=== PATIENT | male | born 1960 | race Caucasian/White ===

== ENCOUNTER 2022-05-09 18:56 | Emergency (ER) | payer MEDICARE, MEDICAID, SELFPAY ==
[2022-05-09 18:58] VITALS: BP 152/72; PULSE 69; RESP 16; TEMP 36.4; O2SAT 97; BMI 23.7
[2022-05-09 20:00] VITALS: BP 145/70; PULSE 71; RESP 16; TEMP 36.7; O2SAT 97
--- NOTE | 2022-05-09 20:11 | ED_ITS ---
HPI - Extremity Injury (Lower) General Chief Complaint: Extremity Pain/Injury, Lower Stated Complaint: Leg Wound Time Seen by Provider: 05/09/22 18:59 History of Present Illness HPI Narrative: 62-year-old man presenting to the emergency department with concern of wound/abrasions to his legs, feet. He fell on railroad tracks tripping over concrete in some open sandals. Cleaned himself up real good in the shower nearly immediately. Since that time has been applying hydrogen peroxide and covering with Band-Aids. He has also been showering twice daily though it sounds like this is his custom. He has some pain. He notes how the bandages he has been applying stick to the wound healing up tissue. He has an abrasion on the outer left knee/upper leg as well as a couple spots on his toes bilaterally that are apparently less involved and is also incidentally noted now a new bruis e on his left back. He is not having any pleuritic pain. He has not had a fever. No purulent drainage. Called in to triage line and recommended to be seen. He had had an appointment for tomorrow but has to help his daughter unfortunately. Primary concern is delayed healing and potential infection. Related Data Home Medications Medication Instructions Recorded Confirmed alprazolam 0.5 mg tablet mg 05/09/22 aspirin 81 mg chewable tablet 05/09/22 atorvastatin 10 mg tablet mg 05/09/22 eszopiclone 1 mg tablet mg 05/09/22 losartan 50 mg-hydrochlorothiazide tab 05/09/22 12.5 mg tablet olanzapine 2.5 mg tablet mg 05/09/22 suvorexant 5 mg tablet (Belsomra) mg PO 05/09/22 venlafaxine 37.5 mg tablet mg 05/09/22 zolpidem 10 mg tablet mg 05/09/22 Allergies Allergy/AdvReac Type Severity Reaction Status Date / Time fluoxetine [From Prozac] Allergy Severe suicidal Verified 05/09/22 20:15 prednisone Allergy Severe suicidal, Verified 05/09/22 20:15 agitation lisinopril Allergy Intermediate joint Verified 05/09/22 20:16 pain, weakness Sulfa (Sulfonamide Allergy Mild Hives Verified 05/09/22 19:08 Antibiotics) Review of Systems Status of ROS: Reports: 6 or more systems reviewed and unremarkable except as noted in History and below [facility] Medical History (Updated 05/09/22 @ 20:06 by Dario Valdez RN) Alcohol use disorder, moderate, in sustained remission Bicuspid aortic valve Bilateral cataracts Blindness of one eye Essential hypertension History of attention deficit disorder History of personality disorder History of posttraumatic stress disorder (PTSD) History of TIA (transient ischemic attack) Hyperlipidemia Mitral valve disease Murmur Sleep apnea Social anxiety disorder Surgical History (Updated 05/09/22 @ 20:11 by Dario Valdez RN) History of arthroscopy of left shoulder History of cataract removal with insertion of prosthetic lens History of tonsillectomy Social History Smoking Status: Former smoker Do you use any of these nicotine containing products: None Second hand tobacco smoke exposure: No How often do you have a drink containing alcohol: never How often do you have six or more drinks on one occasion: Never AUDIT-C Alcohol total score: 0 Non-prescribed substance use: denies use Exam Narrative: Exam Narrative: Pleasant. NAD. Skin is warm and dry. Breathing easily with out splinting Left mid posterior lateral chest wall with large/half palm sized oval bruise. Not terribly tender. Primary area in question of his skin is a about 3 discrete areas the largest 1 being on the upper outer aspect of the lower leg on the left. These are scrapes with yellowing granulation tissue in some areas and removed of that somewhat in others. There is faint erythema around it. There is no induration or marked tenderness. No purulent drainage. Flexes and extends the knee without apparent difficulty Const: Vital Signs, click to edit/add: Vital Signs - 24 hr 05/09/22 18:58 05/09/22 20:00 Temperature 97.6 F 98.0 F Pulse Rate [Right Pulse Oximeter] 69 71 Respiratory Rate 16 16 Blood Pressure [Ri ght Upper Arm] 152/72 H 145/70 H Pulse Oximetry 97 97 Oxygen Delivery Me thod Room Air Room Air Documenting provider has reviewed patient's vital signs: yes Course Vital Signs Vital signs: Initial Vital Signs Temperature 97.6 F 05/09/22 18:58 Temperature Source Temporal Artery Scan 05/09/22 18:58 Pulse Rate 69 05/09/22 18:58 Pulse Rhythm 05/09/22 18:58 Respiratory Rate 16 05/09/22 18:58 Blood Pressure 152/72 H 05/09/22 18:58 Blood Pressure Mean 98 05/09/22 18:58 Blood Pressure Position Sitting 05/09/22 18:58 Pulse Oximetry 97 05/09/22 18:58 Oxygen Delivery Method 05/09/22 18:58 Vital Signs Temperature 97.6 F 05/09/22 18:58 Pulse Rate 69 05/09/22 18:58 Respiratory Rate 16 05/09/22 18:58 Blood Pressure 152/72 H 05/09/22 18:58 Pulse Oximetry 97 05/09/22 18:58 Oxygen Delivery Method 05/09/22 18:58 Temperature 98.0 F 05/09/22 20:00 Pulse Rate 71 05/09/22 20:00 Respiratory Rate 16 05/09/22 20:00 Blood Pressure 145/70 H 05/09/22 20:00 Pulse Oximetry 97 05/09/22 20:00 Oxygen Delivery Method 05/09/22 20:00 MDM - Extremity Injury (Lower) MDM Narrative Medical decision making narrative: Given bacitracin and dressing supplies no evidence of cellulitis or other deeper injury Discharge Plan Discharge Clinical Impression: Chest wall contusion, Abrasion Patient Disposition: Home, Self-Care Condition: Stable Additional Instructions: Yes, hydrogen peroxide or even rubbing alcohol is good for initial cleaning but then does delay wound healing if continue use. Avoid scraping off that whitish-yellow tissue that is growing over the top; this is attempted new skin growth. Watch for spreading redness, increasing pain, purulent drainage. Consider placing this bacitracin ointment a couple of times daily over the next few days and may be covering lightly with nonstick pad at night to protect from sheets or what not. Okay to get wet, even lightly clean once daily, but try not to soak the wounded areas over the next week. 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 In about 5 days I'd start to dry up generally/dry dressing. Prescriptions: No Action atorvastatin 10 mg tablet olanzapine 2.5 mg tablet alprazolam 0.5 mg tablet venlafaxine 37.5 mg tablet aspirin 81 mg tablet,chewable zolpidem 10 mg tablet losartan-hydrochlorothiazide 50-12.5 mg tablet eszopiclone 1 mg tablet Belsomra 5 mg tablet PO Label Comments: TAKE 1 TABLET BY MOUTH AT BEDTIME Stand Alone [facility]: [facility] Info Instructions
== END 2022-05-09 19:50 | disposition home or self-care (01) ==
PROVIDERS: Emergency Provider Family Medicine
DX: S20.212A Contusion of left front wall of thorax, initial encounter (principal); S80.812A Abrasion, left lower leg, initial encounter; W01.0XXA Fall on same level from slipping, tripping and stumbling without subsequent striking against object, initial encounter; Y93.01 Activity, walking, marching and hiking; Y92.89 Other specified places as the place of occurrence of the external cause; Y99.8 Other external cause status
CPT/HCPCS: 99282; 99283

== ENCOUNTER 2022-06-21 22:44 | Emergency (ER) | payer OTHER, MEDICAID, SELFPAY ==
[2022-06-21 22:50] VITALS: BP 156/77; PULSE 63; RESP 16; TEMP 36.4; O2SAT 97; BMI 24.2
--- NOTE | 2022-06-21 23:08 | ED.NURSE ---
Pt refuses covid/flu test, Dr. Carrington updated.
[2022-06-21 23:17] LABS: Lactate* 0.6 mmol/L (0.5-1.9)
[2022-06-21 23:20] LABS: Basophils Absolute Auto 0.05 K/uL (0.00-0.30); Basophils Percent Auto 0.8 % (0.0-3.0); Eosinophils Absolute Auto 0.15 K/uL (0.00-0.50); Eosinophils Percent Auto 2.4 % (0.0-7.0); Hematocrit 43.1 % (37.0-53.0); Hemoglobin* 14.8 gm/dL (13.5-17.5); Lymphocytes Absolute Auto 2.15 K/uL (0.90-2.90); Lymphocytes Percent Auto 34.9 % (20-44); Mean Corpuscular HGB Conc 34 gm/dL (32-36); Mean Corpuscular Hemoglobin 32 pg (26-34); Mean Corpuscular Volume 94 fL (80-100); Monocytes Percent Auto 12.3 % (0.0-11.0); Neutrophils Absolute Auto 3.05 K/uL (1.7-7.0); Neutrophils Percent Auto 49.6 % (42.0-72.0); Platelet Count* 225 K/uL (140-440); RDW Coefficient of Variation % 12.3 % (11.5-15.5); White Blood Count* 6.16 K/uL (4.50-11.00)
[2022-06-21 23:24] LABS: Slide Review Reflex No
[2022-06-21 23:34] LABS: Albumin* 4.7 g/dL (3.3-5.0); Chloride* 107 mmol/L (96-114); Potassium* 4.6 mmol/L (3.6-5.1); Sodium* 138 mmol/L (135-149)
[2022-06-21 23:36] LABS: Aspartate Amino Transferase* 29 U/L (12-35); Bilirubin Direct* 0.1 mg/dL (0.0-0.5); Bilirubin Total* 0.4 mg/dL (0.1-1.5); Total Protein* 7.4 g/dL (6.0-8.3)
[2022-06-21 23:37] LABS: Alanine Aminotransferase* 27 U/L (4-50); Alkaline Phosphatase* 68 U/L (40-150); Creatinine* 0.8 mg/dL (0.5-1.5); Est. Creatinine Clearance* 73.15; Estimated Glomerular Filt Rate 99 ml/min
[2022-06-21 23:38] LABS: Appearance Urine Clear (Clear); Bilirubin Urine Negative (Negative); Blood Urine Negative (Negative); Color Urine Yellow (Yellow); Glucose Urine Negative (Negative); Ketones Urine Negative (Negative); Leukocyte Esterase Urine Negative (Negative); Nitrite Urine Negative (Negative); Protein Urine Negative (Negative); Specific Gravity Urine >= 1.030 (1.000-1.030); Urobilinogen Urine 0.2 (0.2-1.0); pH Urine 5.5 (5.0-8.5)
[2022-06-21 23:38] LABS: Blood Urea Nitrogen* 23 mg/dL (7-30); Calcium* 9.8 mg/dL (8.4-10.6); Carbon Dioxide* 24 mmol/L (20-32); Glucose* 104 mg/dL (60-115)
--- OUTSIDE RECORDS SUMMARY | 2022-06-21 23:40 | XMS_ITS | Encounter Summary ---
:1960 Author Organization [facility] Address [address] [place] [id number] Care Team Providers Name Role Phone [facility] Primary Care Provider [phone] Reason for Referral Consultation (Routine: Next available opening) - Pending Review Specialty Diagnoses / Procedures Referred By Contact Refer red To Contact Genetics, Clinical Diagnoses Vision loss TIA (transient ischemic attack) Breezy Glynn MD [facility] [address] [place] [address] Referral ID Status Reason Start Date Expiration Date Visits V isits Requested Authorized [id number] Pending 03/27/2022 03/27/2023 1 1 Review Encounter Details Date Type Department Care Team Description 03/27/2022 Transcribe Orders GENERIC EXTERNAL Provider, Generic T IA (transient ischemic attack) (Primary Dx); DATA DEPARTMENT External Data Vision loss Social History Tobacco Use Types Packs/Day Years Used Date Smoking Tobacco: Never Assessed Sex Assigned at Date Recorded Not on file documented as of this encounter Plan of Treatment Scheduled Referrals Name Type Priority Associated Diagnoses Order S chedu Adult Genetics & Referral Routine: Next Vision loss Expected: Metabolism Referral available opening TIA (transient 0 03/27/2022, ischemic attack) Expires: 03/27/2023 documented as of this encounter Visit Diagnoses Diagnosis TIA (transient ischemic attack) - Primar y Unspecified transient cerebral ischemia Vision loss Unspecified visual loss documented in this encounter Care Teams Film And Video Editor Relationship Specialty Start Date End Date [facility] PCP - General 09/27/[address] [place] [id number] documented as of this encounter
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
--- OUTSIDE RECORDS SUMMARY | 2022-06-21 23:40 | XMS_ITS | Clinical Summary ---
:1960 Author Organization [place] Address [address] [place] [address] Care Team Providers Name Role Phone Clinic, [facility] Primary Care Provider Allergies Active Allergy Reactions Severity Noted Date Comments Aripiprazole Other (See Comments) 05/07/2013 Had a s ore throat and felt like he was goi ng to pass out Azelastine Other (See Comments) 06/22/2019 Fluoxetine Other (See Comments) 12/23/2013 Peconic villagomez icidal/agitated with one dose Lisinopril Other (See Comments) 01/06/2018 Joint p ain fatigue weakness - even a light la dder Morphine Nausea 03/23/2020 Prednisone Other (See Comments) 10/20/2014 Suicida l; too agitated Sulfa Drugs 09/27/2019 Tizanidine Other (See Comments) 12/28/2019 Legs ga ve out from underneath him. Won't take again. Encounters Date Type Specialty Care Team Description 03/27/2022 Transcribe Orders Provider, Generic TIA ( transient ischemic attack) (Primary Dx); External Data Vision loss from Last 3 Months Social History Tobacco Use Types Packs/Day Years Used Date Smoking Tobacco: Never Assessed Sex Assigned at Date Recorded Not on file Last Filed Vital Signs Vital Sign Reading Time Taken Comments Blood Pressure 179/105 05/05/2020 9:28 PM CDT Pulse 72 05/05/2020 9:28 PM CDT Temperature 36.7 ??C (98.1 ??F) 05/05/2020 9:28 PM CDT Respiratory Rate 20 05/05/2020 9:28 PM CDT Oxygen Saturation 98% 05/05/2020 9:28 PM CDT Inhaled Oxygen Concentration - - Weight - - Height - - Body Mass Index - - Plan of Treatment Health Maintenance Due Date Last Done Comments ADVANCE CARE PLANNING 1960 ANNUAL REVIEW OF HM ORDERS 1960 CT COLONOGRAPHY 1960 FIT-DNA (Cologuard) 1960 FIT 1960 FLEX SIG 1960 HEPATITIS B IMMUNIZATION (1 1960 of 3 - 3-dose series) COVID-19 Vaccine (#1) 1960 COLONOSCOPY 1969 COLORECTAL CANCER SCREENING 1969 HIV SCREENING 1974 HEPATITIS C SCREENING 1977 LIPID 1994 ZOSTER IMMUNIZATION (1 of 2009 2) DTAP/TDAP/TD IMMUNIZATION 09/02/2016 09/02/2006, 03/27/2006 , (3 - Td or Tdap) 03/27/2006, Additional history exists PHQ-2 (once per calendar 09/02/2021 year) INFLUENZA VACCINE (#1) 2022 06/30/2008, 06/30/2008, 09/27/2006 MEDICARE ANNUAL WELLNESS 03/12/2023 03/12/2022 VISIT IPV IMMUNIZATION Aged Out No longer eligi ble based on patient 's age to complete this topic MENINGITIS IMMUNIZATION Aged Out No longe r eligible based on patient 's age to complete this topic Pneumococcal Vaccine: Aged Out No longer eligible Pediatrics (0 to 5 Years) based on patient's age and At-Risk Patients (6 to to co mplete this topic 64 Years) Insurance Payer Benefit Plan / Subscriber ID Effective Phone Address T ype Group Dates MEDICARE MEDICARE [id number] 2019-Prese [phone] ATTN NATALIO OR Medicare nt [address] [place] [address] [place] [id number] 2019-Prese [phone] [address] Medicaid [address] [place] [address] Care Teams Legal Project Manager Relationship Specialty Start Date End Date Papo Parekh PCP - General 09/27/[address] [place] [id number]
--- OUTSIDE RECORDS SUMMARY | 2022-06-21 23:40 | XMS_ITS | Clinical Summary ---
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
--- OUTSIDE RECORDS SUMMARY | 2022-06-21 23:40 | XMS_ITS ---
:1960 Author Organization Cathy Ibarra MD Address [address] [place] [id number] Care Team Providers Name Role Phone CATHY IBARRA Unavailable Unavailable PROBLEMS Type Condition ICD9-CM Code [id number] Code Onset Condition SNO MED Code Dates Status Problem Intraspinal 324.1 Active 9081229 abscess Problem Pain in thoracic 724.1 Active 267 666143 spine ALLERGIES No Information ENCOUNTERS Encounter Location Date Diagnosis [facility] [address] [facility] 17 Sep, 2014 Pain in t horacic spine [facility] [place] [place] [address] and [place] [id number] abscess 324.1 IMMUNIZATIONS No Known Immunizations SOCIAL HISTORY Never Assessed REASON FOR REFERRAL FUNCTIONAL STATUS PLAN OF CARE VITAL SIGNS MEDICATIONS Unknown Medications PROCEDURES No Known procedures RESULTS No Results REASON FOR VISIT Please see [facility] consult report Insurance Providers [facility] Health Member Patient Patient Patient Patient Patient Subscriber Subscriber Subscriber Group Insurance Plan Plan Plan Plan ID Relationship Address Phone Name Date of ID Name Date of No Type Insurance Insurance Insurance Coverage to Subscriber Address Phone Name Dates MEDICARE [phone] MEDICARE self Marco [id number] PART B [id number] [place] [id number]
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
--- OUTSIDE RECORDS SUMMARY | 2022-06-21 23:40 | XMS_ITS ---
:1960 Author Organization Cathy Ibarra MD Address [address] [place] [phone] Care Team Providers Name Role Phone CATHY IBARRA Unavailable Unavailable PROBLEMS Type Condition ICD9-CM Code [id number] Code Onset Condition SNO MED Code Dates Status Problem Intraspinal 324.1 Active 6765436 abscess Problem Pain in thoracic 724.1 Active 267 174637 spine ALLERGIES No Information ENCOUNTERS Encounter Location Date Diagnosis [place] [address] [facility] 17 Sep, 2014 Pain in t horacic [facility] [place] [place] [address] and [place] [id number] abscess 324.1 IMMUNIZATIONS No Known Immunizations SOCIAL HISTORY Never Assessed REASON FOR REFERRAL FUNCTIONAL STATUS PLAN OF CARE VITAL SIGNS MEDICATIONS Unknown Medications PROCEDURES No Known procedures RESULTS No Results REASON FOR VISIT Please see [facility] consult report Insurance Providers [facility] Health Health Member Patient Patient Patient Patient Patient Subscriber Subscriber Subscriber Group Insurance Plan Plan Plan Plan ID Relationship Address Phone Name Date of ID Name Date of No Type Insurance Insurance Insurance Coverage to Subscriber Address Phone Name Dates MEDICARE [phone] MEDICARE self Marco [id number] PART B [id number] [place] [address]
--- OUTSIDE RECORDS SUMMARY | 2022-06-21 23:40 | XMS_ITS | Encounter Summary ---
:1960 Author Organization [place] Address [facility] [place] [address] Care Team Providers Name Role Phone Unavailable Primary Care Provider Unavailable Encounter Details Date Type Department Care Team Description 10/18/2014 Telephone [facility] Nurse Aline Pardo, RN [employer] [address] [place] [address] Social History Tobacco Use Types Packs/Day Years Used Date Smoking Tobacco: Never Assessed Sex Assigned at Date Recorded Not on file documented as of this encounter Miscellaneous Notes Telephone Encounter - Constance Pardo, RN - 10/18/2014 11:56 PM CST Call Type: Triage Call Presenting Problem: I have had so much more anxiety . I am very dizzy. It does not go away. I was at ER today, then I saw a counselor. I just cannot get ahead of this. Tonight my head is just spinning. I can't take it. Caller denies any suicidal ideation. Triaged to ER. He will not drive and will go to [facility]. Triage Note: Guideline Title: Anxiety: Panic ; Anxiety Recommended Disposition: See ED Immediately Original Inclination: Did not know what to do Override Disposition: Intended Action: Follow advice given Physician Contacted: No Dizziness, faintness, or lightheadedness lasting more than 15 minutes ? YES Unable to stand due to faintness, dizziness, or lightheadedness ? NO Not oriented to person, time, and place ? NO Describing symptoms of depression ? NO Severe breathing problems ? NO Hearing voices that no one else hears or seeing things that no one else sees ? NO Any suicidal or homicidal attempt(s) or gesture(s) in progress ? NO Any other cardiac signs/symptoms for more than 5 minutes, now or within last hour. Pain is NOT associated with taking a deep breath or a productive cough, movement, or touch to a localized area on the chest or upper body. ? NO Any homicidal/destructive ideation, any suicidal ideation, any history of suicide attempts, and/or any history of self destructive behavior ? NO Any homicidal/destructive ideation, any suicidal ideation, any history of suicide attempts, and/or any history of self destructive behavior ? NO Physician Instructions: Care Advice: Protect the patient from falling or other harm. Another adult should drive. Should not be alone, arrange for support (family member, friend, etc.). IMMEDIATE ACTION Avoid the use of stimulants including caffeine (coffee, some soft drinks, some energy drinks, tea and chocolate), cocaine, and amphetamines. Also avoid drinking alcohol. 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
--- OUTSIDE RECORDS SUMMARY | 2022-06-21 23:40 | XMS_ITS | Encounter Summary ---
:1960 Author Organization [place] Address [address] [place] [address] Care Team Providers Name Role Phone [facility] Primary Care Provider [phone] Encounter Details Date Type Department Care Team Description 09/27/2019 Travel Social History Tobacco Use Types Packs/Day Years Used Date Smoking Tobacco: Never Assessed Sex Assigned at Date Recorded Not on file documented as of this encounter Plan of Treatment Not on filedocumented as of this encounter Visit Diagnoses Not on filedocumented in this encounter Care Teams Gym Supervisor Relationship Specialty Start Date End Date [facility] PCP - General 09/27/[address] [place] [address] documented as of this encounter
[2022-06-21 23:41] LABS: C Reactive Protein* < 0.5 mg/dL (0.5-1.0)
[2022-06-21 23:44] LABS: RBC Urine 0-2 (0-2); Squamous Epithelial Cell Urine Few (None-Few); WBC Urine 0-2 (0-5)
[2022-06-21 23:54] LABS: Troponin I* < 0.01 ng/mL (0.01-0.04)
--- NOTE | 2022-06-22 00:53 | ED.GENADULT ---
HPI - General Adult General Chief complaint: Weakness Stated complaint: weakness Time Seen by Provider: 06/21/22 22:46 Source: patient Mode of arrival: ambulatory Limitations: no limitations History of Present Illness HPI narrative: 62-year-old male coming in today complaining of feeling weak. He states he was walking up the steps at a game arena, and he felt like his legs were very heavy when he got towards the top of the bleachers. He denied feeling any chest pain. He thought perhaps he felt a little short of breath. He states that it is he was able to finish getting to where he was going but he feels more tired than normal. He denies any recent illness, fevers or chills. No nausea or vomiting. Normal appetite today although he has eaten very little because he has been busy. He states that he has barely had 1 glass of water if that today as well. Feels like he slept fine last night. Denies any tobacco or alcohol use today. States that he has not worked out in about a month. He denies any skin rashes. He denies any focal neurologic deficits. He states that the weakness and having he felt was bilateral of both legs. He does not really feel that weak right now. Related Data Home Medications Medication Instructions Recorded Confirmed alprazolam 0.5 mg tablet mg 05/09/22 aspirin 81 mg chewable tablet 05/09/22 atorvastatin 10 mg tablet mg 05/09/22 eszopiclone 1 mg tablet mg 05/09/22 losartan 50 mg-hydrochlorothiazide tab 05/09/22 12.5 mg tablet olanzapine 2.5 mg tablet mg 05/09/22 suvorexant 5 mg tablet (Belsomra) mg PO 05/09/22 venlafaxine 37.5 mg tablet mg 05/09/22 zolpidem 10 mg tablet mg 05/09/22 Allergies Allergy/AdvReac Type Severity Reaction Status Date / Time fluoxetine [From Prozac] Allergy Severe suicidal Verified 06/21/22 22:58 prednisone Allergy Severe suicidal, Verified 06/21/22 22:58 agitation lisinopril Allergy Intermediate joint Verified 06/21/22 22:58 pain, weakness Sulfa (Sulfonamide Allergy Mild Hives Verified 06/21/22 22:58 Antibiotics) Review of Systems Status of ROS: Reports: 10 or more systems reviewed and unremarkable except as noted in History and below PFSH PFSH Medical History Alcohol use disorder, moderate, in sustained remission Bicuspid aortic valve Bilateral cataracts Blindness of one eye Essential hypertension History of attention deficit disorder History of personality disorder History of posttraumatic stress disorder (PTSD) History of TIA (transient ischemic attack) Hyperlipidemia Mitral valve disease Murmur Sleep apnea Social anxiety disorder Surgical History History of arthroscopy of left shoulder History of cataract removal with insertion of prosthetic lens History of tonsillectomy Social History Smoking Status: Former smoker Do you use any of these nicotine containing products: None Second hand tobacco smoke exposure: No How often do you have a drink containing alcohol: monthly or less AUDIT-C Alcohol total score: 1 Non-prescribed substance use: denies use Exam Narrative: Exam Narrative: Well-nourished well-developed patient in no acute distress. Alert and oriented. Answers questions appropriately. Mood and affect are appropriate. Thoughts are goal oriented and rational. No tangential or magical thinking noted. Patient speaks in full sentences without needing to catch their breath. Speech is not slurred or pressured. There is no facial asymmetry. HEENT: Normocephalic atraumatic. Pupils are equally round reactive to light. Extraocular muscles are intact. Conjunctivae are moist without any icterus noted. Moist mucous membranes. Posterior pharynx is normal. Neck is soft without any lymphadenopathy or thyromegaly. No masses are appreciated. Cardiovascular: Heart is regular rate and rhythm S1 and S2 are present without any murmurs. Lungs: Clear to auscultation bilaterally no wheezes rhonchi or rales are appreciated. Patient takes deep breaths without any discomfort. Abdomen: Soft and nontender nondistended with normal bowel sounds. Extremities: Bilateral lower extremities are without edema. Normal DP and PT pulses. Skin: Well perfused without any obvious rashes. Strength is 5/5 of the upper and lower extremities. Reflexes are 2+ and symmetric at the knees. Romberg sign is negative. Cranial nerves 3-12 are normal. There is no nystagmus either horizontally or vertically. Gait is normal. Const: Vital Signs, click to edit/add: Vital Signs - 24 hr 06/21/22 22:50 Temperature 97.6 F Pulse Rate [Right Pulse Oximeter] 63 Respiratory Rate 16 Blood Pressure [Le ft Upper Arm] 156/77 H Pulse Oximetry 97 Oxygen Delivery Me thod Room Air Course Course Hospital Course: Proceeded with blood work which was unremarkable. EKG showed normal sinus rhythm. Vital Signs Vital signs: Initial Vital Signs Temperature 97.6 F 06/21/22 22:50 Temperature Source Temporal Artery Scan 06/21/22 22:50 Pulse Rate 63 06/21/22 22:50 Respiratory Rate 16 06/21/22 22:50 Blood Pressure 156/77 H 06/21/22 22:50 Blood Pressure Mean 103 06/21/22 22:50 Blood Pressure Position Semi-Fowlers 06/21/22 22:50 Pulse Oximetry 97 06/21/22 22:50 Oxygen Delivery Method 06/21/22 22:50 Vital Signs Temperature 97.6 F 06/21/22 22:50 Pulse Rate 63 06/21/22 22:50 Respiratory Rate 16 06/21/22 22:50 Blood Pressure 156/77 H 06/21/22 22:50 Pulse Oximetry 97 06/21/22 22:50 Oxygen Delivery Method 06/21/22 22:50 Temperature 97.6 F 06/21/22 22:50 Pulse Rate 63 06/21/22 22:50 Respiratory Rate 16 06/21/22 22:50 Blood Pressure 156/77 H 06/21/22 22:50 Pulse Oximetry 97 06/21/22 22:50 Oxygen Delivery Method 06/21/22 22:50 Medical Decision Making MDM Narrative Medical decision making narrative: 62-year-old male with episode of feeling weak, heavy legs, fatigue. We discussed the multiple etiologies for these symptoms and we discussed that he should follow up with his primary care provider at this time for further testing if he does not improve after a good night's sleep, full day of nutritious meals and increasing his water intake. Certainly return to the ED if he develops increasing shortness of breath or chest pain. Patient was agreeable with everything we discussed. Had no other questions. Medical Records Medical records reviewed: Yes I reviewed the patient's medical records Lab Data Lab results reviewed: Yes I reviewed the patient's lab results Labs: Lab Results 06/21/22 06/21/22 06/21/22 Range/Units 23:10 23:10 23:10 WBC 6.16 (4.50-11.00) K/uL RBC 4.60 (4.30-5.90) m/uL Hgb 14.8 (13.5-17.5) gm/dL Hct 43.1 (37.0-53.0) % MCV 94 (80-100) fL MCH 32 (26-34) pg MCHC 34 (32-36) gm/dL RDW Coeff of Remi 12.3 (11.5-15.5) % Plt Count 225 (140-440) K/uL Neut % (Auto) 49.6 (42.0-72.0) % Lymph % (Auto) 34.9 (20-44) % [place] % (Auto) 12.3 H (0.0-11.0) % Eos % (Auto) 2.4 (0.0-7.0) % Baso % (Auto) 0.8 (0.0-3.0) % Neut # (Auto) 3.05 (1.7-7.0) K/uL Lymph # (Auto) 2.15 (0.90-2.90) K/uL [place] # (Auto) 0.80 (0.00-0.90) K/UL Eos # (Auto) 0.15 (0.00-0.50) K/uL Baso # (Auto) 0.05 (0.00-0.30) K/uL Abs Immat Gran (auto) 0.00 (0.00-0.30) K/uL Sodium 138 (135-149) mmol/L Potassium 4.6 (3.6-5.1) mmol/L Chloride 107 (96-114) mmol/L Carbon Dioxide 24 (20-32) mmol/L BUN 23 (7-30) mg/dL Creatinine 0.8 (0.5-1.5) mg/dL Estimated Creat Clear 73.15 Estimated GFR 99 ml/min Glucose 104 (60-115) mg/dL Lactate (0.5-1.9) mmol/L Calcium 9.8 (8.4-10.6) mg/dL Total Bilirubin 0.4 (0.1-1.5) mg/dL Direct Bilirubin 0.1 (0.0-0.5) mg/dL AST 29 (12-35) U/L ALT 27 (4-50) U/L Alkaline Phosphatase 68 (40-150) U/L Troponin I < 0.01 L (0.01-0.04) ng/mL C-Reactive Protein < 0.5 L (0.5-1.0) mg/dL Total Protein 7.4 (6.0-8.3) g/dL Albumin 4.7 (3.3-5.0) g/dL TSH (0.270-4.20) uIU/mL Urine Color (Yellow) Urine Appearance (Clear) Urine pH (5.0-8.5) Ur Specific [place] (1.000-1.030) Urine Protein (Negative) Urine Glucose (UA) (Negative) Urine Ketones (Negative) Urine Blood (Negative) Urine Nitrite (Negative) Urine Bilirubin (Negative) Urine Urobilinogen (0.2-1.0) Ur Leukocyte Esterase (Negative) Urine RBC (0-2) Urine WBC (0-5) Ur Squamous Epith Cells (None-Few) Urine Bacteria (None) 06/21/22 06/21/22 06/21/22 Range/Units 23:10 23:10 23:30 WBC (4.50-11.00) K/uL RBC (4.30-5.90) m/uL Hgb (13.5-17.5) gm/dL Hct (37.0-53.0) % MCV (80-100) fL MCH (26-34) pg MCHC (32-36) gm/dL RDW Coeff of Remi (11.5-15.5) % Plt Count (140-440) K/uL Neut % (Auto) (42.0-72.0) % Lymph % (Auto) (20-44) % [place] % (Auto) (0.0-11.0) % Eos % (Auto) (0.0-7.0) % Baso % (Auto) (0.0-3.0) % Neut # (Auto) (1.7-7.0) K/uL Lymph # (Auto) (0.90-2.90) K/uL [place] # (Auto) (0.00-0.90) K/UL Eos # (Auto) (0.00-0.50) K/uL Baso # (Auto) (0.00-0.30) K/uL Abs Immat Gran (auto) (0.00-0.30) K/uL Sodium (135-149) mmol/L Potassium (3.6-5.1) mmol/L Chloride (96-114) mmol/L Carbon Dioxide (20-32) mmol/L BUN (7-30) mg/dL Creatinine (0.5-1.5) mg/dL Estimated Creat Clear Estimated GFR ml/min Glucose (60-115) mg/dL Lactate 0.6 (0.5-1.9) mmol/L Calcium (8.4-10.6) mg/dL Total Bilirubin (0.1-1.5) mg/dL Direct Bilirubin (0.0-0.5) mg/dL AST (12-35) U/L ALT (4-50) U/L Alkaline Phosphatase (40-150) U/L Troponin I (0.01-0.04) ng/mL C-Reactive Protein (0.5-1.0) mg/dL Total Protein (6.0-8.3) g/dL Albumin (3.3-5.0) g/dL TSH 2.750 (0.270-4.20) uIU/mL Urine Color Yellow (Yellow) Urine Appearance Clear (Clear) Urine pH 5.5 (5.0-8.5) Ur Specific [place] >= 1.030 (1.000-1.030) Urine Protein Negative (Negative) Urine Glucose (UA) Negative (Negative) Urine Ketones Negative (Negative) Urine Blood Negative (Negative) Urine Nitrite Negative (Negative) Urine Bilirubin Negative (Negative) Urine Urobilinogen 0.2 (0.2-1.0) Ur Leukocyte Esterase Negative (Negative) Urine RBC 0-2 (0-2) Urine WBC 0-2 (0-5) Ur Squamous Epith Cells Few (None-Few) Urine Bacteria None (None) ECG Data Attestation: I personally reviewed and interpreted this ECG as follows: (Normal sinus rhythm, pulse 62, no acute ST changes) Discharge Plan Discharge Clinical Impression: Weakness Patient Disposition: Home, Self-Care Condition: Stable Additional Instructions: Recommend you start your exercise program again. Make sure you are eating healthy, nutritious foods and increase your water intake on a daily basis. If you do not notice a difference in the next couple of days, follow-up with your primary care provider for further testing. Prescriptions: No Action atorvastatin 10 mg tablet olanzapine 2.5 mg tablet alprazolam 0.5 mg tablet venlafaxine 37.5 mg tablet aspirin 81 mg tablet,chewable zolpidem 10 mg tablet losartan-hydrochlorothiazide 50-12.5 mg tablet eszopiclone 1 mg tablet Belsomra 5 mg tablet PO Label Comments: TAKE 1 TABLET BY MOUTH AT BEDTIME Follow Up/Referrals: Breezy Gylnn MD [Primary Care Provider] - Stand Alone Forms: [employer] Info Instructions
== END 2022-06-22 00:15 | disposition home or self-care (01) ==
PROVIDERS: Emergency Provider Family Medicine; PCP Family Medicine
DX: R53.1 Weakness (principal); R53.83 Other fatigue
CPT/HCPCS: 36415; 80048; 80076; 81001; 83605; 84443; 84484; 85025; 86140; 87086; 87631; 93005; 99284

== ENCOUNTER 2022-08-31 14:52 | Emergency (ER) | payer OTHER, MEDICAID, SELFPAY ==
[2022-08-31 14:55] VITALS: BP 186/83; PULSE 62; TEMP 35.9; O2SAT 99; BMI 25.8
[2022-08-31 15:09] VITALS: BP 176/89; PULSE 63; O2SAT 99
[2022-08-31 15:10] VITALS: PULSE 64; O2SAT 99
[2022-08-31 15:30] VITALS: PULSE 71; O2SAT 98
[2022-08-31 15:32] VITALS: BP 171/87; PULSE 61; O2SAT 98
[2022-08-31 15:33] VITALS: PULSE 58; O2SAT 98
--- OUTSIDE RECORDS SUMMARY | 2022-08-31 15:39 | XMS_ITS ---
:1960 Author Organization Cathy Ibarra MD Address [address] [place] [id number] Care Team Providers Name Role Phone CATHY IBARRA Unavailable Unavailable PROBLEMS Type Condition ICD9-CM Code [id number] Code Onset Condition SNO MED Code Dates Status Problem Intraspinal 324.1 Active 0991526 abscess Problem Pain in thoracic 724.1 Active 267 352385 spine ALLERGIES No Information ENCOUNTERS Encounter Location Date Diagnosis [place] [address] 17 Sep, 2014 Pain in t horacic [facility] [place] [place] [address] and [place] [id number] abscess 324.1 IMMUNIZATIONS No Known Immunizations SOCIAL HISTORY Never Assessed REASON FOR REFERRAL FUNCTIONAL STATUS PLAN OF CARE VITAL SIGNS MEDICATIONS Unknown Medications PROCEDURES No Known procedures RESULTS No Results REASON FOR VISIT Please see [facility] consult report Insurance Providers [facility] Member Patient Patient Patient Patient Patient Subscriber Subscriber Subscriber Group Insurance Plan Plan Plan Plan ID Relationship Address Phone Name Date of ID Name Date of No Type Insurance Insurance Insurance Coverage to Subscriber Address Phone Name Dates MEDICARE [phone] MEDICARE self Marco [id number] PART B [id number] [place] [address]
--- OUTSIDE RECORDS SUMMARY | 2022-08-31 15:40 | XMS_ITS ---
:1960 Author Organization Cathy Ibarra MD Address [address] [place] [id number] Care Team Providers Name Role Phone CATHY IBARRA Unavailable Unavailable PROBLEMS Type Condition ICD9-CM Code [id number] Code Onset Condition SNO MED Code Dates Status Problem Intraspinal 324.1 Active 0369866 abscess Problem Pain in thoracic 724.1 Active 267 723493 spine ALLERGIES No Information ENCOUNTERS Encounter Location Date Diagnosis [place] [address] [facility] 17 Sep, 2014 Pain in t horacic spine [facility] [place], [place] [address] and [place] [id number] abscess 324.1 IMMUNIZATIONS No Known Immunizations SOCIAL HISTORY Never Assessed REASON FOR REFERRAL FUNCTIONAL STATUS PLAN OF CARE VITAL SIGNS MEDICATIONS Unknown Medications PROCEDURES No Known procedures RESULTS No Results REASON FOR VISIT Please see [facility] consult report Insurance Providers [facility] Health Member Patient Patient Patient Patient Patient Subscriber Subscriber Subscriber Group Insurance Plan Plan Plan Plan ID Relationship Address Phone Name Date of ID Name Date of No Type Insurance Insurance Insurance Coverage to Subscriber Address Phone Name Dates MEDICARE [phone] MEDICARE self Marco [id number] PART B [id number] [place] [address]
--- OUTSIDE RECORDS SUMMARY | 2022-08-31 15:40 | XMS_ITS | Continuity of Care Document ---
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 Patient ed on findings. P rescribed Combigan BID OS. Patient instructed to contact E&V immediately if condition or vision worsens. Voiced understanding. RTC in 7-10 days for IOP check. ?? Ordered: Combigan ophthalmic solution, 1 drops, E ye-Left, BID, # 15 mL, 1 Refill(s), Start Date: 08/09/22 16:15:00 SOFTWARE ENGINEERING MANAGER, Pharmacy: [facility] #[id number] ?? 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 ?H33.22 [address] OS. H/o ocular trauma in childhoo d OS. Patient ed on exam findings and on signs/symptoms of retinal detachment. Patient instructed to contact E&V immediately if experiences an increase in hammad aters/flashes/curtaining or veiling of v ision. Voiced understanding. Patient instructed to follow-up with his retina specialist as directed (located in [place]/pt reports having appt scheduled at end of August). Voiced understanding. Monitor. ? 3.??History of eye trauma??Z87.828 see H40.052 ? 4.??Pseudophakia of both eyes??Z96.1 PCIOL centered OU. Patient ed on finding s. Monitor. ? Return to Clinic: ?Return for IOP check in 7-10 d ays ? I, Angela Murillo, Optometry High School [employer] Teacher, ??a m scribing for, ??and in the presence of, Dr. Wyman.?? I, Dr. Shabbir Wyamn, personally perfor med the service documented, as scribed by Angela Murillo, Optometry [employer] Teacher, in my presence, and authenticate that the documentation accurately represents these services and the decision I made. Future Appointments Functional Status 08/09/22 Recent Travel History No recent travel Family Member Travel History No recent travel Other exposure to Infectious Disease None Medications Combigan ophthalmic solution 1 drops, Eye-Left, BID, # 15 mL, 1 Refill(s), Start Date: 08/09/22 16:15:00 SOFTWARE ENGINEERING MANAGER, Pharmacy: [facility] #[id number] Start Date: 08/09/22 Stop Date: 10/08/22 Status: Orderedzolpidem 0 Refill(s), Start Date: 08/09/22 15:09:00 SOFTWARE ENGINEERING MANAGER Start Date: 08/09/22 Status: Ordered Problem List Condition Confirmation Course Effective Dates Status Health Stat us Informant Pseudophakia of Confirmed Active both eyes History of eye Confirmed Active trauma Ocular hypertension Confirmed Active of left eye Old retinal Confirmed Active detachment of left eye Social History Social History Type Response Tobacco Tobacco Use: Never tobacco u ser. Sex Male Optometry Outpatient Note Rachel AbrahamA: PERFORM Event Display: Optometry Office Clinic Note Authored Date: [id number] Electronically Signed on 08/09/22 04:18 PM Rachel Abraham MANAGER SEARCH Electronically Signed on 08/09/22 04:25 PM Garo Shabbir OD Ophthalmology Outpatient Note Shabbir Wyman OD: MODIFY Shabbir Wyman OD: MODIFY Nadia Holland STORE STOCK HELP: PERFORM, MODIFY Nadia Holland STORE STOCK HELP: MODIFY, MODIFY, MODIFY Angela Murillo STORE STOCK HELP: MODIFY AbrahamRachel chavez Mark MANAGER SEARCH: MODIFY Event Display: Ophthalmology Office Clinic Note Authored Date: [id number] LYLY ARANDA JR :1960 Age:62 years Sex:Male Visit Date:08/09/2022 Chief Complaint New patient complains of pressure sensation OS. History of Present Illness New patient is here today for a check eye OS. Patient states that, about 2 weeks ago, he began to get a pressure sensation in the left eye. Patient states this that this left eye has also had some blurry vision in the left eye since this began as well, which has also been on and off. Patient states that he has had a vitrectomy of the left eye at least three time, as well as a partial retinal detachment that has been previously lasered. Patient feels like his current symptoms may be related to his current glasses, as he feels they are not working well. PT states he did have an episode 5 days ago??where??he noticed floaters, small black dots, OU??and some flashes??in his vision, followed by a migraine, PT thinks it may have been related to elevated blood pressure. PT states there is a history of trauma to the OS in his childhood. Pt states he sees two different providers for his eye care. PT sees Dr. Emmanuel Gusman with [facility] in [place], [place]; and Dr. Jorge A Enriquez with [facility] [place]. No other vision complaints at this time. ? Mental Status:??alert & oriented x3, appropriate mood & affect Review of Systems Constitutional ROS: Within normal limits HEENT ROS: Other: Hx of vitretocmy OS, Hx of retinal detachment OS, pseudophakia OU, irregular iris OS Respiratory ROS: Within normal limits Cardiovascular ROS: Other: high BP, high cholesterol GI ROS: Within normal limits ROS: Within normal limits Dion/Lymph ROS: Within normal limits Endocrine ROS: Within normal limits Immunologic ROS: Within normal limits Musculoskeletal ROS: Within normal limits Integumentary ROS: Within normal limits Neuro ROS: Within normal limits Psychiatric ROS: Within normal limits Problem List/Past Medical History Ongoing No qualifying data Historical No qualifying data Medications Inpatient No active inpatient medications Home zolpidem Allergies No Known Allergies Social History Electronic Cigarette/Vaping Electronic Cigarette Use: Never. Tobacco Tobacco Use: Never tobacco user. Physical Exam Ophthalmology Measurements Visual Acuity 08/09/2022 14:59 SOFTWARE ENGINEERING MANAGER sc cc cCL ph Low Vision TestOD 20/30-2 20/15-1 OS 20/40-1 20/25-1 sc near cc near cCL near Testing AtOD OS Distance Correction Without Correction Near Correction Comments: Pupil Measurements 08/09/2022 14:59 SOFTWARE ENGINEERING MANAGER Are Pupils Equal? Yes In Dark In Light Diameter RAPD Shape Diameter RAPD ShapeOD 3.5 mm Not present Round OS 3.5 mm Not present Surgical Comments: Motility 08/09/2022 14:59 SOFTWARE ENGINEERING MANAGER Ocular Motility: OD OS SR IO IO SR LR MR MR LR IR SO SO IR Comments: FROM OU, patient denies diplopia, but report sharp pressrue-type pain sup OU with gaze inall directions. Visual Lazaro 08/09/2022 14:59 SOFTWARE ENGINEERING MANAGER Normal by confrontation testing OU OD OS Comments: Full to finger count OU Tonometry 08/09/2022 Time of Test 15:26:00 15:42:00 OD 14 12 OS 29 24 IOP Method Tonopen Tonopen Comments 95% ED, first attempt OS 31 95% TAJ Second IOP check performed post dilation Dilation 08/09/2022 14:59 SOFTWARE ENGINEERING MANAGER Dilation Time Dilated 15:26:00 Medication for Dilation tropicamide 1%, phenylephrine 2.5% Patient Education Dilation Response Comments: Color Vision Test 08/09/2022 14:59 SOFTWARE ENGINEERING MANAGER Test Type: Ishihara Correct Total Plates CommentsOD 9 9 OS 9 9 ?? I, Nadia Holland CPO, am scribing for, and in the presence of, Dr. Wyman.?? I, Dr. Shabbir Wyman, personally performed the service documented, as scribed by Nadia Holland in my presence, and authenticate that the documentation accurately represents these services and the decision I made. ? External Examination: ?? Slit Lamp Exam?Anterior Segment ?Right Eye ??Left Eye ??Periorbital: ?wnl ??wnl ??Lids/Lashes: ??MGD, TEL ??MGD, TEL ??Lacrimal System/Tears: ??wnl ??wnl ??Conjunctiva: ??wnl ??wnl ??Sclera: ??wnl ??wnl ??Cornea: ??clear ??clear ??Anterior Chamber: ??4+ D&Q ??4+ D&Q ??Iris: ??wnl ??fibrosis, atrophy temp ??Lens: ??centered PCIOL ??centered PCIOL ? Posterior Segment ?View:?90D lens / 20D lens / dilated views OU?Right Eye ??Left Eye ??Vitreous: ??syneresis, no Downs's signs ??syneresis, no Mere's signs ??Optic Nerve: ??Matthews, distinct ??Matthews, distinct ??Cup/Disc Ratio: ??0.15/0.15 ??0.3/0.3 ??Vessels: ??wnl ??wnl ??Macula: ??ERM ??ERM ??Periphery: ??No BHTs 360 ??old RD with barricade laser scars, no new BHTs 360 ?Macular OCT Testing ?Indication for OCT:??Monitor for progression of condition?OCT Results:?OD Macular OCT Interpretation: ?Image Quality:??Good:?56 ?Central Macular Thickness:??184 ?Comments:??normal foveal contour,??mild disorganization of retinal layers, mild ERM, no edema, no CNVM, no comparison available ?OS Macular OCT Interpretation: ?Image Quality:??Good:43?Central Macular Thickness:??202 ?Comments:??normal foveal contour,??mild disorganization of retinal layers, mild ERM, no edema, no CNVM, no comparison available ? Assessment/Plan 1.??Ocular hypertension of left eye??H40.052 Ocular HTN OS. Patient ed on findings. Prescribed Combigan BID OS. Patient instructed to contact E&V immediately if condition or vision worsens. Voiced understanding. RTC in 7-10 days for IOP check. ?? Ordered: Combigan ophthalmic solution, 1 drops, Eye-Left, BID, # 15 mL, 1 Refill(s), Start Date: 08/09/22 16:15:00 SOFTWARE ENGINEERING MANAGER, Pharmacy: [facility] #[id number] ?? 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 H/o ocular trauma in childhood OS. Patient ed on exam findings and on signs/symptoms of retinal detachment. Patient instructed to contact E&V immediately if experiences an increase in floaters/flashes/curtaining or veiling of vision. Voiced understanding. Patient instructed to follow-upwith his retina specialist as directed (located in [place]/pt reports having appt scheduled at [facility] August). Voiced understanding. Monitor. ? 3.??History of eye trauma??Z87.828 see H40.052 ? 4.??Pseudophakia of both eyes??Z96.1 PCIOL centered OU. Patient ed on findings. Monitor. ? Return to Clinic: ?Return for IOP check in 7-10 days ? I, Angela Murillo, Optometry [employer], ??am scribing for, ??and in the presence of, Dr. Wyman.?? I, Dr. Shabbir Wyman, personally performed the service documented, as scribed by Angela Murillo, Optometry [employer] Teacher, in my presence, and authenticate that the documentation accurately represents these services and the decision I made. Nadia Holland CPO Electronically Signed on 08/09/22 07:05 PM Shabbir Wyman OD
--- OUTSIDE RECORDS SUMMARY | 2022-08-31 15:40 | XMS_ITS | Continuity of Care Document ---
:1960 Author Organization [facility] Address [address] [place] [address]- Encounter [facility] [id number] Date(s): 08/16/22 - 08/16/22 [facility] [place] [address] [place] [address]- Encounter Diagnosis Ocular hypertension of left eye (Discharge Diagnosis) - 08/16/22 History of eye trauma (Discharge Diagnosis) - 08/16/22 Pseudophakia of both eyes (Discharge Diagnosis) - 08/16/22 Discharge Disposition: Home or Self Care Attending Physician: Shabbir Wyman OD Allergies, Adverse Reactions, Alerts No Known Allergies Assessment and Plan Extracted from: Title: E&V Office Visit Author: Kathie Mauricio Date: 2 1.??Ocular hypertension of left eye??H40 .052 H/o ocular HTN OS. IOP improved with use of Combigan BID OS. Patient ed on findings. CPM. Patient instructed to follow-up with his managing eyecare providers in [place]. Voiced understanding. RTC PRN. ?? 2.??History of eye trauma??Z87.828 see H40.052 ?? 3.??Pseudophakia of both eyes??Z96.1 PCIOL OU. Condition stable. Patient ed o n findings. Monitor. ? Return to Clinic: RTC PRN. ? I, Angela Murillo, Optometry Director Of Neurology, ??a m scribing for, ??and in the presence of, Dr. Wyman.?? I, Dr. Shabbir Wyman, personally perfor med the service documented, as scribed by Angela Murillo, Optometry Director Of Neurology, in my presence, and authenticate that the documentation accurately represents these services and the decision I made. Functional Status 08/16/22 Recent Travel History No recent travel Family Member Travel History No recent travel Other exposure to Infectious Disease None Medications Combigan ophthalmic solution 1 drops, Eye-Left, BID, # 15 mL, 1 Refill(s), Start Date: 08/09/22 16:15:00 NEWS PRODUCTION ASSISTANT, Pharmacy: [id number] Start Date: 08/09/22 Stop Date: 10/08/22 Status: Orderedzolpidem 0 Refill(s), Start Date: 08/09/22 15:09:00 NEWS PRODUCTION ASSISTANT Start Date: 08/09/22 Status: Ordered Problem List Condition Confirmation Course Effective Dates Status Health Stat us Informant Pseudophakia of Confirmed Active both eyes History of eye Confirmed Active trauma Ocular hypertension Confirmed Active of left eye Old retinal Confirmed Active detachment of left eye Social History Social History Type Response Tobacco Tobacco Use: Never tobacco u ser. Sex Male Ophthalmology Outpatient Note Shabbir Wyman OD: MODIFY Shabbir Wyman OD: MODIFY Angela Murillo [employer] L[employer]CH MONITOR: MODIFY, MODIFY Kathie Mauricio: MODIFY Event Display: Ophthalmology Office Clinic Note Authored Date: LYLY ARANDA JR :1960 Age:62 years Sex:Male Visit Date:08/16/2022 Chief Complaint Est. pt here for 7-10 day ocular HTN f/u OS. History of Present Illness Est. pt here for 7-10 day IOP & check eye follow up. Pt. states that OS has been okay for him. Pt. states that he feels like he OU is getting better now that is he taking Combigan BID OS. Pt. states that his OD has not been bothering him. Pt. denies having any pain, itchiness or dryness. Pt. states that his OU has been watery for him. No other vision complaints at this time. ?? Denies new floaters, flashes of light ?? Mental Status:??alert & oriented x3, appropriate mood & affect Review of Systems Constitutional ROS: Within normal limits HEENT ROS: Other: Ocular HTN OS, old retinal detachment OS, h/o eye trauma, pseudophakia OU Respiratory ROS: Within normal limits Cardiovascular ROS: Within normal limits GI ROS: Within normal limits ROS: Within normal limits Dion/Lymph ROS: Within normal limits Endocrine ROS: Within normal limits Immunologic ROS: Within normal limits Musculoskeletal ROS: Within normal limits Integumentary ROS: Within normal limits Neuro ROS: Within normal limits Psychiatric ROS: Within normal limits Problem List/Past Medical History Ongoing History of eye trauma 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 Tobacco Tobacco Use: Never tobacco user. Physical Exam Ophthalmology Measurements Visual Acuity 08/16/2022 15:38 NEWS PRODUCTION ASSISTANT sc cc cCL ph Low Vision TestOD 20/25 OS 20/25-2 sc near cc near cCL near Testing AtOD OS Distance Correction Without Correction Near Correction Comments: Pupil Measurements 08/16/2022 15:38 NEWS PRODUCTION ASSISTANT Are Pupils Equal? Yes In Dark In Light Diameter RAPD Shape Diameter RAPD ShapeOD 3.0 mm Not present Round OS 3.0 mm Not present Round Comments: Motility 08/16/2022 15:38 NEWS PRODUCTION ASSISTANT Ocular Motility: OD OS SR IO IO SR LR MR MR LR IR SO SO IR Comments: FROM OU no pain or diplopia with eye movement Tonometry 08/16/2022 Time of Test 15:38:00 OD 15 OS 21 IOP Method Tonopen Comments 95% ANW ?? I,??Kathie Mauricio,??Optometry Techncian, am scribing for, and in the presence of, Dr. Wyman.?? I, Dr. Shabbir Wyman, personally performed the service documented, as scribed by Kathie Mauricio??in my presence, and authenticate that the documentation [...] PCIOL ? Posterior Segment ?View:?90D lens / undilated views OU?Right Eye ??Left Eye ??Vitreous: ??syneresis ??syneresis ??Optic Nerve: ??[place], distinct ??[place], distinct ??Cup/Disc Ratio: ??0.15/0.15 ??0.3/0.3 ??Vessels: ??wnl ??wnl ??Macula: ??ERM ??ERM ??Periphery: ??Not viewed ??not viewed ? Assessment/Plan 1.??Ocular hypertension of left eye??H40.052 H/o ocular HTN OS. IOP improved with use of Combigan BID OS. Patient ed on findings. CPM. Patient instructed to follow-up with his managing eyecare providers in [place]. Voiced understanding. RTC PRN. ?? 2.??History of eye trauma??Z87.828 see H40.052 ?? 3.??Pseudophakia of both eyes??Z96.1 PCIOL OU. Condition stable. Patient ed on findings. Monitor. ? Return to Clinic: RTC PRN. ? I, Angela Murillo, Optometry Director Of Neurology, ??am scribing for, ??and in the presence of, Dr. Wyman.?? I, Dr. Shabbir Wyman, personally performed the service documented, as scribed by Angela Murillo, Optometry Director Of Neurology, in my presence, and authenticate that the documentation accurately represents these services and the decision I made. Kathie Mauricio Electronically Signed on 08/16/22 06:31 PM Shabbir Wyman OD
--- NOTE | 2022-08-31 16:08 | ED.GENADULT ---
HPI - General Adult General Chief complaint: High Blood Pressure Stated complaint: High BP Time Seen by Provider: 08/31/22 14:58 History of Present Illness HPI narrative: 62-year-old man presenting to the emergency department with concern of elevated blood pressures. Noted blood pressures in the 150s systolic around the time of a stress test; I think this may have actually been an echocardiogram done for heart murmur. Does mention that he and his doctor think that he has white coat hypertension. 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 Following this echocardiogram his sister's asked him whether not he had taken alprazolam from his mother. Mother apparently accused him. He adamantly denies this noting he has his own anyway. Subsequent blood pressure readings as well today were higher in the 170s systolic. Did not have any chest pain or nausea. [place] he had some blurriness of vision. Did take an alprazolam which did not seem to change much. He is presenting though within the hour of taking it. He has been taking zolpidem now having weaned himself off generally from alprazolam. Wondering if zolpidem might be contributing to these feelings or elevated blood pressures. Does have a history of anxiety and PTSD as well as excessive alcohol consumption but notes that at this point does not drink more than 3 beers at a setting and that does not occur more than twice a month. Some degree of blindness in his left eye. Apparently had retinal detachment as well as some degree of a enlarged pupil requiring surgery. Describes relatively recent significant efforts at exercise not demonstrating intolerance. Reviewing results of the echocardiogram which Mr. Nesbitt was able to bring up in [facility], reveals similar findings to prior. Bicuspid aortic valve with [id number] regurgitation. Ejection fraction of 60-65% and no chamber abnormalities. Related Data Home Medications Medication Instructions Recorded Confirmed alprazolam 0.5 mg tablet mg 05/09/22 aspirin 81 mg chewable tablet 05/09/22 atorvastatin 10 mg tablet mg 05/09/22 eszopiclone 1 mg tablet mg 05/09/22 losartan 50 mg-hydrochlorothiazide tab 05/09/22 12.5 mg tablet olanzapine 2.5 mg tablet mg 05/09/22 suvorexant 5 mg tablet (Belsomra) mg PO 05/09/22 venlafaxine 37.5 mg tablet mg 05/09/22 zolpidem 10 mg tablet mg 05/09/22 Allergies Allergy/AdvReac Type Severity Reaction Status Date / Time fluoxetine [From Prozac] Allergy Severe suicidal Verified 06/21/22 22:58 prednisone Allergy Severe suicidal, Verified 06/21/22 22:58 agitation lisinopril Allergy Intermediate joint Verified 06/21/22 22:58 pain, weakness Sulfa (Sulfonamide Allergy Mild Hives Verified 06/21/22 22:58 Antibiotics) Review of Systems Status of ROS: Reports: 10 or more systems reviewed and unremarkable except as noted in History and below [facility] Medical History Alcohol use disorder, moderate, in sustained remission Bicuspid aortic valve Bilateral cataracts Blindness of one eye Essential hypertension History of attention deficit disorder History of personality disorder History of posttraumatic stress disorder (PTSD) History of TIA (transient ischemic attack) Hyperlipidemia Mitral valve disease Murmur Sleep apnea Social anxiety disorder Surgical History History of arthroscopy of left shoulder History of cataract removal with insertion of prosthetic lens History of tonsillectomy Social History Smoking Status: Former smoker Do you use any of these nicotine containing products: None Second hand tobacco smoke exposure: No How often do you have a drink containing alcohol: monthly or less AUDIT-C Alcohol total score: 1 Non-prescribed substance use: denies use Exam Narrative: Exam Narrative: Pleasantly talkative. Mildly anxious. Otherwise without notable distress. Breathing easily. Head is atraumatic. Eyes with an irregular left pupil responds normally to light and accommodation. There is also some flattening of the left iris laterally. Apparently these are chronic changes. Cranial nerves 2-12 otherwise appear to be intact. Neck is supple with strong and equal carotid upstroke. There are bruits bilaterally. Heart is with a regular rhythm with 2/6 systolic murmur, ejection murmur, loudest at the right sternal border. Lungs are clear. Moving all extremities without difficulty. Appears to have intact sensation. No extremity edema. Const: Vital Signs, click to edit/add: Vital Signs - 24 hr 08/31/22 14:55 08/31/22 15:09 08/31/22 15:10 Temperature 96.6 F L Pulse Rate 63 64 Pulse Rate [Left P ulse Oximeter] 62 Blood Pressure 176/89 H Blood Pressure [Ri ght Upper Arm] 186/83 H Pulse Oximetry 99 99 99 Oxygen Delivery Me thod Room Air 08/31/22 15:30 08/31/22 15:32 08/31/22 15:33 Temperature Pulse Rate 71 61 58 L Pulse Rate [Left P ulse Oximeter] Blood Pressure 171/87 H Blood Pressure [Ri ght Upper Arm] Pulse Oximetry 98 98 98 Oxygen Delivery Me thod Documenting provider has reviewed patient's vital signs: yes Course Vital Signs Vital signs: Initial Vital Signs Temperature 96.6 F L 08/31/22 14:55 Temperature Source Temporal Artery Scan 08/31/22 14:55 Pulse Rate 62 08/31/22 14:55 Blood Pressure 186/83 H 08/31/22 14:55 Blood Pressure Mean 117 08/31/22 14:55 Blood Pressure Position Sitting 08/31/22 14:55 Pulse Oximetry 99 08/31/22 14:55 Oxygen Delivery Method 08/31/22 14:55 Vital Signs Temperature 96.6 F L 08/31/22 14:55 Pulse Rate 62 08/31/22 14:55 Blood Pressure 186/83 H 08/31/22 14:55 Pulse Oximetry 99 08/31/22 14:55 Oxygen Delivery Method 08/31/22 14:55 Temperature 96.6 F L 08/31/22 14:55 Pulse Rate 58 L 08/31/22 15:33 Blood Pressure 171/87 H 08/31/22 15:32 Pulse Oximetry 98 08/31/22 15:33 Oxygen Delivery Method 08/31/22 14:55 Medical Decision Making MDM Narrative Medical decision making narrative: Did do an EKG. This is reviewed by me shows normal sinus rhythm without evidence acute ischemic changes. Rate of 70. No events on monitor during time in the ER. Blood pressures did improve a little bit during time in the emergency department. I do think that majority of his symptoms here today can be explained by elevation of anxiety. I do not believe that workup will result in any particular findings. Not sure that he is reacting to Ambien necessarily. Certainly could cause elevation of anxiety over time, and then increased blood pressures also. Discharge Plan Discharge Clinical Impression: Other social stressor, Anxiety, High blood pressure Patient Disposition: Home, Self-Care Condition: Improved Additional Instructions: I think this elevated blood pressure is a temporary matter. I think you should try to let this go over the weekend and reassess next week as discussed with a measurement or two every other day after a period of rest. Follow-up with 1-2 weeks of blood pressure readings if they still seem to be elevated. Return for new and focal weakness, loss of sensation, increasing persistent chest pain, shortness of breath. Reassuring as your degree of exercise tolerance. Please enjoy the rest of the holidays. Plan something fun to do with your family. Prescriptions: No Action atorvastatin 10 mg tablet Hold Instructions: Choice olanzapine 2.5 mg tablet Hold Instructions: Order Change alprazolam 0.5 mg tablet venlafaxine 37.5 mg tablet Hold Instructions: Choice aspirin 81 mg tablet,chewable Hold Instructions: Order Change zolpidem 10 mg tablet losartan-hydrochlorothiazide 50-12.5 mg tablet Hold Instructions: Order Change eszopiclone 1 mg tablet Hold Instructions: Order Change Belsomra 5 mg tablet PO Hold Instructions: Order Change Label Comments: TAKE 1 TABLET BY MOUTH AT BEDTIME Follow Up/Referrals: Breezy Glynn MD [Primary Care Provider] - Stand Alone Forms: [employer] Info Instructions
== END 2022-08-31 16:10 | disposition home or self-care (01) ==
PROVIDERS: Emergency Provider Family Medicine; PCP Family Medicine
DX: F43.9 Reaction to severe stress, unspecified (principal); F41.9 Anxiety disorder, unspecified; I10 Essential (primary) hypertension
CPT/HCPCS: 93005; 99283; 99284

== ENCOUNTER 2023-07-17 17:06 | Emergency (ER) | payer OTHER, MEDICAID, SELFPAY ==
[2023-07-17] VITALS (7 sets, daily range): BP systolic 143–165; BP diastolic 80–93; PULSE 66–76; RESP 16–20; TEMP 37.5; O2SAT 96–99; BMI 27.7
--- NOTE | 2023-07-17 17:23 | ED_ITS ---
HPI - General Adult General Chief complaint: Unspecified Complaint, Adult Stated complaint: Blurred vision, bp high, history of stroke Time Seen by Provider: 07/17/23 17:15 History of Present Illness HPI narrative: This 63-year-old male comes in reporting brief episodes of buzzing feeling in his right upper extremity. This is been happening over the past week and half for so. He was seen recently in a different facility and diagnosed with a sinusitis and has been taking an antibiotic. He does not report any unilateral weakness. He does not have a headache. He does have some brief visual changes typical of scintillating scotoma. He states that he has insomnia and has tried several medications and currently is taking Ambien which she believes is causing some adverse effects and prefers to get off of it. Related Data Home Medications Medication Instructions Recorded Confirmed zolpidem 10 mg tablet 10 mg PO PRN 05/09/22 07/17/23 cholecalciferol (vitamin D3) 125 125 mcg PO DAILY 02/11/23 07/17/23 mcg (5,000 unit) tablet amoxicillin 875 mg-potassium 1 tab PO Q12H 07/17/23 07/17/23 clavulanate 125 mg tablet Allergies Allergy/AdvReac Type Severity Reaction Status Date / Time fluoxetine [From Prozac] Allergy Severe suicidal Verified 07/17/23 17:18 prednisone Allergy Severe suicidal, Verified 07/17/23 17:18 agitation lisinopril Allergy Intermediate joint Verified 07/17/23 17:18 pain, weakness azelastine Allergy Mild burned nose Verified 07/17/23 17:18 Sulfa (Sulfonamide Allergy Mild Hives Verified 07/17/23 17:18 Antibiotics) Review of Systems Status of ROS: Reports: 10 or more systems reviewed and unremarkable except as noted in History and below Narrative: Constitutional: No fevers, no weight gain or loss. Eyes: No discharge. No vision changes. HENT: No sore throat, no ear pain. Sinus congestion. Cardiovascular: No chest pain, no palpitations. Respiratory: No shortness of breath, no wheezes, no cough. Gastrointestinal: No abdominal pain, no vomiting, no diarrhea. Genitourinary: No dysuria, no hematuria. Musculoskeletal: Normal range of motion. Skin: No rashes, no pruritis. Neurological: No dizziness, weakness, speech change. Endo/Heme/Allergies: No bruising or bleeding. No polydipsia. Pysch: no suicidality, no anxiety, no insomnia. All other systems reviewed and are negative. [facility] Medical History Bicuspid aortic valve ?Q23.1 - Congenital insufficiency of aortic valve (ICD-10) Mitral valve disease ?I05.9 - Rheumatic mitral valve disease, unspecified (ICD-10) Essential hypertension ?I10 - Essential (primary) hypertension (ICD-10) History of posttraumatic stress disorder (PTSD) ?Z86.59 - Personal history of other mental and behavioral disorders (ICD-10) Hyperlipidemia ?E78.5 - Hyperlipidemia, unspecified (ICD-10) Bilateral cataracts ?H26.9 - Unspecified cataract (ICD-10) Blindness of one eye ?H54.40 - Blindness, one eye, unspecified eye (ICD-10) History of attention deficit disorder ?Z86.59 - Personal history of other mental and behavioral disorders (ICD-10) Sleep apnea ?G47.30 - Sleep apnea, unspecified (ICD-10) Murmur ?R01.1 - Cardiac murmur, unspecified (ICD-10) History of personality disorder ?Z86.59 - Personal history of other mental and behavioral disorders (ICD-10) Alcohol use disorder, moderate, in sustained remission ?F10.21 - Alcohol dependence, in remission (ICD-10) Social anxiety disorder ?F40.10 - Social phobia, unspecified (ICD-10) History of TIA (transient ischemic attack) ?Z86.73 - Personal history of transient ischemic attack (TIA), and cerebral infarction without residual deficits (ICD-10) Surgical History History of tonsillectomy ?Z90.89 - Acquired absence of other organs (ICD-10) History of cataract removal with insertion of prosthetic lens ?Z98.49 - Cataract extraction status, unspecified eye (ICD-10) ?Z96.1 - Presence of intraocular lens (ICD-10) History of arthroscopy of left shoulder ?Z98.890 - Other specified postprocedural states (ICD-10) Social History Smoking Status: Former smoker Do you use any of these nicotine containing products: None Second hand tobacco smoke exposure: No How often do you have a drink containing alcohol: monthly or less AUDIT-C Alcohol total score: 1 Non-prescribed substance use: denies use service: No Exam Narrative: Exam Narrative: Constitutional: Well-developed, well-nourished, no acute distress. HEENT: Normocephalic, atraumatic. Neck: Normal range of motion. Nontender. Supple. Heart: Regular. No murmurs. Normal rate. Intact distal pulses. Lungs: Clear to auscultation. No chest discomfort. No wheezes, rhonchi, or rales. Abdomen: Normal bowel sounds. Nontender. No rebound tenderness. Genitalia: Deferred. Back: No midline tenderness. Normal range of motion. Extremities: Normal range of motion. No injury. Skin: Intact. No rash. Warm. No erythema or pallor. Neurologic: No altered sensation. No weakness. Alert and oriented. Psychiatric: No suicidality. No anxiety or depression. No insomnia. Nursing notes and vitals signs are reviewed. Const: Vital Signs, click to edit/add: Vital Signs - 24 hr 07/17/23 17:21 Temperature 99.5 F Pulse Rate [Pulse Oximeter] 76 Respiratory Rate 16 Blood Pressure [Le ft Upper Arm] 165/85 H Pulse Oximetry 99 Oxygen Delivery Me thod Room Air Course Vital Signs Vital signs: Initial Vital Signs Temperature 99.5 F 07/17/23 17:21 Temperature Source Temporal Artery Scan 07/17/23 17:21 Pulse Rate 76 07/17/23 17:21 Pulse Rhythm Regular 07/17/23 17:21 Pulse Strength 3+ Normal 07/17/23 17:21 Respiratory Rate 16 07/17/23 17:21 Blood Pressure 165/85 H 07/17/23 17:21 Blood Pressure Mean 111 H 07/17/23 17:21 Blood Pressure Position Semi-Fowlers 07/17/23 17:21 Pulse Oximetry 99 07/17/23 17:21 Oxygen Delivery Method Room Air 07/17/23 17:21 Vital Signs Temperature 99.5 F 07/17/23 17:21 Pulse Rate 76 07/17/23 17:21 Respiratory Rate 16 07/17/23 17:21 Blood Pressure 165/85 H 07/17/23 17:21 Pulse Oximetry 99 07/17/23 17:21 Oxygen Delivery Method Room Air 07/17/23 17:21 Temperature 99.5 F 07/17/23 17:21 Pulse Rate 76 07/17/23 17:21 Respiratory Rate 16 07/17/23 17:21 Blood Pressure 165/85 H 07/17/23 17:21 Pulse Oximetry 99 07/17/23 17:21 Oxygen Delivery Method Room Air 07/17/23 17:21 Medical Decision Making MDM Narrative Medical decision making narrative: This patient comes in with concern about some brief episodes of altered sensation in his right upper extremity. These are short-lived and do not include any other symptoms such as weakness. He is not showing any signs of stroke or unilateral neurologic deficits. In his recent visit at a different facility he did have CT scan of his head and labs were acquired. These returned with normal results. I did discuss the role of repeating such tests and these were declined in a process of shared decision making. The patient states that he does have anxiety and this will often amplify his symptoms. The patient's exam is completely normal. He is okay to be discharged home to continue current plans. He has follow-up arrangements with his primary physician in the next few weeks. ECG Data Interpretation: Normal sinus rhythm. Rate is 70 beats per minute. There are no ST or T-wave abnormalities. Discharge Plan Discharge Clinical Impression: Arm paresthesia, right Patient Disposition: Home, Self-Care Condition: Unchanged Additional Instructions: Continue current plans. Follow up with MD as scheduled or return if worsening. Prescriptions: No Action amoxicillin-pot clavulanate 875-125 mg tablet 1 tab PO Q12H zolpidem 10 mg tablet 10 mg PO PRN cholecalciferol (vitamin D3) 125 mcg (5,000 unit) tablet 125 mcg PO DAILY Follow Up/Referrals: Breezy Glynn MD [Primary Care Provider] - Stand Alone Forms: [employer] Info Instructions
--- OUTSIDE RECORDS SUMMARY | 2023-07-17 18:32 | XMS_ITS | Patient Health Record ---
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
== END 2023-07-17 18:45 | disposition home or self-care (01) ==
LOC: ED 18:29
PROVIDERS: Emergency Provider Emergency Medicine Emergency Medical Services; PCP Family Medicine
DX: R20.2 Paresthesia of skin (principal)
CPT/HCPCS: 93005; 99283; 99284

== ENCOUNTER 2024-05-31 18:54 | Emergency (ER) | payer MEDICARE, MEDICAID, SELFPAY ==
[2024-05-31 19:01] VITALS: BP 160/81; PULSE 85; RESP 16; TEMP 36.6; O2SAT 97; BMI 26.8
--- NOTE | 2024-05-31 19:09 | ED.SKABFB ---
HPI - Skin/Abscess/Foreign Bdy General Time Seen by Provider: 19:09 Date Seen: 05/31/24 Chief complaint: Skin/Abscess/Foreign Body Stated complaint: Glass in foot, leg cramps, has been atorvasatin Time Seen by Provider: 05/31/24 19:09 Source: patient and RN notes reviewed Mode of arrival: ambulatory Limitations: no limitations History of Present Illness HPI narrative: Patient is a very pleasant 64-year-old male [employer] with out -dated tetanus, currently on a statin who comes to the emergency room with complaints of foot pain, possible foreign body as well as muscle aches. Marco notes that he unfortunately stepped on some glass after mirror broke. He notes that he still has discomfort in this area especially when he curls his toes. He has not had fever or chills and there has not been any drainage or redness. Patient also notes that he has been on a statin and has had muscle aches. He states he tried to only take half of his tablet but he is still a dealing with muscle aches. He is a very active individual. Denies any problems with his kidneys. No fever or chills. Related Data Home Medications ?Medication ?Instructions ?Recorded ?Confirmed zolpidem 10 mg tablet 10 mg PO PRN 05/09/22 07/17/23 cholecalciferol (vitamin D3) 125 125 mcg PO DAILY 02/11/23 07/17/23 mcg (5,000 unit) tablet amoxicillin 875 mg-potassium 1 tab PO Q12H 07/17/23 07/17/23 clavulanate 125 mg tablet Allergies Allergy/AdvReac Type Severity Reaction Status Date / Time fluoxetine [From Prozac] Allergy Severe suicidal Verified 07/17/23 17:18 prednisone Allergy Severe suicidal, Verified 07/17/23 17:18 agitation lisinopril Allergy Intermediate joint Verified 07/17/23 17:18 pain, weakness azelastine Allergy Mild burned nose Verified 07/17/23 17:18 Sulfa (Sulfonamide Allergy Mild Hives Verified 07/17/23 17:18 Antibiotics) Review of Systems Status of ROS: Reports: 6 or more systems reviewed and unremarkable except as noted in History and below [facility] Medical History Bicuspid aortic valve ?Q23.1 - Congenital insufficiency of aortic valve (ICD-10) Mitral valve disease ?I05.9 - Rheumatic mitral valve disease, unspecified (ICD-10) Essential hypertension ?I10 - Essential (primary) hypertension (ICD-10) History of posttraumatic stress disorder (PTSD) ?Z86.59 - Personal history of other mental and behavioral disorders (ICD-10) Hyperlipidemia ?E78.5 - Hyperlipidemia, unspecified (ICD-10) Bilateral cataracts ?H26.9 - Unspecified cataract (ICD-10) Blindness of one eye ?H54.40 - Blindness, one eye, unspecified eye (ICD-10) History of attention deficit disorder ?Z86.59 - Personal history of other mental and behavioral disorders (ICD-10) Sleep apnea ?G47.30 - Sleep apnea, unspecified (ICD-10) Murmur ?R01.1 - Cardiac murmur, unspecified (ICD-10) History of personality disorder ?Z86.59 - Personal history of other mental and behavioral disorders (ICD-10) Alcohol use disorder, moderate, in sustained remission ?F10.21 - Alcohol dependence, in remission (ICD-10) Social anxiety disorder ?F40.10 - Social phobia, unspecified (ICD-10) History of TIA (transient ischemic attack) ?Z86.73 - Personal history of transient ischemic attack (TIA), and cerebral infarction without residual deficits (ICD-10) Surgical History History of tonsillectomy ?Z90.89 - Acquired absence of other organs (ICD-10) History of cataract removal with insertion of prosthetic lens ?Z98.49 - Cataract extraction status, unspecified eye (ICD-10) ?Z96.1 - Presence of intraocular lens (ICD-10) History of arthroscopy of left shoulder ?Z98.890 - Other specified postprocedural states (ICD-10) Social History Smoking Status: Former smoker Do you use any of these nicotine containing products: None Second hand tobacco smoke exposure: No How often do you have a drink containing alcohol: monthly or less AUDIT-C Alcohol total score: 1 Non-prescribed substance use: denies use service: No Exam Narrative: Exam Narrative: Patient is alert and oriented. No acute distress. No respiratory distress. Mentation is normal. Examination of his right foot, shows a very tiny area at the base between the 2nd and 3rd metatarsals. There is no evidence of a foreign body but more of a healing wound. I do palpate this area and there is no fluctuance. There is no erythema or drainage. Const: Vital Signs, click to edit/add: Vital Signs - 24 hr 05/31/24 19:01 Temperature 97.8 F Pulse Rate [Left P ulse Oximeter] 85 Respiratory Rate 16 Blood Pressure [Ri ght Upper Arm] 160/81 H Pulse Oximetry 97 Oxygen Delivery Me thod Room Air Documenting provider has reviewed patient's vital signs: yes Course Course ED Course: I do suggest x-ray of the foot to detect foreign body. A piece of mere should be visible on x-ray. Patient is in agreement. Will also check a CK and comprehensive panel given his increased body aches. Reevaluation(s) Reevaluation #1: CK has come back elevated at 2 3 3. No evidence of foreign body on x-ray. Vital Signs Vital signs: Initial Vital Signs Temperature 97.8 F 05/31/24 19:01 Temperature Source Temporal Artery Scan 05/31/24 19:01 Pulse Rate 85 05/31/24 19:01 Pulse Rhythm Regular 05/31/24 19:01 Respiratory Rate 16 05/31/24 19:01 Blood Pressure 160/81 H 05/31/24 19:01 Blood Pressure Mean 107 H 05/31/24 19:01 Blood Pressure Position Sitting 05/31/24 19:01 Pulse Oximetry 97 05/31/24 19:01 Oxygen Delivery Method Room Air 05/31/24 19:01 Vital Signs Temperature 97.8 F 05/31/24 19:01 Pulse Rate 85 05/31/24 19:01 Respiratory Rate 16 05/31/24 19:01 Blood Pressure 160/81 H 05/31/24 19:01 Pulse Oximetry 97 05/31/24 19:01 Oxygen Delivery Method Room Air 05/31/24 19:01 Temperature 97.8 F 05/31/24 19:01 Pulse Rate 85 05/31/24 19:01 Respiratory Rate 16 05/31/24 19:01 Blood Pressure 160/81 H 05/31/24 19:01 Pulse Oximetry 97 05/31/24 19:01 Oxygen Delivery Method Room Air 05/31/24 19:01 MDM - Skin/Abscess/Foreign Bdy MDM Narrative Medical decision making narrative: 1. Right foot puncture wound-at this time no evidence of a foreign body. Given the lack of erythema swelling I do not feel comfortable with any sort of excision or surgical wound exploration. I would continue to monitor at this time. If the discomfort becomes worse or he has evidence of an infection would then consider MRI and exploration. Did discuss tetanus update with this gentleman who declines at this time. He is aware of the morbidity and mortality that may be associated with locked jaw or tetanus illness. 2. Muscle aches-CK is elevated at 233 with no recent trauma to explain this. Will have patient discontinue his statin at this time. I would like him to have a wound with his physician regarding alternative lipid control. 3. Disposition-patient also questions me about amitriptyline and I do defer him to his primary MD. would like him to return for increasing redness of the foot signs of infection and as needed. Medical Records Attestation: I reviewed the patient's medical records. Lab Data Attestation: I reviewed the patient's lab results. Labs: Lab Results 05/31/24 Range/Units 19:33 Sodium 136 (135-149) mmol/L Potassium 3.8 (3.6-5.1) mmol/L Chloride 101 (96-114) mmol/L Carbon Dioxide 25 (20-32) mmol/L Anion Gap 10 (7-15) mEq/L BUN 25 (7-30) mg/dL Creatinine 1.0 (0.5-1.5) mg/dL Estimated Creat Clear 71.25 Estimated GFR 84 ml/min Glucose 186 H (60-115) mg/dL Calcium 9.7 (8.4-10.6) mg/dL Total Bilirubin 0.5 (0.1-1.5) mg/dL AST 31 (12-35) U/L ALT 38 (4-50) U/L Alkaline Phosphatase 52 (40-150) U/L Total Creatine Kinase 233 H (54-186) U/L Total Protein 7.6 (6.0-8.3) g/dL Albumin 4.8 (3.3-5.0) g/dL Imaging Data Right foot x-ray: Attestation: I have reviewed the pertinent imaging results. Radiologist's impression: Bones: Alignment is normal. No fractures or bone lesions. Joint spaces: Unremarkable. Soft tissues: Unremarkable. No radiopaque foreign body identified. Impression: No radiopaque foreign body identified. No evidence of an acute bony abnormality. Discharge Plan Discharge Clinical Impression: Puncture wound, Muscle ache Patient Disposition: Home, Self-Care Condition: Unchanged Additional Instructions: 1. There is no evidence of foreign body on your x-ray today. However, I suggest that we continue to monitor this area. If you continue to have pain you may need MRI to identify foreign body. Please check with your regular doctor if this would occur. 2. Your creatinine kinase is elevated at 233. A copy of your results will be given to you today to hand carry to your regular doctor. In the meantime discontinue your statin. 3. Return to the ER as needed. Prescriptions: No Action amoxicillin-pot clavulanate 875-125 mg tablet 1 tab PO Q12H zolpidem 10 mg tablet 10 mg PO PRN cholecalciferol (vitamin D3) 125 mcg (5,000 unit) tablet 125 mcg PO DAILY Follow Up/Referrals: Breezy Glynn MD [Primary Care Provider] - Stand Alone Forms: [employer] Info Instructions
--- NOTE | 2024-05-31 19:17 | CRLHL7_ITS ---
For Patients: As a result of the Cures Act, medical imaging exams and procedure reports are released immediately into your electronic medical record. You may view this report before your referring provider. If you have questions, please contact your health care provider. Indication: Possible foreign body dorsum foot between 2nd and 3rd. Technique: Right foot 2 views. Comparison: None. Findings: Bones: Alignment is normal. No fractures or bone lesions. Joint spaces: Unremarkable. Soft tissues: Unremarkable. No radiopaque foreign body identified. Impression: No radiopaque foreign body identified. No evidence of an acute bony abnormality. Dictated by Piter Linn MD @ 05/31/2024 7:56:44 PM (Electronically Signed)
[2024-05-31 19:52] LABS: Albumin* 4.8 g/dL (3.3-5.0); Chloride* 101 mmol/L (96-114); Potassium* 3.8 mmol/L (3.6-5.1); Sodium* 136 mmol/L (135-149)
[2024-05-31 19:54] LABS: Est. Creatinine Clearance* 71.25; Estimated Glomerular Filt Rate 84 ml/min
[2024-05-31 19:55] LABS: Alanine Aminotransferase* 38 U/L (4-50); Alkaline Phosphatase* 52 U/L (40-150); Anion Gap 10 mEq/L (7-15); Aspartate Amino Transferase* 31 U/L (12-35); Bilirubin Total* 0.5 mg/dL (0.1-1.5); Blood Urea Nitrogen* 25 mg/dL (7-30); Calcium* 9.7 mg/dL (8.4-10.6); Carbon Dioxide* 25 mmol/L (20-32); Creatine Kinase* 233 U/L (54-186); Glucose* 186 mg/dL (60-115); Total Protein* 7.6 g/dL (6.0-8.3)
== END 2024-05-31 20:20 | disposition home or self-care (01) ==
PROVIDERS: Emergency Provider Family Medicine; PCP Family Medicine
DX: S91.331A Puncture wound without foreign body, right foot, initial encounter (principal); M79.10 Myalgia, unspecified site
CPT/HCPCS: 36415; 73620; 80053; 82550; 99283; 99284

== ENCOUNTER 2024-07-13 17:18 | Emergency (ER) | payer MEDICARE, MEDICAID, SELFPAY ==
[2024-07-13 17:20] VITALS: BP 152/83; PULSE 88; RESP 18; TEMP 36.8; O2SAT 97; BMI 26.5
--- NOTE | 2024-07-13 19:45 | ED.DIZZY ---
HPI - Dizziness General Chief Complaint: Dizziness/Vertigo Stated Complaint: dizzy, high BP Time Seen by Provider: 07/13/24 19:17 History of Present Illness HPI Narrative: This 64-year-old male comes in reporting some lightheadedness episodes today. He states that he feels the sometimes with exertion. He states that he is able to walk quite a bit every day and does do some running also. He recently started on metformin. He is also taking 2 antihypertensive medicines. He takes these in the morning. He does not report any chest pain, nausea, vomiting, shortness of breath, or diaphoresis. He also states that he is monitoring his carotid arteries which of shown on ultrasound test to be stenosed around 50-60% bilaterally. Related Data Home Medications ?Medication ?Instructions ?Recorded ?Confirmed zolpidem 10 mg tablet 10 mg PO PRN 05/09/22 07/17/23 cholecalciferol (vitamin D3) 125 125 mcg PO DAILY 02/11/23 07/17/23 mcg (5,000 unit) tablet amoxicillin 875 mg-potassium 1 tab PO Q12H 07/17/23 07/17/23 clavulanate 125 mg tablet amitriptyline 10 mg tablet 10 mg PO QPM 07/13/24 07/13/24 aspirin 81 mg chewable tablet 1 tab PO DAILY 07/13/24 07/13/24 brimonidine 0.2 %-timolol 0.5 % 1 drp ophthalmic (eye-left) BID 07/13/24 07/13/24 eye drops (Combigan) chlorthalidone 25 mg tablet PO 07/13/24 enalapril maleate 5 mg tablet mg PO 07/13/24 metformin 500 mg tablet,extended 500 mg PO DAILY 07/13/24 07/13/24 release 24 hr Allergies Allergy/AdvReac Type Severity Reaction Status Date / Time fluoxetine (From Prozac) Allergy Severe suicidal Verified 07/17/23 17:18 prednisone Allergy Severe suicidal, Verified 07/17/23 17:18 agitation lisinopril Allergy Intermediate joint Verified 07/17/23 17:18 pain, weakness azelastine Allergy Mild burned nose Verified 07/17/23 17:18 Sulfa (Sulfonamide Allergy Mild Hives Verified 07/17/23 17:18 Antibiotics) Review of Systems Status of ROS: Reports: 10 or more systems reviewed and unremarkable except as noted in History and below Narrative: Constitutional: No fevers, no weight gain or loss. Eyes: No discharge. No vision changes. HENT: No congestion, no sore throat, no ear pain. Cardiovascular: No chest pain, no palpitations. Respiratory: No shortness of breath, no wheezes, no cough. Gastrointestinal: No abdominal pain, no vomiting, no diarrhea. Genitourinary: No dysuria, no hematuria. Musculoskeletal: Normal range of motion. Skin: No rashes, no pruritis. Neurological: No dizziness, weakness, sensory change, speech change. Endo/Heme/Allergies: No bruising or bleeding. No polydipsia. Pysch: no suicidality, no anxiety, no insomnia. All other systems reviewed and are negative. [facility] Medical History Bicuspid aortic valve ?Q23.1 - Congenital insufficiency of aortic valve (ICD-10) Mitral valve disease ?I05.9 - Rheumatic mitral valve disease, unspecified (ICD-10) Essential hypertension ?I10 - Essential (primary) hypertension (ICD-10) History of posttraumatic stress disorder (PTSD) ?Z86.59 - Personal history of other mental and behavioral disorders (ICD-10) Hyperlipidemia ?E78.5 - Hyperlipidemia, unspecified (ICD-10) Bilateral cataracts ?H26.9 - Unspecified cataract (ICD-10) Blindness of one eye ?H54.40 - Blindness, one eye, unspecified eye (ICD-10) History of attention deficit disorder ?Z86.59 - Personal history of other mental and behavioral disorders (ICD-10) Sleep apnea ?G47.30 - Sleep apnea, unspecified (ICD-10) Murmur ?R01.1 - Cardiac murmur, unspecified (ICD-10) History of personality disorder ?Z86.59 - Personal history of other mental and behavioral disorders (ICD-10) Alcohol use disorder, moderate, in sustained remission ?F10.21 - Alcohol dependence, in remission (ICD-10) Social anxiety disorder ?F40.10 - Social phobia, unspecified (ICD-10) History of TIA (transient ischemic attack) ?Z86.73 - Personal history of transient ischemic attack (TIA), and cerebral infarction without residual deficits (ICD-10) Surgical History History of tonsillectomy ?Z90.89 - Acquired absence of other organs (ICD-10) History of cataract removal with insertion of prosthetic lens ?Z98.49 - Cataract extraction status, unspecified eye (ICD-10) ?Z96.1 - Presence of intraocular lens (ICD-10) History of arthroscopy of left shoulder ?Z98.890 - Other specified postprocedural states (ICD-10) Social History Smoking Status: Former smoker Do you use any of these nicotine containing products: None Second hand tobacco smoke exposure: No How often do you have a drink containing alcohol: monthly or less AUDIT-C Alcohol total score: 1 Non-prescribed substance use: denies use service: No Exam Narrative: Exam Narrative: Constitutional: Well-developed, well-nourished, no acute distress. HEENT: Normocephalic, atraumatic. Neck: Normal range of motion. Nontender. Supple. Heart: Regular. No murmurs. Normal rate. Intact distal pulses. Lungs: Clear to auscultation. No chest discomfort. No wheezes, rhonchi, or rales. Abdomen: Normal bowel sounds. Nontender. No rebound tenderness. Genitalia: Deferred. Back: No midline tenderness. Normal range of motion. Extremities: Normal range of motion. No injury. Skin: Intact. No rash. Warm. No erythema or pallor. Neurologic: No altered sensation. No weakness. Alert and oriented. Psychiatric: No suicidality. No anxiety or depression. No insomnia. Nursing notes and vitals signs are reviewed. Const: Vital Signs, click to edit/add: Vital Signs - 24 hr 07/13/24 17:20 Temperature 98.2 F Pulse Rate [Pulse Oximeter] 88 Respiratory Rate 18 Blood Pressure [Ri ght Upper Arm] 152/83 H Pulse Oximetry 97 Oxygen Delivery Me thod Room Air Course Vital Signs Vital signs: Initial Vital Signs Temperature 98.2 F 07/13/24 17:20 Temperature Source Temporal Artery Scan 07/13/24 17:20 Pulse Rate 88 07/13/24 17:20 Pulse Rhythm Regular 07/13/24 17:20 Respiratory Rate 18 07/13/24 17:20 Blood Pressure 152/83 H 07/13/24 17:20 Blood Pressure Mean 106 H 07/13/24 17:20 Blood Pressure Position Sitting 07/13/24 17:20 Pulse Oximetry 97 07/13/24 17:20 Oxygen Delivery Method Room Air 07/13/24 17:20 Vital Signs Temperature 98.2 F 07/13/24 17:20 Pulse Rate 88 07/13/24 17:20 Respiratory Rate 18 07/13/24 17:20 Blood Pressure 152/83 H 07/13/24 17:20 Pulse Oximetry 97 07/13/24 17:20 Oxygen Delivery Method Room Air 07/13/24 17:20 Temperature 98.2 F 07/13/24 17:20 Pulse Rate 88 07/13/24 17:20 Respiratory Rate 18 07/13/24 17:20 Blood Pressure 152/83 H 07/13/24 17:20 Pulse Oximetry 97 07/13/24 17:20 Oxygen Delivery Method Room Air 07/13/24 17:20 MDM - Dizziness MDM Narrative Medical decision making narrative: This patient comes in reporting some episodes of lightheadedness. He does not report any other symptoms. He arrives here with normal vital signs and has normal exam. I did discuss lab and imaging options with the patient but had more time discussing his medications and possible adverse effects. He did recently start metformin but it does not seem so likely that this is causing his symptoms. He is taking 2 antihypertensive medications both in the morning and states that he often does not take food or drink till later in the day. I advised him to her pay attention to taking sufficient food and drink in the morning and recommended that he take 1 of the medicines for blood pressure in the evening and the other in the morning. In a process of shared decision making the patient did not prefer to have any labs or imaging done. He states that he had his blood checked a couple weeks ago with normal results. Discharge Plan Discharge Clinical Impression: Episodic lightheadedness Additional Instructions: Continue current medications. Okay to take 1 blood pressure pill in the morning and the other 1 in the evening. Follow-up with primary physician for ongoing management of medications. Return if worsening. Prescriptions: No Action amoxicillin-pot clavulanate 875-125 mg tablet 1 tab PO Q12H zolpidem 10 mg tablet 10 mg PO PRN cholecalciferol (vitamin D3) 125 mcg (5,000 unit) tablet 125 mcg PO DAILY enalapril maleate 5 mg tablet PO chlorthalidone 25 mg tablet PO amitriptyline 10 mg tablet 10 mg PO QPM aspirin 81 mg tablet,chewable 1 tab PO DAILY metformin 500 mg tablet extended release 24 hr 500 mg PO DAILY brimonidine-timolol [Combigan] 0.2-0.5 % drops 1 drp ophthalmic (eye-left) BID Follow Up/Referrals: Breezy Glynn MD [Primary Care Provider] - Stand Alone Forms: [employer] Info Instructions
--- OUTSIDE RECORDS SUMMARY | 2024-07-13 19:50 | XMS_ITS | Patient Health Record ---
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
--- OUTSIDE RECORDS SUMMARY | 2024-07-13 19:50 | XMS_ITS | Referral Summary ---
Author Organization [facility] Address [address] [place] [phone] Care Team Providers Care Bottle Line Worker Name Role Phone Elsewhere, Pcp Primary Care Provider Unavailabl e Source Comments Patient records contain information from all sites at [facility]. For routine questions regarding patient records, call [phone] during business hours, M-F 8:00 AM - 5:00 PM Central Time. Record requests for emergency care only can be directed to [phone] at any time.[facility] Encounters Date Type Department Care Team Description 07/03/2024 Orders Only Division of Pulmonary Medicine in [place], [place] [address] [place] [phone] [facility], Provider, Asthma Mild Intermittent (HCC) 06/26/2024 Clinical Communication Department of Family Medicine, [address] [place] [address] [place] [address] Elsewhere, Pcp 05/06/2024 Clinical Communication Department of Community Internal Medicine in [address] [phone] Elsewhere, Pcp PCP Elsewhere from Last 3 Months Allergies Active Allergy Reactions Criticality Noted Date Comments Aripiprazole Other (see comments) 05/07/2013 Had a sore throat and felt like he was going to pass out Azelastine Other (see comments) Low 06/22/2019 Fluoxetine Other (see comments) High 12/23/2013 [place] suicidal/agitated with one dose- wanted to jump out of the car [place] suicidal/agitated with one dose Lisinopril Other (see comments) High 01/06/2018 Joint pain fatigue weakness - even a light ladder Joint pain fatigue weakness - even a light ladder Morphine Nausea Only 03/23/2020 Prednisone Other (see comments) High 10/20/2014 Suicidal; too agitated Sulfa (Sulfonamide Antibiotics) Hives only, no other systemic symptoms 09/27/2019 Tizanidine Other (see comments) 12/28/2019 Legs gave out from underneath him. Won't take again. Medications zolpidem (AMBIEN) 5 mg tablet Take 5 mg by mouth at bedtime as needed for sleep. Active atenoloL (TENORMIN) 25 mg tablet Take 1 tablet (25 mg total) by mouth daily for 10 days. 10 tablet 07/11/2023 Active Active Problems Problem Noted Date Diagnosed Date Attention Deficit Hyperactive Disorder Blindness One Eye 05/05/2024 Overview (05/05/2024): left eye - due to trauma in 1965 Cataract 05/05/2024 Insomnia 05/05/2024 Murmur Heart 05/05/2024 Overview (05/05/2024): Echo from 08/2008 showed ? bicuspid aortic valve Sleep Apnea 05/05/2024 Overview (05/05/2024): pt states not a problem anymore Stenosis Aortic Valve Acquired 05/05/2024 Overview (05/05/2024): Echocardiogram August 2023: The aortic valve is calcified, moderate stenosis and mild to moderate regurgitation Diabetes Mellitus Type 2 12/16/2023 Asthma Mild Intermittent 08/20/2023 Chronic Kidney Disease Stage 2 Glomerular Filtration Rate 60 To 89 11/26/2022 Nonrheumatic Aortic Valve Disorder Unspecified 0 09/21/2022 Anxiety Generalized Disorder 10/09/2014 Overview (05/05/2024): Previously prescribed and tried psychiatric meds: prozac Paxil zoloft wellbutrin Celexa, Effexor, Cymbalta, remeron Depakote, [place], seroquel zyprexa Depression/Jane/Bipolar NOS 05/21/2014 Overview (01/22/2017): Disorder Mood NOS Hypertension 05/21/2014 Overview (01/22/2017): Hypertension (HTN) NOS Hyperlipidemia 10/20/2009 Overview (05/05/2024): Intolerable of simvastatin (although he had done well on the lipitor in the past) Zetia is prescribed today to check labs in 3 months. Social History Tobacco Use Types Packs/Day Years Used Date Smoking Tobacco: Unknown Tobacco Cessation:Counseling Given: Not Answered Alcohol Use Standard Drinks/Week Comments Not Currently 0 (1 standard drink = 0.6 oz pur e alcohol) Nutrition Answer Date Recorded Nutrition: EVOO Fat Source Unknown 09/18 Nutrition: Servings of Fruits/Vegetables per Day Not on file 09/18/2022 Dental Answer Date Recorded Dental: Regular Dentist Unknown 09/18/19 Sex and Gender Information Value Date Recorded Sex Assigned at Not on file Legal Sex Male 4:01 PM DBA Gender Identity Not on file Sexual Orientation Not on file Last Filed Vital Signs Vital Sign Reading Time Taken Comments Blood Pressure 165/88 07/11/2023 4:54 PM DBA Pulse 65 07/11/2023 4:54 PM DBA Temperature 36.8 ??C (98.2 ??F) 07/11/2023 3:29 PM CS T Respiratory Rate 18 07/11/2023 4:54 PM DBA Oxygen Saturation 98% 07/11/2023 4:54 PM DBA Inhaled Oxygen Concentration - - Weight 84.9 kg (187 lb 2.7 oz) 07/11/2023 3:31 P M DBA Height 172 cm (5' 7.72) 05/21/2014 11:37 AM CDT Body Mass Index 28.7 05/21/2014 11:37 AM CDT Plan of Treatment Upcoming Encounters Date Type Department Care Team (Latest Contact Info) Description 07/24/2024 11:00 AM DBA Clinical Communication Virtual Review in [place], [place] [address] [place] [address] 07/27/2024 10:50 AM DBA Appointment Department of Laboratory Medicine and Pathology, [facility], in [place], [place] [address] [place] [phone] Albin Mercer M.D. [address] [place] [phone] 07/27/2024 12:00 PM DBA Appointment Department of Radiology, [facility], in [place], [place] [address] [place] [address] Albin Mercer M.D. [address] [place] [phone] 07/27/2024 1:00 PM DBA Diagnostic Division of Pulmonary Medicine in [place], [place] [address] [place] [address] Albin Mercer M.D. [address] [place] [phone] 07/27/2024 1:30 PM DBA Diagnostic Division of Pulmonary Medicine in [place], [place] [address] [place] [address] Albin Mercer M.D. [address] [place] [phone] 07/28/2024 8:00 AM DBA Comprehensive Visit Division of Pulmonary Medicine in [place], [place] [address] [place] [address] Albin Mercer M.D. [address] [place] [phone] Procedures Procedure Name Priority Date/Time Associated Diagnosis Comments BASIC METABOLIC PANEL, S/P STAT 07/11/2023 3:46 PM DBA HEMOGLOBIN A1C, B Routine 12/18/2012 9:3 5 AM CDT LIPID PANEL, S Routine 12/18/2012 9:35 AM CDT from Last 3 Months or Most Recently Relevant to Health Maintenance Results * (ABNORMAL) Basic Metabolic Panel (07/11/2023 3:46 PM DBA) Potassium, P 4.5 3.6 - 5.2 mmol/L 07/11/2023 4:16 PM DBA NPRG Sodium, P 137 135 - 145 mmol/L 07/11/2023 4:16 PM DBA NPRG Chloride, P 103 98 - 107 mmol/L 07/11/2023 4:16 PM DBA NPRG Bicarbonate, P 21(L) 22 - 29 mmol/L 07/11/2023 4:16 PM DBA NPRG Anion Gap, P 13 7 - 15 07/11/2023 4:16 PM DBA NPRG BUN (Blood Urea Nitrogen), P 17 8 - 24 mg/dL 07/11/2023 4:16 PM DBA NPRG Creatinine 0.93 0.74 - 1.35 mg/dL 07/11/2023 4:16 PM DBA NPRG Estimated GFR (eGFR) >90 >=60 mL/min/BSA 07/11/2023 4:16 PM DBA NPRG Comment: Estimated GFR calculated using the 2020 CKD_EPI creatinine equation. Calcium, Total, P 9.8 8.8 - 10.2 mg/dL 07/11/2023 4:16 PM DBA NPRG Glucose, P 115 70 - 140 mg/dL 07/11/2023 4:16 PM DBA NPRG Blood (Blood, Venous) 07/11/2023 3:46 PM DBA 07/11/2023 3:54 PM DBA Chris Arriaza M.D. LAB BLOOD ADD-ON Final Resul t [facility] [address] [place] [address], [facility] NPRG [facility] [address] [place] [address] * (ABNORMAL) Lipid Panel (12/18/2012 9:35 AM CDT) Pathologist [facility] Cholesterol, Total 266(H) SeeComment MG/DL [facility] Comment: Reference Range: ? NCEP guidelines ? (ages 18y and up) ? Desirable: <200 ? Borderline high: 200-239 ? High: > or =240 ? Triglycerides 120 SeeComment MG/DL [facility] Comment: Reference Range: ? NCEP guidelines ? (ages 18y and up) ? Normal: <150 ? Borderline high: 150-199 ? High: 200-499 ? Very high: > or =500 ? Cholesterol, HDL, S 42 SeeComment MG/DL [facility] Comment: Reference Range: ? NCEP guidelines ? (ages 18y and up) ? Low: <40 ? Normal: 40-59 ? High : > or =60 ? Calculated LDL 200(H) SeeComment MG/DL [facility] Comment: The markedly elevated LDL level is suggestive ? of familial hypercholesterolemia (FH) or another related ? genetic disease, familial defective [id number] (FDB). ? Molecular genetic testing for FH and FDB is available ? through [facility]: FH/ADH Genetic Reflex ? Panel (test 66905). LDL cholesterol can be markedly ? increased in cholestatic liver disease due to the presence ? of LpX. ??Family studies are recommended, including ? biochemical testing for lipids (total cholesterol, ? triglycerides, LDL cholesterol and HDL cholesterol) in ? family members. ??Please contact the laboratory at ? or the on-line test catalog at ? [email or web address] for information about how to ? order these tests. Further interpretation would require ? clinical information. ? Reference Range: ? NCEP guidelines ? (ages 18y and up) ? Optimal: <100 ? Near Optimal: 100-129 ? Borderline high: 130-159 ? High: 160-189 ? Very high: > or =190 ? Cholesterol, Non-HDL, Calculated 224(H) SeeComment MG/DL [facility] Comment: Reference Range: ? NCEP guidelines ? Desirable: <130 ? Borderline high: 130-159 ? High: 160-189 ? Very high: > or =190 ? 12/18/2012 9:35 AM CDT 12/18/2012 9:35 AM CDT us Paul Liang M.D. LAB BLOOD ADD-ON Final Resu lt Performing Organization Address City/[facility]/ZIP Co de Phone Number [facility] [address] * (ABNORMAL) Hemoglobin A1c (12/18/2012 9:35 AM CDT) Hemoglobin A1c, B 6.1(H) 4.0 - 6.0 % [facility] 12/18/2012 9:35 AM CDT 12/18/2012 9:35 AM CDT us Paul Liang M.D. LAB BLOOD ADD-ON Final Resu lt Performing Organization Address City/[facility]/ZIP Co de Phone Number [facility] [address] from Last 3 Months or Most Recently Relevant to Health Maintenance Insurance MEDICARE Care Teams Bottle Line Worker Relationship Specialty Start Date End Date Elsewhere, Pcp PCP - General Internal Medicine 05/06/24
--- OUTSIDE RECORDS SUMMARY | 2024-07-13 19:50 | XMS_ITS | Encounter Summary ---
Author Organization [facility] Address [address] [place] [address] Care Team Providers Care Commissary Manager Name Role Phone Elsewhere, Pcp Primary Care Provider Unavailabl e Reason for Referral * Outpatient (Routine) - Authorized Specialty Diagnoses / Procedures Referred By Contac t Referred To Contact Diagnoses Asthma Mild Intermittent (HCC) Procedures DX Chest AP or PA and Lateral 2 Views Albin Mercer M.D. [address] [place] [phone] Phone: tel: fax: [facility] Referral ID Status Reason Start Date Expiration Date V isits Requested Visits Authorized [id number] Authorized 07/03/2024 07/03/2025 1 1 Encounter Details Date Type Department Care Team (Late st Contact Info) Description 07/03/2024 Orders Only Division of Pulmonary Medicine in [place], [place] [address] [place] [phone] [facility] Asthma Mild Intermittent (HCC) Social History Tobacco Use Types Packs/Day Years Used Date Smoking Tobacco: Unknown Alcohol Use Standard Drinks/Week Comments Not Currently 0 (1 standard drink = 0.6 oz pur e alcohol) Nutrition Answer Date Recorded Nutrition: EVOO Fat Source Unknown 09/18 Nutrition: Servings of Fruits/Vegetables per Day Not on file 09/18/2022 Dental Answer Date Recorded Dental: Regular Dentist Unknown 09/18/19 23 Sex and Gender Information Value Date Recorded Sex Assigned at Not on file Legal Sex Male 4:01 PM VALVE MAKER Gender Identity Not on file Sexual Orientation Not on file documented as of this encounter Plan of Treatment Upcoming Encounters Date Type Department Care Team (Latest Contact Info) Description 07/24/2024 11:00 AM VALVE MAKER Clinical Communication Virtual Review in [place], [place] 200 [place] [address] 07/27/2024 10:50 AM VALVE MAKER Appointment Department of Laboratory Medicine and Pathology, [facility] in [place], [place] [address] [place] [phone] Albin Mercer M.D. [address] [place] [phone] 07/27/2024 12:00 PM VALVE MAKER Appointment Department of Radiology, [facility], in [place], [place] [address] [place] [phone] Albin Mercer M.D. [address] [place] [phone] 07/27/2024 1:00 PM VALVE MAKER Diagnostic Division of Pulmonary Medicine in [address] [phone] Albin Mercer M.D. [address] [place] [phone] 07/27/2024 1:30 PM VALVE MAKER Diagnostic Division of Pulmonary Medicine in [address] [phone] Albin Mercer M.D. [address] [place] [phone] 07/28/2024 8:00 AM VALVE MAKER Comprehensive Visit Division of Pulmonary Medicine in [address] [phone] Albin Mercer M.D. [address] [place] [phone] Scheduled Orders Name Type Priority Associated Diagnoses Orde r Schedule DX Chest AP or PA and Lateral 2 Views Imaging RAD - Routine (most inpatients and all outpatients) Asthma Mild Intermittent (HCC) Expected: 07/03/2024 (Approximate), Expires: 10/03/2025 Immunoglobulin E (IgE) Lab Routine Asthma Mild Intermittent (HCC) Expected: 07/03/2024 (Approximate), Expires: 10/03/2025 CBC with Differential, Blood Lab Routine Asthma Mild Intermittent (HCC) Expected: 07/03/2024 (Approximate), Expires: 10/03/2025 PUL Exhaled Nitric Oxide PFT Routine Asthma Mild Intermittent (HCC) Expected: 07/03/2024 (Approximate), Expires: 10/03/2025 Pulmonary Function Tests PFT Routine Asthma Mild Intermittent (HCC) Expected: 07/03/2024 (Approximate), Expires: 10/03/2025 documented as of this encounter Visit Diagnoses Diagnosis Asthma Mild Intermittent (HCC) documented in this encounter Care Teams Commissary Manager Relationship Specialty Start Date End Date Elsewhere, Pcp PCP - General Internal Medicine 05/06/24 documented as of this encounter
--- OUTSIDE RECORDS SUMMARY | 2024-07-13 19:50 | XMS_ITS | Encounter Summary ---
Author Organization [facility] Address [address] [place] [address] Care Team Providers Care Assistant Prosecuting Attorney Name Role Phone Elsewhere, Pcp Primary Care Provider Unavailabl e Reason for Visit * Reason Onset Date Comments PCP Elsewhere 05/06/2024 Encounter Details Date Type Department Care Team (Late st Contact Info) Description 05/06/2024 Clinical Communication Department of Community Internal Medicine in [address] [phone] Elsewhere, Pcp PCP Elsewhere Social History Tobacco Use Types Packs/Day Years [...] on file Legal Sex Male 4:01 PM BREAKFAST BAR ATTENDANT Gender Identity Not on file Sexual Orientation Not on file documented as of this encounter Plan of Treatment Upcoming Encounters Date Type Department Care Team (Latest Contact Info) Description 07/24/2024 11:00 AM BREAKFAST BAR ATTENDANT Clinical Communication Virtual Review in [place], [place] 200 [place] [address] 07/27/2024 10:50 AM BREAKFAST BAR ATTENDANT Appointment Department of Laboratory Medicine and Pathology, [facility] in [place], [place] [address] [place] [phone] Albin Mercer M.D. [address] [place] [phone] 07/27/2024 12:00 PM BREAKFAST BAR ATTENDANT Appointment Department of Radiology, [facility] in [place], [place] [address] [place] [address] Albin Mercer M.D. [address] [place] [phone] 07/27/2024 1:00 PM BREAKFAST BAR ATTENDANT Diagnostic Division of Pulmonary Medicine in [place], [place] [address] [place] [address] Albin Mercer M.D. [address] [place] [phone] 07/27/2024 1:30 PM BREAKFAST BAR ATTENDANT Diagnostic Division of Pulmonary Medicine in [place], [place] [address] [place] [address] Albin Mercer M.D. [address] [place] [phone] 07/28/2024 8:00 AM BREAKFAST BAR ATTENDANT Comprehensive Visit Division of Pulmonary Medicine in [place], [place] [address] [place] [address] Albin Mercer M.D. [address] [place] [phone] documented as of this encounter Visit Diagnoses Not on filedocumented in this encounter Care Teams Assistant Prosecuting Attorney Relationship Specialty Start Date End Date Elsewhere, Pcp PCP - General Internal Medicine 05/06/24 documented as of this encounter
--- OUTSIDE RECORDS SUMMARY | 2024-07-13 19:50 | XMS_ITS | Encounter Summary ---
Author Organization [facility] Address [address] [place] [address] Care Team Providers Care Contracting Engineer Name Role Phone Elsewhere, Pcp Primary Care Provider Unavailabl e Encounter Details Date Type Department Care Team (Late st Contact Info) Description 06/26/2024 Clinical Communication Department of Family Medicine, [address] [place] [phone] Elsewhere, Pcp Social History Tobacco Use Types Packs/Day Years [...] on file Legal Sex Male 4:01 PM ORTHOPAEDIC DOCTOR Gender Identity Not on file Sexual Orientation Not on file documented as of this encounter Plan of Treatment Upcoming Encounters Date Type Department Care Team (Latest Contact Info) Description 07/24/2024 11:00 AM ORTHOPAEDIC DOCTOR Clinical Communication Virtual Review in [place], [place] 200 [place] [address] 07/27/2024 10:50 AM ORTHOPAEDIC DOCTOR Appointment Department of Laboratory Medicine and Pathology, [facility] in [place], [place] [address] [place] [phone] Albin Mercer M.D. [address] [place] [phone] 07/27/2024 12:00 PM ORTHOPAEDIC DOCTOR Appointment Department of Radiology, [facility], in [place], [place] [address] [place] [address] Albin Mercer M.D. [address] [place] [phone] 07/27/2024 1:00 PM ORTHOPAEDIC DOCTOR Diagnostic Division of Pulmonary Medicine in [place], [place] [address] [place] [address] Albin Mercer M.D. [address] [place] [phone] 07/27/2024 1:30 PM ORTHOPAEDIC DOCTOR Diagnostic Division of Pulmonary Medicine in [place], [place] [address] [place] [address] Albin Mercer M.D. [address] [place] [phone] 07/28/2024 8:00 AM ORTHOPAEDIC DOCTOR Comprehensive Visit Division of Pulmonary Medicine in [place], [place] [address] [place] [address] Albin Mercer M.D. [address] [place] [phone] documented as of this encounter Visit Diagnoses Not on filedocumented in this encounter Care Teams Contracting Engineer Relationship Specialty Start Date End Date Elsewhere, Pcp PCP - General Internal Medicine 05/06/24 documented as of this encounter
--- OUTSIDE RECORDS SUMMARY | 2024-07-13 19:50 | XMS_ITS | Encounter Summary ---
Author Organization [facility] Address [address] [place] [address] Care Team Providers Care Building Construction Superintendent Name Role Phone Elsewhere, Pcp Primary Care Provider Unavailabl e Encounter Details Date Type Department Care Team (Late st Contact Info) Description 12/19/2012 Historical Ophthalmology [facility] Jagjit Otoole O.D. [address] [place] [phone] Social History Tobacco Use Types Packs/Day Years Used Date Smoking Tobacco: Never Assessed Sex and Gender Information Value Date Recorded Sex Assigned at Not on file Legal Sex Male 4:01 PM MOLD UNLOADER Gender Identity Not on file Sexual Orientation Not on file documented as of this encounter Progress Notes * Jagjit Otoole O.D. - 12/19/2012 10:12 AM CDT Eye General CHIEF COMPLAINT Complications after cataract surgery. HISTORY OF PRESENT ILLNESS 52 year old male, s/p IOL RE, April 2012, LE, October 2009. Since the surgery he has been bothered by glare, dryness, irritation. He is constantly getting headaches. Was told he has a refractive error and that he would need corneal surgery to correct it however, it would be out of pocket. Patientnotes sharp stabbing pain, intermittent, both eyes R>L. Lasts just briefly, uses tears as neededand this helps. IMPRESSION / REPORT / PLAN #1 Refractive error (hyperopic astigmatism, presbyopia). Plan: spectacle prescription (Refraction 1) given. #2 Iris tear, left eye This is probably left over from his injury as a child. However, this is not his biggest concern. He is primarily interested in a non-optical correction for the right eye, which he has relied on throughout his life. Now after cataract surgery, he needs glasses to see clearly and this is causing him some distress. I explained he can see quite clearly with glases, and, presumably, a contact lens.We had a discussion about refractive surgery, but the outcomes are less predictable with hyperopic correction. He agreed to try the glasses first, then consider contact lenses before moving forward with refractive surgery. DIAGNOSIS #1 Refractive error (hyperopic astigmatism, presbyopia). #2 Iris tear, left eye CDM Reports - EYEGEN Id: [id number] Status: Fnl documented in this encounter Plan of Treatment Upcoming Encounters Date Type Department Care Team (Latest Contact Info) Description 07/24/2024 11:00 AM MOLD UNLOADER Clinical Communication Virtual Review in [address] [phone] 07/27/2024 10:50 AM MOLD UNLOADER Appointment Department of Laboratory Medicine and Pathology, [facility] in [address] [phone] Albin Mercer M.D. [address] [place] [phone] 07/27/2024 12:00 PM MOLD UNLOADER Appointment Department of Radiology, [facility] in [address] [phone] Albin Mercer M.D. [address] [place] [phone] 07/27/2024 1:00 PM MOLD UNLOADER Diagnostic Division of Pulmonary Medicine in [address] [phone] Albin Mercer M.D. [address] [place] [phone] 07/27/2024 1:30 PM MOLD UNLOADER Diagnostic Division of Pulmonary Medicine in [address] [phone] Albin Mercer M.D. [address] [place] [phone] 07/28/2024 8:00 AM MOLD UNLOADER Comprehensive Visit Division of Pulmonary Medicine in [place], [place] [address] [place] [address] Albin Mercer M.D. [address] [place] [phone] documented as of this encounter Visit Diagnoses Not on filedocumented in this encounter Care Teams Building Construction Superintendent Relationship Specialty Start Date End Date Elsewhere, Pcp PCP - General Internal Medicine 05/06/24 documented as of this encounter
--- OUTSIDE RECORDS SUMMARY | 2024-07-13 19:50 | XMS_ITS | Clinical Summary ---
Author Organization [facility] Address [place], [place] [address] Care Team Providers Care Risk Management Internship Name Role Phone Elias Jules Shun Unavailable Víctor Gallego MD Unavailable Gwendolyn Breezy Pate MD Primary Care Provider [phone] Allergies Active Allergy Reactions Criticality Noted Date Comments Aripiprazole Other - Describe In Comment Field 05/07/2013 Had a sore throat and felt like he was going to pass out Azelastine Other - Describe In Comment Field 06/22/2019 Fluoxetine Other - Describe In Comment Field 12/23/2013 [place] suicidal/agitated with one dose- wanted to jump out of the car Lisinopril Other - Describe In Comment Field 01/06/2018 Joint pain fatigue weakness - even a light ladder Morphine Nausea Only 03/23/2020 Prednisone Other - Describe In Comment Field 10/20/2014 Suicidal; too agitated Sulfa (Sulfonamide Antibiotics) Hives 10/16/2005 Tizanidine Other - Describe In Comment Field 12/28/2019 Legs gave out from underneath him. Won't take again. Medications Medication Sig Dispensed Refills Start Date End Date Status chlorthalidone (HYGROTON) 25 mg tabletIndications:Hy pertension, unspecified type Take 0.5 Tablets (12.5 mg) by mouth once daily. 45 Tablet 3 12/18/2023 Active enalapril (VASOTEC) 5 mg tabletIndications:Hy pertension, unspecified type Take 1 Tablet (5 mg) by mouth two times daily. 180 Tablet 3 01/07/2024 Active amitriptyline (ELAVIL) 50 mg tabletIndications:In somnia, unspecified type Take 1 Tablet (50 mg) by mouth once daily. 30 Tablet 11 03/04/2024 Active aspirin chewable 81 mg chewable tabletIndications:Hy pertension, unspecified type,Hyperlipidemia, unspecified hyperlipidemia type Chew 1 Tablet (81 mg) by mouth once daily. 90 Tablet 3 04/01/2024 Active ALPRAZolam (XANAX) 0.5 mg tabletIndications:An xiety TAKE 1 TABLET(0.5 MG) BY MOUTH AT BEDTIME 30 Tablet 06/22/2024 Active metFORMIN (GLUCOPHAGE XR) 500 mg Extended-Release tabletIndications:Ty pe 2 diabetes mellitus with retinopathy of right eye, without long-term current use of insulin, macular edema presence unspecified, unspecified retinopathy severity (HC) TAKE 1 TABLET(500 MG) BY MOUTH DAILY 90 Tablet 3 07/03/2024 Active ALPRAZolam (XANAX) 0.5 mg tabletIndications:An xiety TAKE 1 TABLET(0.5 MG) BY MOUTH AT BEDTIME 30 Tablet 05/01/2024 4 Discontinued metFORMIN (GLUCOPHAGE XR) 500 mg Extended-Release tabletIndications:Ty pe 2 diabetes mellitus with retinopathy of right eye, without long-term current use of insulin, macular edema presence unspecified, unspecified retinopathy severity (HC) Take 1 Tablet (500 mg) by mouth once daily. 30 Tablet 11 07/01/2024 4 Discontinued Active Problems Patient Care Coordination No te Formatting of this note migh t be different from the original. HF/Structural/Prevention Research Eligibility Review Date: 10/23/19 Upcoming Visit Location: Outreach Age: 59 y.o. 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, seroquel zyprexa Hyperlipidemia 10/20/2009 Overview (11/23/2010): Intolerable of simvastatin (although he had done well on the lipitor in the past) Zetia is prescribed today to check labs in 3 months. Essential hypertension 01/31/2007 Overview (12/25/2021): Overview: Hypertension (HTN) NOS IMO Update Hypertension (HTN) NOS Panic disorder with agoraphobia 02/14/2006 Overview (12/25/2021): IMO Update 06/12 Mitral valve disease 06/26/1999 Overview (01/16/2022): IMO Update 06/12 History of posttraumatic stress disorder (PTSD) Insomnia Murmur Overview (11/20/2010): Echo from 08/2008 showed ? 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 History of attention deficit disorder with hyperactivity(314.01) Bilateral cataracts Resolved Problems Problem Noted Date Diagnosed Date Resolved Date Prediabetes 11/26/2022 08/28/2023 Depression, recurrent 09/21/20222023 Alcohol use disorder, modera te, in sustained remission since 201601/16/2022 09/21/2022 Bicuspid aortic valve 12/25/20212022 Severe recurrent major depre ssion without psychotic features 01/29/2018 03/17/2020 Routine adult health maintenance 05/18/2015 10/18/2021 Overview (05/18/2015): Colonoscopy 05/2015 normal repeat in 10 years EGD 05/2015 normal History of personality disorder 03/15/2015 12/16/2023 Prediabetes 03/14/2015 10/18/2021 Mood disorder 05/21/2014 01/16/2022 Overview (12/25/2021): Disorder Mood NOS Bipolar 1 disorder 05/10/2014 2 Diabetes mellitus, type 2 12/19/2012 Bicuspid aortic valve 12/18/20122017 Insomnia, unspecified 10/09/20102010 Diabetes mellitus type II 11/25/2009 Overview (11/17/2013): a system change updated this record. This will not affect patient care or billing. This comment can be deleted. Possible Bicuspid Aortic Valve 08/31/2008 01/15/2017 Overview (08/31/2008): See echocardiogram 08/2008 Acromioclavicular (joint) (ligament) sprain 08/31/2008 10/18/2021 Depression 04/14/2013 Other and unspecified hyperlipidemia 03/17/2020 Grave's disease 01/15/2017 Impingement syndrome of left shoulder 10/18/2021 Adhesive capsulitis of left shoulder 10/18/2021 Superior glenoid labrum lesi on of left shoulder 10/18/2021 Encounters Date Type Department Care Team Description 07/13/2024 Telephone [facility] [address] [place] [address] Mercedes Galvan RN Blood Pressure (Walk in) 07/01/2024 Refill [facility] [address] [place] [address] Breezy Glynn MD Refill Request (Metformin) 07/01/2024 Telephone [facility] [address] [place] [address] Breezy Glynn MD Results 06/30/2024 3:25 PM CDT Office Visit [facility] [address] [place] [address] Breezy Glynn MD Medicare ANNUAL (subsequent) Visit; Follow Up (cardiology; blood sugars) 06/30/2024 Travel 06/28/2024 Refill [facility] [address] [place] [address] Breezy Glynn MD Refill Request (Chlorthalidone) 06/25/2024 Telephone [facility] [address] [address] Paul Kim MD NEURO REFERRAL 06/24/2024 Telephone [facility] [address] [place] [address] Breezy Glynn MD Referral (Cardiology and pulmonology ) 06/20/2024 Refill [facility] [address] [place] [address] Breezy Glynn MD Refill Request (Alprazolam) 06/17/2024 9:00 AM CDT Ancillary Procedure [facility] [address] [place] [phone] 06/17/2024 Travel 06/09/2024 8:30 AM CDT Office Visit [facility] [address] [place] [phone] King Harrell MD Follow Up (Stenosis of carotid artery) 06/09/2024 Travel 06/09/2024 Telephone [facility] [address] [place] [phone] King Harrell MD Appointment 06/03/2024 Telephone [facility] [address] [place] [address] Breezy Glynn MD Questions (atorvastatin (LIPITOR) 40 mg tablet) 05/31/2024 Orders Only [facility] Scanner 1 scan: (1-Ord) [place] [facility], XR FOOT RIGHT 2V, 05/31/2024 04/29/2024 8:00 AM CDT Nutrition/Dieticide[facility] [address] [place] [address] Marichuy Heredia, FR[facility] Nutrition Therapy 04/29/2024 Refill [facility] [address] [place] [address] Breezy Glynn MD Refill Request (Albuterol Hfa, Alprazolam) 04/29/2024 Travel 04/28/2024 Telephone [facility] [address] [place] [address] Breezy Glynn MD Referral (Endocrinology) 04/15/2024 Telephone [facility] [address] [place] [address] Vidal Vásquez MD Follow Up from Last 3 Months Immunizations Name Administration Dates Next Due Influenza Virus, Unspecified 06/30/2008,09/27/19 07 Influenza, IIV3 (Age 6-35 mos) 06/30/2008 Td (Age >=7 Years) 09/02/2006,03/27/2006 Td, Preservative Free (age >= 7 Years) 6 Tdap 03/27/2006 Family History Medical History Relation Name Comments Psychiatric illness Brother 3 schizoph renic Alcohol/Drug Father alcoholic Diabetes Father type II Heart Disease Father [address] 10 years ago- 1 year apart two different surgeries, aneryism currently Hypertension Father Good Health Mother Psychiatric illness Sister 7 panic an xiety Psychiatric illness Sister 8 anxiety Alcohol/Drug Sister [...] Types Packs/Day Years Used Date Smoking Tobacco: Former Cigarettes 0.1 31.7 0 09/02/1976 - 04/27/2008 Smokeless Tobacco: Never Tobacco Cessation:Counseling Given: Yes Alcohol Use Standard Drinks/Week Comments Not Currently 0 (1 standard drink = 0.6 oz pur e alcohol) Very rare PHQ-2 Answer Date Recorded PHQ-2 TOTAL SCORE 6 06/30/2024 Social Connections Answer Date Recorded Do you often feel lonely or isolated from those around you? 4 06/30/2024 Alcohol Use Answer Date Recorded How often do you have a drink containing alcohol ? 2 03/12/2022 How many drinks containing a lcohol do you have on a typical day when you are drinking? 0 03/12/2022 How often do you have five or more drinks on one occasion? 0 03/12/2022 Financial Resource Strain Answer Date R ecorded Difficulty of Paying Living Expenses 3 06/30/2024 Difficulty of Paying Living Expenses Not on file 06/30/2024 Food Insecurity Answer Date Recorded Do you worry your food will run out before you are able to buy more? 1 06/30/2024 Transportation Needs Answer Date Record ed Does lack of transportation keep you from medica l appointments? 1 06/30/2024 Does lack of transportation keep you from work, meetings or getting things that you need? 1 06/30/2024 Housing Stability Answer Date Recorded What is your housing situation today? 1 06/30/2024 Sex and Gender Information Value Date Recorded Sex Assigned at Not on file Gender Identity Not on file Sexual Orientation Not on file Obstetrics History Last Filed Vital Signs Vital Sign Reading Time Taken Comments Blood Pressure 122/72 06/30/2024 3:13 PM CDT Pulse 82 06/30/2024 3:13 PM CDT Temperature 36.6 ??C (97.8 ??F) 12/14/2022 7 :28 AM CDT Respiratory Rate 14 03/06/2022 6:38 PM CDT Oxygen Saturation 96% 06/30/2024 3:1 3 PM CDT Inhaled Oxygen Concentration - - Weight 79.5 kg (175 lb 4.8 oz) 06/30/2024 3:13 PM CDT patient reported Height 170.2 cm (5' 7) 03/04/2024 1:59 PM CDT Body Mass Index 27.46 03/04/2024 1:59 PM CDT Plan of Treatment Upcoming Encounters Date Type Department Care Team (Late st Contact Info) Description 10/13/2024 9:00 AM [facility] Office Visit [facility] [address] [facility] [address] [place] [address] Paul Kim MD [address] [place] [address] Health Maintenance Due Date Last Done Comments Pneumococcal series for age 65+ (1 of 2 - PCV) 1965 HIV for age 15-65 1974 Hepatitis C screening for ag e 18-79 1977 Zoster (shingles) series for age 50+ (1 of 2) 2009 Tetanus booster 09/02/2016 09/02/2006, 03/03, 03/27/2006, Additional history exists AAA screening age 65-74 2024 06/27/20 23, 10/27/2019, 09/02/2004 COVID-19 vaccine series ( season) 2024 Influenza for age 65+ 05/03/2024 06/30/2008, 007 BMI (ht and wt on same day) for age 18+ 03/04/2025 03/04/2024, 08/14/2023, 08/13/2023, Additional history exists Colonoscopy through age 75 05/17/2025 05/17/2015 Depression screening for age 12+ 07/01/2025 07/01/2024, 06/30/2024, 06/28/2024, Additional history exists Medicare Wellness for age 65+ 07/01/2025, 06/03/2023, 03/12/2022, Additional history exists Lipids for age 45-75 04/23/2027 04/23/2022, 10/18/2021, 08/24/2021, Additional history exists Tdap Completed 03/27/2006 Medical Devices Implanted Type Area Operations Assistant Device Identifier Shelf Expiration Date Model / Serial / Lot Log [id number] - Carolyn [id number] Lens Iol - 1 - Lens Iol 23.5 Tecnis Implanted:Qty: 1 on 10/26/2009 at [facility] Left: Eye [employer] [id number] / [id number] / Log [id number] - Carolyn [id number] Lens Iol - 1 - Lens Iol 22.5 Tecnis Implanted:Qty: 1 on 04/09/2012 by Jorge A Enriquez MD at [facility] Right: Eye [employer] 11/07/2016 [id number] / [id number] / Procedures Procedure Name Priority Date/Time Associated Diagnosis Comments VITAMIN B12 Routine 06/30/2024 4:02 PM CDT Wellness examination COMP METABOLIC PANEL Routine 06/30/2024 4:02 PM CDT Wellness examination Essential hypertension 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, without long-term current use of insulin, macular edema presence unspecified, unspecified retinopathy severity (HC) VITAMIN D 25 (DEFICIENCY) Routine 06/30/2024 4:02 PM CDT Vitamin D deficiency CBC WITH AUTO DIFFERENTIAL Routine 06/30/2024 4:02 PM CDT Wellness examination HEMOGLOBIN A1C Routine 06/30/2024 4:02 PM CDT Wellness examination 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, without long-term current use of insulin, macular edema presence unspecified, unspecified retinopathy severity (HC) ECHO TTE COMPLETE WO CONTRAST Routine 06/17/2024 9:29 AM CDT High coronary artery calcium score SCAN-RADIOLOGY REPORT 05/31/2024 12:[address] ABDOMEN PELVIS WO Routine 06/27/2023 7:37 AM CDT Acute right flank pain LIPID PANEL W REFLEX MEASURED LDL Routine 04/23/2022 9:05 AM CDT History of transient ischemic attack (TIA) Abnormal finding of blood chemistry, unspecified from Last 3 Months or Most Recently Relevant to Health Maintenance Results * (ABNORMAL) HEMOGLOBIN A1C (06/30/2024 4:02 PM CDT) HEMOGLOBIN A1C 9.4(H) <5.7 % of total Hgb [facility] Comment: For someone without known diabetes, a hemoglobin A1c value of 6.5% or greater indicates that they may have diabetes and this should be confirmed with a follow-up test. For someone with known diabetes, a value <7% indicates that their diabetes is well controlled and a value greater than or equal to 7% indicates suboptimal control. A1c targets should be individualized based on duration of diabetes, age, comorbid conditions, and other considerations. Currently, no consensus exists regarding use of hemoglobin A1c for diagnosis of diabetes for children. ?? Blood BLOOD SPECIMEN / Unknown 06/30/2024 4:02 PM CDT 06/30/2024 4:02 PM CDT Breezy Glynn MD CHEMISTRY [facility] [address] [place] [address], [facility] [address] [place] [address] * (ABNORMAL) VITAMIN D 25 (DEFICIENCY) (06/30/2024 4:02 PM CDT) VITAMIN D,25-OH,TOTAL,IA 26(L) 30 - 100 ng/mL [facility] Comment: Vitamin D Status ? 25-OH Vitamin D: Deficiency: ?<20 ng/mL Insufficiency: ? 20 - 29 ng/mL Optimal: ? > or = 30 ng/mL For 25-OH Vitamin D testing on patients on D2-supplementation and patients for whom quantitation of D2 and D3 fractions is required, the QuestAssureD(TM) 25-OH VIT D, (D2,D3), LC/MS/MS is recommended: order code 88614 (patients >2yrs). See Note 1 Note 1 For additional information, please refer to http://education.[employer]/faq/GSO540 (This link is being provided for informational/ educational purposes only.) Blood BLOOD SPECIMEN / Unknown 06/30/2024 4:02 PM CDT 06/30/2024 4:02 PM CDT Breezy Glynn MD SEND OUTS [facility] [address] [place] [address], [facility] [address] [place] [address] * CBC AND DIFFERENTIAL (06/30/2024 4:02 PM CDT) WHITE BLOOD CELL COUNT 6.3 3.8 - 10.8 Thousand/u L [facility] [place] RED BLOOD CELL COUNT 4.26 4.20 - 5.80 Million/uL [facility] [place] HEMOGLOBIN 13.5 13.2 - 17.1 g/dL [facility] [place] HEMATOCRIT 40.3 38.5 - 50.0 % [facility] [place] MCV 94.6 80.0 - 100.0 fL [facility] [place] MCH 31.7 27.0 - 33.0 pg [facility] [place] MCHC 33.5 32.0 - 36.0 g/dL [facility] [place] Comment: For adults, a slight decrease in the calculated MCHC value (in the range of 30 to 32 g/dL) is most likely not clinically significant; however, it should be interpreted with caution in correlation with other red cell parameters and the patient's clinical condition. RDW 12.1 11.0 - 15.0 % [facility] [place] PLATELET COUNT 279 140 - 400 Thousand/u L [facility] [place] MPV 9.5 7.5 - 12.5 fL [facility] [place] ABSOLUTE NEUTROPHILS 3,692 1,500 - 7,800 cells/uL [facility] [place] ABSOLUTE LYMPHOCYTES 1,758 850 - 3,900 cells/uL [facility] [place] ABSOLUTE MONOCYTES 674 200 - 950 cells/uL [facility] [place] ABSOLUTE EOSINOPHILS 139 15 - 500 cells/uL [facility] [place] ABSOLUTE BASOPHILS 38 0 - 200 cells/uL [facility] [place] NEUTROPHILS 58.6 % [facility] [place] LYMPHOCYTES 27.9 % [facility] [place] MONOCYTES 10.7 % [facility] [place] EOSINOPHILS 2.2 % [facility] [place] BASOPHILS 0.6 % [facility] [place] Blood BLOOD SPECIMEN / Unknown 06/30/2024 4:02 PM CDT 06/30/2024 4:02 PM CDT Breezy Glynn MD HEMATOLOGY [facility] [address] [place] [address], [facility] [address] * VITAMIN B12 (06/30/2024 4:02 PM CDT) [facility] VITAMIN B12 381 200 - 1,100 pg/mL [facility] [place] Comment: Please Note: Although the reference range for vitamin B12 is 200-1100 pg/mL, it has been reported that between 5 and 10% of patients with values between 200 and 400 pg/mL may experience neuropsychiatric and hematologic abnormalities due to occult B12 deficiency; less than 1% of patients with values above 400 pg/mL will have symptoms. Blood BLOOD SPECIMEN / Unknown 06/30/2024 4:02 PM CDT 06/30/2024 4:02 PM CDT Breezy Glynn MD CHEMISTRY [facility] [address] [place] [address], [facility] [address] [place] [address] * (ABNORMAL) COMP METABOLIC PANEL (06/30/2024 4:02 PM CDT) Pathologist [facility] GLUCOSE 198(H) 65 - 99 mg/dL [facility] [place] Comment: ? Fasting reference interval For someone without known diabetes, a glucose value >125 mg/dL indicates that they may have diabetes and this should be confirmed with a follow-up test. UREA NITROGEN (BUN) 22 7 - 25 mg/dL [facility] [place] CREATININE 1.34 0.70 - 1.35 mg/dL [facility] [place] EGFR 59(L) > OR = 60 mL/min/1. 73m2 [facility] [place] BUN/CREATININE RATIO SEE NOTE: 6 - 22 (calc) [facility] [place] Comment: ?? Not Reported: BUN and Creatinine are within ?? reference range. ? SODIUM 141 135 - 146 mmol/L [facility] [place] POTASSIUM 4.0 3.5 - 5.3 mmol/L [facility] [place] CHLORIDE 106 98 - 110 mmol/L [facility] [place] CARBON DIOXIDE 26 20 - 32 mmol/L [facility] [place] CALCIUM 9.3 8.6 - 10.3 mg/dL [facility] [place] PROTEIN, TOTAL 6.4 6.1 - 8.1 g/dL [facility] [place] ALBUMIN 4.1 3.6 - 5.1 g/dL [facility] [place] GLOBULIN 2.3 1.9 - 3.7 g/dL (calc) [facility] [place] ALBUMIN/GLOBULIN RATIO 1.8 1.0 - 2.5 (calc) [facility] [place] BILIRUBIN, TOTAL 0.3 0.2 - 1.2 mg/dL [facility] [place] ALKALINE PHOSPHATASE 53 35 - 144 U/L [facility] [place] AST 20 10 - 35 U/L [facility] [place] ALT 24 9 - 46 U/L [facility] [place] Blood BLOOD SPECIMEN / Unknown 06/30/2024 4:02 PM CDT 06/30/2024 4:02 PM CDT Breezy Glynn MD CHEMISTRY [facility] [address] [place] [address], [facility] [address] [place] [address] * ECHO TTE COMPLETE WO CONTRAST (06/17/2024 9:29 AM CDT) AORTIC VALVE MEAN PG 26 mmHg EJECTION FRACTION 60 % LVEDD 3.6 cm Anatomical Region Laterality Modality Ultrasound 06/17/2024 9:03 AM CDT Narrative 06/17/2024 11:31 AM CDT ECHOCARDIOGRAM LYLY PEREZ JR. ? Accession#: ?? [id number] : ?1960 64 years Study Date: ?? 06/17/2024 9:03:00 AM Gender: M ?BP: ? 143/81 mmHg Height: 170.00 cm ?BSA: ?1.91 m? ? ? Weight: 79.00 kg ? Tech: ? MSR ? Referring MD: KING HARRELL Site: ? [facility] [place] Location: Mobile OP Patient Location: Outpatient. Procedure: 2D, Color Doppler and Spectral Doppler. Indication for study: High coronary artery calcium score Cardiac Rhythm: Regular.Study quality: Good. Final Impressions: 1. Normal left ventricular size, normal wall thickness, normal global systolic function, calculated EF of 60 %. 2. Right ventricular cavity size is normal, global systolic RV function is normal. 3. The aortic valve is calcified and sclerotic, moderate stenosis and mild to moderate regurgitation. The aortic valve peak velocity is 3.2 m/s, the peak gradient is 42 mmHg, and the mean gradient is 26 mmHg. The aortic valve area is 1.30 cm? ? ? with a dimensionless index of 0.38. The stroke volume index is 50.8 ml/m? ? ?. 4. No pericardial effusion. Comparison Compared to prior exam images and report of 08/05/23: The aortic stenosis severity is similar to prior study in the moderate range. Chamber Sizes and Function Normal left ventricular size, normal wall thickness, normal global systolic function, calculated EF of 60 %. No resting regional wall motion abnormality visualized. Left atrial size is normal. Left atrial pressure is normal. Right ventricular cavity size is normal, global systolic RV function is normal. RV wall thickness is normal. The right atrium is normal. The pulmonary artery is of normal size and origin. The sinus of Valsalva is normal sized. The ascending aorta is normal sized. Valves, RV Pressures and Diastolic Function The aortic valve is calcified and sclerotic, moderate stenosis and mild to moderate regurgitation. The mitral valve is normal in structure, no mitral regurgitation. Normal diastolic function. The tricuspid valve is normal in structure. Tricuspid regurgitation is trace regurgitation. The pulmonic valve is normal. No pulmonary regurgitation. Masses, Effusion, Shunts There is no pericardial effusion. The inferior vena cava is normal sized, respiratory size variation greater than 50%. No left to right shunting was detected by limited color flow Doppler interrogation of the interatrial septum. MEASUREMENTS AND CALCULATIONS 2-D Measurements and LV Function: LVID (d) 3.6 cm Planimetered EF 60 % LVID (s) 2.7 cm LV FS% (2D) ? 25 % IVS (d) ??0.9 cm LVOT diameter ?? 2.1 cm LVPW (d) 0.9 cm HR ?62 bpm Ao Sinus 3.3 cm LA Vol index ?21 ml/m2 Asc Ao ?? 3.6 cm RV Max 4C (d) ?? 4.8 cm Diastology: Mitral ?Tissue Doppler E Peak 0.6 m/s ??e', Septum ? 0.08 m/s A Peak 0.6 m/s ??e', Lateral ?0.11 m/s E/A ?1.0 ?E/e' Average ?? 6.48 DT ? 229 msec Aortic Valve: Vmax ? 3.2 m/s ??INDIGO (V) ?? 1.32 cm? AI P 1/2 668 msec VTI ?0.74 m ?? INDIGO (I) ?? 1.30 cm? ? ? LVOT V max 1.2 m/s ??Max PG ?42 mmHg LVOT VTI ?? 0.28 m ?? Mean PG ?? 26 mmHg SV ? 97 ml ?Dim Index 0.38 SV index ?? 51 ml/m? ? ? CO ?6.0 l/min ?CI ?3.2 l/min/m? ? ? Mitral Valve: MVA ?3.3 cm? ? ? MV P 1/2 66 msec Tricuspid Valve and estimated PA pressures: TAPSE 2.9 cm . This study was interpreted by an [facility] accredited facility. ??Final ?? Procedure Note Ford Mendosa MD - 06/17/2024 ECHOCARDIOGRAM LLYY CARRLAURIE DIAZ. : 1960 64 years Study Date: 06/17/2024 9:03:00 AM Gender: M BP: 143/81 mmHg Height: 170.00 cm BSA: 1.91 m? ? ? Weight: 79.00 kg Tech: ROBEL Referring MD: KING HARRELL Site: [facility] Reading Location: Mobile OP Patient Location: Outpatient. Procedure: 2D, Color Doppler and Spectral Doppler. Indication for study: High coronary artery calcium score Cardiac Rhythm: Regular.Study quality: Good. Final Impressions: 1. Normal left ventricular size, normal wall thickness, normal globalsystolic function, calculated EF of 60 %. 2. Right ventricular cavity size is normal, global systolic RV functionis normal. 3. The aortic valve is calcified and sclerotic, moderate stenosis andmild to moderate regurgitation. The aortic valve peak velocity is 3.2 m/s,the peak gradient is 42 mmHg, and the mean gradient is 26 mmHg. The aorticvalve area is 1.30 cm? ? ? with a dimensionless index of 0.38. The strokevolume index is 50.8 ml/m? ? ?. 4. No pericardial effusion. Comparison Compared to prior exam images and report of 08/05/23: The aortic stenosis severity is similar to prior study in the [facility]. Chamber Sizes and Function Normal left ventricular size, normal wall thickness, normal globalsystolic function, calculated EF of 60 %. No resting regional wall motionabnormality visualized. Left atrial size is normal. Left atrial pressureis normal. Right ventricular cavity size is normal, global systolic RVfunction is normal. RV wall thickness is normal. The right atrium isnormal. The pulmonary artery is of normal size and origin. The sinus ofValsalva is normal sized. The ascending aorta is normal sized. Valves, RV Pressures and Diastolic Function The aortic valve is calcified and sclerotic, moderate stenosis and mild tomoderate regurgitation. The mitral valve is normal in structure, no mitralregurgitation. Normal diastolic function. The tricuspid valve is normal instructure. Tricuspid regurgitation is trace regurgitation. The pulmonicvalve is normal. No pulmonary regurgitation. Masses, Effusion, Shunts There is no pericardial effusion. The inferior vena cava is normal sized,respiratory size variation greater than 50%. No left to right shunting wasdetected by limited color flow Doppler interrogation of the interatrialseptum. MEASUREMENTS AND CALCULATIONS 2-D Measurements and LV Function: LVID (d) 3.6 cm Planimetered EF 60 % LVID (s) 2.7 cm LV FS% (2D) 25 % IVS (d) 0.9 cm LVOT diameter 2.1 cm LVPW (d) 0.9 cm HR 62 bpm Ao Sinus 3.3 cm LA Vol index 21 ml/m2 Asc Ao 3.6 cm RV Max 4C (d) 4.8 cm Diastology: Mitral Tissue Doppler E Peak 0.6 m/s e', Septum 0.08 m/s A Peak 0.6 m/s e', Lateral 0.11 m/s E/A 1.0 E/e' Average 6.48 DT 229 msec Aortic Valve: Vmax 3.2 m/s INDIGO (V) 1.32 cm? ? ? AI P 1/2 668 msec VTI 0.74 m INDIGO (I) 1.30 cm? ? ? LVOT V max 1.2 m/s Max PG 42 mmHg LVOT VTI 0.28 m Mean PG 26 mmHg SV 97 ml Dim Index 0.38 SV index 51 ml/m? ? ? CO 6.0 l/min CI 3.2 l/min/m? ? ? Mitral Valve: MVA 3.3 cm? ? ? MV P 1/2 66 msec Tricuspid Valve and estimated PA pressures: TAPSE 2.9 cm . This study was interpreted by an [facility] accredited facility. Final King Harrell MD ECHO ORD * SCAN-RADIOLOGY REPORT (05/31/2024 12:00 AM CDT) Anatomical Region Laterality Modality Other Scanner OTHER * CT ABDOMEN PELVIS WO (06/27/2023 7:37 AM CDT) Anatomical Region Laterality Modality Abdomen, Pelvis, AORTA, LIVER, SPLEEN Computed Tomography 06/27/2023 10:1 7 AM CDT Narrative 06/27/2023 10:17 AM CDT For Patients: ??As a result of the 21st Century Cures Act, medical imaging exams and procedure reports are released immediately into your electronic medical record. ??You may view this report before your referring provider. ??If you have questions, please contact your health care provider. Indication: Flank pain Technique: Noncontrast CT abdomen and pelvis. Please note that all CT scans at this facility use dose modulation, iterative reconstruction, and/or weight-based dosing when appropriate to reduce radiation dose to as low as reasonably achievable. Comparison: 09/02/2004 Findings: Mild scarring within the lateral inferior lingula. No pleural effusion. Mild scarring also present within the right middle lobe. No free intraperitoneal air. Small hiatal hernia noted measuring 2.1 cm. Mild diffuse low attenuation of the hepatic parenchyma. The liver measures 21 cm. The gallbladder is normal without calcified stones or biliary obstruction. Normal spleen. Pancreas normal. Bilateral adrenal adenomas measuring 2.2 cm on the right and 3.0 cm on the left. Normal kidneys, ureters and bladder. No stones. No hydronephrosis or inflammatory change. Prostate calcifications. The prostate is not enlarged. No bowel obstruction or free fluid. No abscess. No diverticulitis. Ectatic aorta measuring 2.7 cm with atherosclerotic changes. Normal appendix. No adenopathy. No fracture. Mild degenerative disc disease mid lumbar spine. Impression: Hepatomegaly and mild diffuse hepatic steatosis. No ascites or splenomegaly. No renal, ureteral or bladder stone. Benign bilateral adrenal adenomas. Please note that all CT scans at this facility use dose modulation, iterative reconstruction, and/or weight-based dosing when appropriate to reduce radiation dose to as low as reasonably achievable. Dictated by Emmanuel Carranza MD @ Jun 27 2023 10:17AM (Electronically Signed) ?? Procedure Note Emmanuel Carranza MD - 06/27/2023 For Patients: As a result of the Cures Act, medical imagingexams and procedure reports are released immediately into your electronicmedical record. You may view this report before your referring provider.If you have questions, please contact your health care provider. Indication: Flank pain Technique: Noncontrast CT abdomen and pelvis. Please note that all CT scans at this facility use dose modulation,iterative reconstruction, and/or weight-based dosing when appropriate toreduce radiation dose to as low as reasonably achievable. Comparison: 09/02/2004 Findings: Mild scarring within the lateral inferior lingula. No pleural effusion.Mild scarring also present within the right middle lobe. No freeintraperitoneal air. Small hiatal hernia noted measuring 2.1 cm. Milddiffuse low attenuation of the hepatic parenchyma. The liver measures 21cm. The gallbladder is normal without calcified stones or biliaryobstruction. Normal spleen. Pancreas normal. Bilateral adrenal adenomasmeasuring 2.2 cm on the right and 3.0 cm on the left. Normal kidneys,ureters and bladder. No stones. No hydronephrosis or inflammatory change.Prostate calcifications. The prostate is not enlarged. No bowelobstruction or free fluid. No abscess. No diverticulitis. Ectatic aortameasuring 2.7 cm with atherosclerotic changes. Normal appendix. Noadenopathy. No fracture. Mild degenerative disc disease mid lumbar spine. Impression: Hepatomegaly and mild diffuse hepatic steatosis. No ascites orsplenomegaly. No renal, ureteral or bladder stone. Benign bilateral adrenal adenomas. Please note that all CT scans at this facility use dose modulation,iterative reconstruction, and/or weight-based dosing when appropriate toreduce radiation dose to as low as reasonably achievable. Dictated by Emmanuel Carranza MD @ Jun 27 2023 10:17AM (Electronically Signed) Breezy Glynn MD CT * (ABNORMAL) LIPID PANEL W REFLEX MEASURED LDL (04/23/2022 9:05 AM CDT) CHOLESTEROL,TOTAL 208(H) 100 - 199 mg/dL 04/23/2022 6:10 PM CDT [facility] TRIGLYCERIDES 67 <150 mg/dL 04/23/2022 6:10 PM CDT [facility] HDL CHOLESTEROL 39(L) >40 mg/dL 6:10 PM CDT [facility] NON-HDL CHOLESTEROL 169(H) <145 mg/dl 04/23/2022 6:10 PM CDT [facility] CHOL/HDL RATIO 5.33(H) <4.50 04/23/2022 6:10 PM CDT [facility] LDL CHOLESTEROL 156(H) <=130 mg/dL 04/23/2022 6:10 PM CDT [facility] VLDL CHOLESTEROL 13 <=30 mg/dL 04/23/2022 6:10 PM CDT [facility] TR[facility] LAB[facility] PROVIDER ORDERED STATUS RANDOM 04/23/2022 6:10 PM CDT [facility] Blood BLOOD SPECIMEN / Unknown Venipuncture / Unknown 04/23/2022 9:05 AM CDT 04/23/2022 9:06 AM CDT Breezy Glynn MD CHEMISTRY [email or web address] [address] [place] [address], [place] from Last 3 Months or Most Recently Relevant to Health Maintenance Advance Directives * Full Code (Latest Code Status on File) Date Activated Date Inactivated Comments 03/25/2020 5:53 AM 03/25/2020 2:12 PM * Full Code Date Activated Date Inactivated Comments 05/06/2012 7:48 AM 05/09/2012 2:50 AM * Full Code Date Activated Date Inactivated Comments 04/09/2012 10:39 AM 04/09/2012 3:29 PM * Full Code Date Activated Date Inactivated Comments 10/26/2009 7:00 AM 10/26/2009 12:03 PM * Full Code Date Activated Date Inactivated Comments 08/31/2008 2:16 AM 09/03/2008 1:13 PM Care Teams Risk Management Internship Relationship Specialty Start [place] [address] [place] [address] PCP - General Family Practice 12/25/21 Elias Jules Internal Medicine 12/01/12 Víctor Gallego MD Cardiovascular Disease 12/01/12
--- OUTSIDE RECORDS SUMMARY | 2024-07-13 19:50 | XMS_ITS ---
Author Organization [facility] Address [address] [place] [address] Care Team Providers Care Concrete Worker Name Role Phone Unavailable Unavailable Unavailable Surgery Details Not on file Complications Check Surgery Details section. Procedure Estimated Blood Loss Check Surgery Details section. Procedure Findings Check Surgery Details section. Procedure Specimens Taken Check Surgery Details section.
--- OUTSIDE RECORDS SUMMARY | 2024-07-13 19:50 | XMS_ITS | Clinical Summary ---
Author Organization [facility] Address [address] [place] [address] Care Team Providers Care Blueberry Grower Name Role Phone Elsewhere, Pcp Primary Care Provider Unavailabl e Source Comments Patient records contain information from all sites at [facility]. For routine questions regarding patient records, call [phone] during business hours, M-F 8:00 AM - 5:00 PM Central Time. 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 Encounters Date Type Department Care Team Description 07/03/2024 Orders Only Division of Pulmonary Medicine in [place], [place] [address] [place] [address] [facility], MD Prabhakar Asthma Mild Intermittent (HCC) 06/26/2024 Clinical Communication Department of Family Medicine, [address] in [place], [place] [address] [place] [phone] Elsewhere, Pcp 05/06/2024 Clinical Communication Department of Community Internal Medicine in [place], [place] [address] [facility] [place] [phone] Elsewhere, Pcp PCP Elsewhere from Last 3 Months Family History Medical History Relation Name Comments Coronary artery disease Father Relation Name Status Comments Father Social History Tobacco Use Types Packs/Day Years [...] on file Legal Sex Male 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 Gender Identity Not on file Sexual Orientation Not on file Last Filed Vital Signs Vital Sign Reading Time Taken Comments Blood Pressure 165/88 07/11/2023 4:54 PM DIGITAL MANAGER Pulse 65 07/11/2023 4:54 PM DIGITAL MANAGER Temperature 36.8 ??C (98.2 ??F) 07/11/2023 3:29 PM CS T Respiratory Rate 18 07/11/2023 4:54 PM DIGITAL MANAGER Oxygen Saturation 98% 07/11/2023 4:54 PM DIGITAL MANAGER Inhaled Oxygen Concentration - - Weight 84.9 kg (187 lb 2.7 oz) 07/11/2023 3:31 P M DIGITAL MANAGER Height 172 cm (5' 7.72) 05/21/2014 11:37 AM CDT Body Mass Index 28.7 05/21/2014 11:37 AM CDT Plan of Treatment Upcoming Encounters Date Type Department Care Team (Latest Contact Info) Description 07/24/2024 11:00 AM DIGITAL MANAGER Clinical Communication Virtual Review in [place], [place] [address] [place] [address] 07/27/2024 10:50 AM DIGITAL MANAGER Appointment Department of Laboratory Medicine and Pathology, [facility], in [place], [place] [address] [place] [address] Albin Mercer M.D. [address] [place] [address] 07/27/2024 12:00 PM DIGITAL MANAGER Appointment Department of Radiology, [facility], in [place], [place] [address] [place] [address] Albin Mercer M.D. [address] [place] [phone] 07/27/2024 1:00 PM DIGITAL MANAGER Diagnostic Division of Pulmonary Medicine in [place], [place] [address] [place] [address] Albin Mercer M.D. [address] [place] [phone] 07/27/2024 1:30 PM DIGITAL MANAGER Diagnostic Division of Pulmonary Medicine in [place], [place] [address] [place] [address] Albin Mercer M.D. [address] [place] [phone] 07/28/2024 8:00 AM DIGITAL MANAGER Comprehensive Visit Division of Pulmonary Medicine in [place], [place] [address] [place] [address] Albin Mercer M.D. [address] [place] [phone] Health Maintenance Due Date Last Done Comments CT Colonography 1960 Cologuard 1960 Diabetic Office Visit with Foot Exam 1960 FIT 1960 HIV Screening 1960 Hepatitis C Screening 1960 Office Visit for Blood Pressure Check / Re-check 1960 Urine Albumin 1960 Pneumococcal vaccine (65+ years) (1 of 2 - PCV) 1965 Zoster Vaccines (1 of 2) 2009 Dilated Eye Exam 12/19/2013 12/19/2012 DTaP,Tdap,and Td Vaccines (2 - Td or Tdap) 03/27/2016 03/27/2006, 03/27/2006 Hepatitis B Vaccines (1 of 3 - Risk 3-dose series) 2019 Colonoscopy 09/04/2020 09/04/2010 (Perf ormed elsewhere) Colorectal Cancer Screening 09/04/2020 Lipid (Cholesterol) Screening 04/23/2023 04/23/2022, 10/18/2021, 08/24/2021, Additional history exists Depression Screening (Annual PHQ-2) 09/02/2023 Fall Risk Screen (Annual) 2024 COVID-19 Vaccine ( season) 2024 Influenza Vaccine (#1) 2024 06/30/2008, 2006 Hemoglobin A1C 06/30/2024 03/30/2024, 12/0 12/2022, 08/24/2021, Additional history exists Potassium Level 07/11/2024 07/11/2023, 11/01, 09/19/2022, Additional history exists Sodium Level 07/11/2024 07/11/2023, 11/01, 09/19/2022, Additional history exists Creatinine Level (Kidney Function Test) 01/30/2025 01/31/2024, 07/11/2023, 11/26/2022, Additional history exists IPV Vaccines Aged Out No longer eligi ble based on patient's age to complete this topic Procedures Procedure Name Priority Date/Time Associated Diagnosis Comments BASIC METABOLIC PANEL, S/P STAT 07/11/2023 3:46 PM DIGITAL MANAGER HEMOGLOBIN A1C, B Routine 12/18/2012 9:3 5 AM CDT LIPID PANEL, S Routine 12/18/2012 9:35 AM CDT from Last 3 Months or Most Recently Relevant to Health Maintenance Results * (ABNORMAL) Basic Metabolic Panel (07/11/2023 3:46 PM DIGITAL MANAGER) Potassium, P 4.5 3.6 - 5.2 mmol/L 07/11/2023 4:16 PM DIGITAL MANAGER NPRG Sodium, P 137 135 - 145 mmol/L 07/11/2023 4:16 PM DIGITAL MANAGER NPRG Chloride, P 103 98 - 107 mmol/L 07/11/2023 4:16 PM DIGITAL MANAGER NPRG Bicarbonate, P 21(L) 22 - 29 mmol/L 07/11/2023 4:16 PM DIGITAL MANAGER NPRG Anion Gap, P 13 7 - 15 07/11/2023 4:16 PM DIGITAL MANAGER NPRG BUN (Blood Urea Nitrogen), P 17 8 - 24 mg/dL 07/11/2023 4:16 PM DIGITAL MANAGER NPRG Creatinine 0.93 0.74 - 1.35 mg/dL 07/11/2023 4:16 PM DIGITAL MANAGER NPRG Estimated GFR (eGFR) >90 >=60 mL/min/BSA 07/11/2023 4:16 PM DIGITAL MANAGER NPRG Comment: Estimated GFR calculated using the 2020 CKD_EPI creatinine equation. Calcium, Total, P 9.8 8.8 - 10.2 mg/dL 07/11/2023 4:16 PM DIGITAL MANAGER NPRG Glucose, P 115 70 - 140 mg/dL 07/11/2023 4:16 PM DIGITAL MANAGER NPRG Blood (Blood, Venous) 07/11/2023 3:46 PM DIGITAL MANAGER 07/11/2023 3:54 PM DIGITAL MANAGER us Chris Arriaza M.D. LAB BLOOD ADD-ON Final Resul t [facility] [address] [place] [address], [facility] NPRG [facility] [address] [place] [address] * (ABNORMAL) Lipid Panel (12/18/2012 9:35 AM CDT) Cholesterol, Total 266(H) SeeComment MG/DL [facility] Comment: Reference Range: ? NCEP guidelines ? [...] ? Cholesterol, HDL, S 42 SeeComment MG/DL [facility] Comment: Reference Range: ? NCEP guidelines ? (ages 18y and up) ? Low: <40 ? Normal: 40-59 ? High : > or =60 ? Calculated LDL 200(H) SeeComment MG/DL [facility] Comment: The markedly elevated LDL level is suggestive ? of familial hypercholesterolemia (FH) or another related ? genetic disease, familial defective [id number] (FDB). ? Molecular genetic testing for FH and FDB is available ? through [facility]: FH/ADH Genetic Reflex ? Panel (test 68504). LDL cholesterol can be markedly ? increased [...] ? Cholesterol, Non-HDL, Calculated 224(H) SeeComment MG/DL [facility] Comment: Reference Range: ? NCEP guidelines ? Desirable: <130 ? Borderline high: 130-159 ? High: 160-189 ? Very high: > or =190 ? 12/18/2012 9:35 AM CDT 12/18/2012 9:35 AM CDT us Paul Liang M.D. LAB BLOOD ADD-ON Final Resu lt Performing Organization Address City/[facility]/ZIP Co de Phone Number [facility] [address] * (ABNORMAL) Hemoglobin A1c (12/18/2012 9:35 AM CDT) Hemoglobin A1c, B 6.1(H) 4.0 - 6.0 % [facility] 12/18/2012 9:35 AM CDT 12/18/2012 9:35 AM CDT us Paul Liang M.D. LAB BLOOD ADD-ON Final Resu lt Performing Organization Address City/[facility] Co de Phone Number [facility] [address] from Last 3 Months or Most Recently Relevant to Health Maintenance Insurance MEDICARE Care Teams Blueberry Grower Relationship Specialty Start Date End Date Elsewhere, Pcp PCP - General Internal Medicine 05/06/24
--- OUTSIDE RECORDS SUMMARY | 2024-07-13 19:51 | XMS_ITS | Referral Summary ---
Author Organization [facility] Address [address] [place] [address] Care Team Providers Care Art Historian Name Role Phone Clinic, [facility] Primary Care Provider Allergies Active Allergy Reactions Criticality Noted Date Comments Aripiprazole Other (See Comments) 05/07/2013 Had a sore throat and felt like he was going to pass out Azelastine Other (See Comments) 06/22/2019 Fluoxetine Other (See Comments) 12/23/2013 [place] suicidal/agitated with one dose Lisinopril Other (See Comments) 01/06/2018 Joint pain fatigue weakness - even a light ladder Morphine Nausea 03/23/2020 Prednisone Other (See Comments) 10/20/2014 Suicidal; too agitated Sulfa Antibiotics 09/27/2019 Tizanidine Other (See Comments) 12/28/2019 Legs gave out from underneath him. Won't take again. 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
--- OUTSIDE RECORDS SUMMARY | 2024-07-13 19:51 | XMS_ITS | Clinical Summary ---
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
[2024-07-13 20:00] VITALS: BP 137/84; PULSE 77; RESP 16; TEMP 36.8; O2SAT 98
== END 2024-07-13 20:04 | disposition home or self-care (01) ==
PROVIDERS: Emergency Provider Emergency Medicine Emergency Medical Services; PCP Family Medicine
DX: R42 Dizziness and giddiness (principal)
CPT/HCPCS: 99283; 99284

== ENCOUNTER 2025-05-15 22:07 | Emergency (ER) | payer MEDICARE, MEDICAID, SELFPAY ==
--- OUTSIDE RECORDS SUMMARY | 2025-05-15 22:09 | XMS_ITS | Clinical Summary ---
Author Organization [employer] [facility] Address [address] [place] [id number] Care Team Providers Care Wirer [address] Light Name Role Phone Elias Jules Shun Unavailable Víctor Gallego MD Unavailable Gwendolyn Breezy Pate MD Primary Care Provider [phone] Allergies Active Allergy Reactions Criticality Noted Date Comments Aripiprazole Other - Describe In Comment Field 05/07/2013 Had a sore throat and felt like he was going to pass out Other Reaction(s): Other (see comments) Had a sore throat and felt like he was going to pass out Azelastine Other - Describe In Comment Field Low 06/22/2019 Other Reaction(s): Other (see comments) Fluoxetine Other - Describe In Comment Field High 12/23/2013 [place] suicidal/agitated with one dose- wanted to jump out of the car Other Reaction(s): Other (see comments) [place] suicidal/agitated with one dose- wanted to jump out of the car [place] suicidal/agitated with one dose [place] suicidal/agitated with one dose- wanted to jump out of the car [place] suicidal/agitated with one dose Lisinopril Other - Describe In Comment Field High 01/06/2018 Joint pain fatigue weakness - even a light ladder Other Reaction(s): Other (see comments) Joint pain fatigue weakness - even a light ladder Joint pain fatigue weakness - even a light ladder Joint pain fatigue weakness - even a light ladder Morphine Nausea Only 03/23/2020 Prednisone Other - Describe In Comment Field High 10/20/2014 Suicidal; too agitated Other Reaction(s): Other (see comments) Suicidal; too agitated Sulfa (Sulfonamide Antibiotics) Hives 10/16/2005 Tizanidine Other - Describe In Comment Field 12/28/2019 Legs gave out from underneath him. Won't take again. Other Reaction(s): Other (see comments) Legs gave out from underneath him. Won't take again. Medications aspirin chewable 81 mg chewable tabletIndications: Hypertension, unspecified type,Hyperlipidemi a, unspecified hyperlipidemia type Chew 1 Tablet (81 mg) by mouth once daily. 90 Tablet 3 09/19/19 25 Active enalapril 5 mg tabletIndications: Hypertension, unspecified type Take 1 Tablet (5 mg) by mouth two times daily. 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 90 Tablet 2 12/05/19 25 Active ALPRAZolam 0.5 mg tabletIndications: Anxiety TAKE 1 TABLET(0.5 MG) BY MOUTH AT BEDTIME 90 Tablet 02/09/20 25 Active amitriptyline 50 mg tabletIndications: Insomnia, unspecified type Take 1 Tablet (50 mg) by mouth once daily. 90 Tablet 3 02/23/20 25 Active Additional Information Patient taking differently: 25 mgOral DAILY, Reported on 03/22/2025 semaglutide (OZEMPIC) 1 mg/dose (4 mg/3 mL) subcutaneous penIndications:Typ e 2 diabetes mellitus with retinopathy of right eye, without long-term current use of insulin, macular edema presence unspecified, unspecified retinopathy severity (HC) Inject 1 mg subcutaneous once weekly. 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 30 Tablet 11 03/22/20 25 Active fenofibrate 160 mg tabletIndications: Hyperlipidemia, unspecified hyperlipidemia type Take 1 Tablet (160 mg) by mouth once daily with a meal. 90 Tablet 3 05/12/20 25 Active Active Problems Patient Care Coordination No te [...] zoloft wellbutrin Celexa, Effexor, Cymbalta, remeron Depakote, [place], seroquel zyprexa Hyperlipidemia 10/20/2009 Overview (11/23/2010): Intolerable [...] Encounters Date Type Department Care Team Description 05/13/2025 Telephone [facility] [address] [place] [address] Breezy Glynn MD Procedure (Orders for procedure.) 05/12/2025 Telephone [facility] [address] [place] [address] Breezy Glynn MD Follow Up (Questions ) 05/11/2025 Orders Only [facility] Scanner 1 scan: (1-Ord) [facility], 05/11/2025 05/06/2025 Telephone [facility] [address] [place] [address] Wellington Jacobson MD Appointment 04/21/2025 Telephone [facility] [address] [place] [address] Breezy Glynn MD Medication Management (Medication Chart) 03/26/2025 Refill [facility] [address] [place] [address] Breezy Glynn MD Refill Request (Ozempic) 03/24/2025 Telephone [facility] [address] [place] [address] Breezy Glynn MD Prior Authorization (bempedoic acid 180 mg tab Approved March 10, 2025 to September 01, 2099) 03/24/2025 Telephone [facility] [address] [place] [address] Breezy Glynn MD Prior Authorization (bempedoic acid 180 mg tab) 03/22/2025 8:45 AM CDT Office Visit [facility] [address] [place] [address] Breezy Glynn MD Follow Up 03/22/2025 Telephone [facility] [address] [place] [address] Breezy Glynn MD Refill Request (Nexletol 180mg approval 03/10/2025- until further notice) 03/22/2025 Travel 03/12/2025 Telephone [facility] [address] [place] [address] Estela Burnette MD Results 03/09/2025 7:30 AM CDT Office Visit [facility] [address] [place] [address] Breezy Glynn MD Follow Up (Questions on a test results) 03/08/2025 2:00 PM CDT Office Visit [facility] [address] [place] [address] Estela Burnette MD Follow Up (carotid disease one year follow up) 03/08/2025 12:35 PM CDT - 03/08/2025 11:59 PM CDT Hospital Encounter [facility] [address] [place] [address] Estela Burnette MD Carotid stenosis, left 03/08/2025 Travel 02/22/2025 Telephone [facility] [address] [place] [address] Breezy Glynn MD Refill Request (Amitriptyline/) from Last 3 Months Immunizations Immunization Administration Dates Next Due Influenza Virus, Unspecified 06/30/2008,09/27/19 07 Influenza, IIV3 (Age 6-35 mos) 06/30/2008 Td (Age >=7 Years) 09/02/2006,03/27/2006 Td, Preservative Free (age >= 7 Years) 5(),03/27/2006 Tdap 03/27/2006 Family History Medical History Relation [...] Cigarettes 0.1 31.7 0 09/02/1976 - 04/27/2008 Passive Smoke Exposure: Past Smokeless Tobacco: Never Tobacco Cessation:Counseling Given: Not Answered Alcohol Use [...] is your housing situation today? 1 06/30/2024 Interpersonal Safety Answer Date Record ed Are you being hit, kicked, p ushed or yelled at (see row info)? No 12/06/2024 Interpersonal Safety Abuse 12 - 18 Not on file 12/06/2024 Interpersonal Safety Ambulatory Vulnerability No t on file 12/06/2024 Utilities Answer Date Recorded Do you have trouble paying f or utilities (for example, heat, electricity, water, phone)? 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 Gender Identity Not on file Sexual Orientation Not on file Occupation Industry Job Start Date Job End Date DISABLED Not on file Not on file Not on file Obstetrics History Last Filed Vital Signs Vital Sign Reading Time Taken Comments Blood Pressure 122/74 03/22/2025 8:52 AM CDT Pulse 66 03/22/2025 8:52 AM CDT Temperature 36.8 C (98.2 F) 12/06/2024 3:31 PM CDT Respiratory Rate 21 12/06/2024 3:31 PM CDT Oxygen Saturation 97% 03/08/2025 1:52 PM CDT Inhaled Oxygen Concentration - - Weight 85.7 kg (189 lb) 03/09/2025 7:32 AM CDT Height 172.7 cm (5' 8) 03/22/2025 8:52 AM CDT Body Mass Index 28.74 03/08/2025 1:52 PM CDT Plan of Treatment Health Maintenance Due Date Last Done Comments Hepatitis C screening for age 18-79 1977 Pneumococcal series for age 50+ (1 of 2 - PCV) 1978 Zoster (shingles) series for age 50+ (1 of 2) 2009 Tetanus booster 09/02/2016 09/02/2006, 03/03, 03/27/2006, Additional history exists RSV vaccine for adults or (1 - Risk 60-74 years 1-dose series) 2019 AAA screening age 65-74 2024 06/27/20 23, 10/27/2019, 09/02/2004 COVID-19 vaccine series ( - 2023- season) 2025 Influenza Vaccine (#1) 2025 8, 06/30/2008, 09/27/2006 Colonoscopy through age 75 05/17/2025 05/17/2015 Medicare Wellness for age 65+ 07/01/2025 06/30/2024, 06/03/2023, 03/12/2022, Additional history exists BMI (ht and wt on same day) for age 18+ 03/08/2026 03/08/2025, 03/04/2024, 08/14/2023, Additional history exists Depression screening for age 12+ 03/09/2026 03/09/2025, 07/01/2024, 06/30/2024, Additional history exists Lipids for age 45-75 03/09/2030 03/09/2025, 04/23/2022, 10/18/2021, Additional history exists Hepatitis B series for 19+ Aged Out N o longer eligible based on patient's age to complete this topic Medical Devices Implanted Type Area Worm Farmer Device Identifier Shelf Expiration Date Model / Serial / Lot Log [id number] - Carolyn [id number] Lens Iol - 1 - Lens Iol 23.5 Tecnis Implanted:Qty: 1 on 10/26/2009 at [facility] Left: Eye [employer] [id number] / [id number] / Log [id number] - Carolyn [id number] Lens Iol - 1 - Lens Iol 22.5 Tecnis Implanted:Qty: 1 on 04/09/2012 by Jorge A Enriquez MD at [facility] Right: Eye [employer] 11/07/[id number] / [id number] / Procedures Procedure Name Priority Date/Time Associated Diagnosis Comments SCAN-EYE EXAM 05/11/2025 12:00 AM CDT LIPID PANEL W REFLEX MEASURED LDL Routine 03/09/2025 8:21 AM CDT Stenosis of carotid artery, unspecified laterality Statin intolerance US CAROTID DUPLEX BILATERAL Routine 03/08/2025 1:21 PM CDT Carotid stenosis, left CT ABDOMEN PELVIS WO Routine 06/27/2023 7:37 AM CDT Acute right flank pain from Last 3 Months or Most Recently Relevant to Health Maintenance Results * SCAN-EYE EXAM (05/11/2025 12:00 AM CDT) us Scanner OTHER Final Result * (ABNORMAL) LIPID PANEL W REFLEX MEASURED LDL (03/09/2025 8:21 AM CDT) CHOLESTEROL, TOTAL 247(H) <200 mg/dL [facility] HDL CHOLESTEROL 39(L) > OR = 40 mg/dL [facility] TRIGLYCERIDES 170(H) <150 mg/dL [facility] LDL-CHOLESTEROL 176(H) mg/dL (calc) [facility] Comment: Reference range: <100 Desirable range <100 mg/dL for primary prevention; <70 mg/dL for patients with CHD or diabetic patients with > or = 2 CHD risk factors. LDL-C is now calculated using the Fazal-Greenwood calculation, which is a validated novel method providing better accuracy than the Friedewald equation in the estimation of LDL-C. Fazal CORDOVA et al. SUSHMA. 2013;310(19): 0236-6493 (http://education.RatePoint.Contapps/faq/WKD342) CHOL/HDLC RATIO 6.3(H) <5.0 (calc) [facility] NON HDL CHOLESTEROL 208(H) <130 mg/dL (calc) [facility] Comment: For patients with diabetes plus 1 major ASCVD risk factor, treating to a non-HDL-C goal of <100 mg/dL (LDL-C of <70 mg/dL) is considered a therapeutic option. Blood BLOOD SPECIMEN / Unknown 03/09/2025 8:21 AM CDT 03/09/2025 8:22 AM CDT us Estela Burnette MD CHEMISTRY Final Re sult [facility] [address] [place] [address], [facility] [address] [facility] [place] [address] * US CAROTID DUPLEX BILATERAL (03/08/2025 1:21 PM CDT) Anatomical Region Laterality Modality CAROTID, NECK Ultrasound 03/08/2025 1:21 PM CDT Impressions 03/08/2025 2:33 PM CDT 1. Mild plaque formation, velocities consistent with less than 50% stenosis in the right internal carotid artery. 2. Severe plaque formation, velocities consistent with greater than 70% stenosis in the left internal carotid artery. 3. Flow within the vertebral arteries is antegrade. Narrative 03/08/2025 2:33 PM CDT For Patients: As a result of the Century Cures Act, medical imaging exams and procedure reports are released immediately into your electronic medical record. You may view this report before your referring provider. If you have questions, please contact your health care provider. EXAM: US CAROTID DUPLEX BILATERAL LOCATION: [facility] DATE: 03/08/2025 INDICATION: Carotid Stenosis, Left COMPARISON: None. TECHNIQUE: Duplex exam performed utilizing 2D lord-scale imaging, Doppler interrogation with color-flow and spectral waveform analysis. The percent diameter stenosis is determined using Updated Recommendations for Carotid Stenosis Interpretation Criteria from [facility]. FINDINGS: RIGHT: Mild plaque at the bifurcation. The peak systolic velocity in the ICA is less than 180 cm/sec, consistent with less than 50% stenosis. Normal velocities in the ECA. Antegrade flow within the vertebral artery. LEFT: Severe plaque at the bifurcation. The peak systolic velocity in the ICA is greater than 230 cm/sec, consistent with greater than 70% stenosis. Normal velocities in the ECA. Antegrade flow within the vertebral artery. VELOCITY CHART: CCA Right: 77/22 cm/s Left: 91/26 cm/s ICA Right: 100/32 cm/s Left: 254/81 cm/s ECA Right: 124/26 cm/s Left: 134/22 cm/s ICA/CCA PSV Ratio Right: 1.3 Left: 2.8 Procedure Note Gorge Clark MD - 03/08/2025 For Patients: As a result of the Cures Act, medical imagingexams and procedure reports are released immediately into your electronicmedical record. You may view this report before your referring provider.If you have questions, please contact your health care provider. EXAM: US CAROTID DUPLEX BILATERAL LOCATION: [facility] DATE: 03/08/2025 INDICATION: Carotid Stenosis, Left COMPARISON: None. TECHNIQUE: Duplex exam performed utilizing 2D lord-scale imaging, Dopplerinterrogation with color-flow and spectral waveform analysis. The percentdiameter stenosis is determined using Updated Recommendations for CarotidStenosis Interpretation Criteria from [facility] Vascular Testing. FINDINGS: RIGHT: Mild plaque at the bifurcation. The peak systolic velocity in theICA is less than 180 cm/sec, consistent with less than 50% stenosis.Normal velocities in the ECA. Antegrade flow within the vertebral artery. LEFT: Severe plaque at the bifurcation. The peak systolic velocity in theICA is greater than 230 cm/sec, consistent with greater than 70% stenosis.Normal velocities in the ECA. Antegrade flow within the vertebralartery. VELOCITY CHART: CCA Right: 77/22 cm/s Left: 91/26 cm/s ICA Right: 100/32 cm/s Left: 254/81 cm/s ECA Right: 124/26 cm/s Left: 134/22 cm/s ICA/CCA PSV Ratio Right: 1.3 Left: 2.8 IMPRESSION: 1. Mild plaque formation, velocities consistent with less than 50%stenosis in the right internal carotid artery. 2. Severe plaque formation, velocities consistent with greater than 70%stenosis in the left internal carotid artery. 3. Flow within the vertebral arteries is antegrade. us Estela Burnette MD US Final Re sult * CT ABDOMEN PELVIS WO (06/27/2023 7:37 AM CDT) Anatomical Region Laterality Modality Abdomen, Pelvis, AORTA, LIVER, SPLEEN Computed Tomography 06/27/2023 10:1 7 AM CDT Narrative 06/27/2023 10:17 AM CDT For Patients: As a result of the Cures Act, medical imaging exams and procedure reports are released immediately into your electronic medical record. You may view this report before your referring provider. If you have questions, please contact your health [...] @ Jun 27 2023 10:17AM (Electronically Signed) Procedure Note Emmanuel Carranza MD - 06/27/2023 [...] 10:17AM (Electronically Signed) Breezy Glynn MD CT Final Resul t from Last 3 Months or Most Recently Relevant to Health Maintenance Insurance MEDICARE PB ONLY MEDICARE PART B HB ONLY MEDICARE PART A HB ONLY MEDICAID MEDICARE [place] ONLY MEDICAID MEDICARE PART B HB ONLY MEDICAID MEDICARE PB ONLY [facility] Advance Directives * Full Code (Latest Code [...] 2:16 AM 09/03/2008 1:13 PM Care Teams [address] Relationship Specialty Start [place] [address] [place] [address] PCP - General Family Practice 12/25/21 Elias Jules Internal Medicine 12/01/12 Víctor Gallego MD Cardiovascular Disease 12/01/12
--- OUTSIDE RECORDS SUMMARY | 2025-05-15 22:09 | XMS_ITS | Clinical Summary ---
Author Organization [facility] Address [address] [place] [address] Care Team Providers Care Pre School Teacher Name Role Phone Elsewhere, Pcp Primary Care Provider Unavailabl e Source Comments Patient records contain information from all sites at [facility]. For routine questions regarding patient records, call [phone] during business hours, M-F 8:00 AM - 5:00 PM Central Time. Record requests for emergency care only can be directed to [phone] at any time.[facility] Allergies Active Allergy Reactions Criticality Noted Date Comments Aripiprazole Other (see comments) 05/07/2013 Had a sore throat and felt like he was going to pass out Azelastine Other (see comments) Low 06/22/2019 Other Reaction(s): Other (see comments) Fluoxetine Other (see comments) High 12/23/2013 [place] suicidal/agitated with one dose- wanted to jump out of the car Lisinopril Other (see comments) High 01/06/2018 Joint pain fatigue weakness - even a light ladder Morphine Nausea Only 03/23/2020 Prednisone Other (see comments) High 10/20/2014 Suicidal; too agitated Sulfa (Sulfonamide Antibiotics) Hives only, no other systemic symptoms 09/27/2019 Tizanidine Other (see comments) 12/28/2019 Legs gave out from underneath him. Won't take again. Medications ALPRAZolam (Xanax) 0.5 mg tablet Take 1 tablet by mouth at bedtime as needed. 4 Active metFORMIN XR (Glucophage-XR) 500 mg 24 hr tablet Take 1 tablet by mouth daily. 4 Active enalapril (Vasotec) 5 mg tablet Take 1 tablet by mouth 2 (two) times a day. 4 Active aspirin 81 mg chewable tablet Chew 1 tablet daily. 4 Active amitriptyline (ElaviL) 50 mg tablet Take 25 mg by mouth daily. 4 Active B complex-vitamin s (Balanced B-50) tablet Take 1 tablet by mouth daily. Active zinc gluconate 50 mg tablet Take 50 mg by mouth daily with morning meal. Active cholecalciferol (Vitamin D3) 125 mcg (5,000 Unit) capsule Take 125 mcg by mouth daily. Active Combigan 0.2-0.5 % ophthalmic solution Administer 1 drop into the left eye 2 (two) times a day. 5 Active donepeziL (Aricept) 10 mg tablet Take 10 mg by mouth daily. 2nd presciption 5 Active donepeziL (Aricept) 5 mg tablet Take 1 tablet (5 mg) by mouth once daily for 28 days, THEN 2 tablets (10 mg) once daily for 28 days. Take one tablet at bedtime. 5 Active latanoprost (Xalatan) 0.005 % ophthalmic solution Administer 1 drop into the left eye at bedtime. 5 Active ramelteon (Rozerem) 8 mg tablet Take 8 mg by mouth at bedtime. 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 bicuspid aortic valve Sleep Apnea Unspecified 05/05/2024 Overview (05/05/2024): pt states not a [...] zoloft wellbutrin Celexa, Effexor, Cymbalta, remeron Depakote, [place], seroquel zyprexa Depression/Jane/Bipolar NOS 05/21/2014 Overview (01/22/2017): Disorder Mood NOS Hypertension 05/21/2014 Overview (01/22/2017): Hypertension (HTN) NOS Hyperlipidemia 10/20/2009 Overview (05/05/2024): Intolerable of simvastatin (although he had done well on the lipitor in the past) Zetia is prescribed today to check labs in 3 months. Encounters Date Type Department Care Team Description 04/06/2025 Clinical Communication Department of Cardiovascular Medicine in [place], [place] [address] [place] [address] Drawing Hand Enzo M.D. Order Request 04/06/2025 Clinical Communication Department of Cardiovascular Medicine in [place], [place] [address] [place] [address] Drawing Hand Enzo M.D. Echo Move Up Request from Last 3 Months Immunizations Immunization Administration Dates Next Due Influenza, Unspecified 09/27/2006 Td Preservative Free (TENIVAC, DECAVAC) 03/27/20 06 Td, (Adult) Unspecified 09/02/2006 influenza trivalent vaccine (6 months and older) (PF) 06/30/2008 Family History Medical History Relation Name Comments Coronary artery disease Father Relation Name Status Comments Father Social History Tobacco Use Types Packs/Day Years Used Date Smoking Tobacco: Former Cigarettes Q uit: 1999 Passive Smoke Exposure: Past Smokeless Tobacco: Never Tobacco Cessation:Counseling Given: Not Answered Comments:01/07/25 - Quit over 20 -30 years ago Passive Exposure Comments:In my 20's Alcohol Use Standard Drinks/Week Comments Not Currently 0 (1 standard drink = 0.6 oz pur e alcohol) Sex and Gender Information Value Date Recorded Sex Assigned at Not on file 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 Sex 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 Gender Identity Not on file Sexual Orientation Not on file Last Filed Vital Signs Vital Sign Reading Time Taken Comments Blood Pressure 117/64 07/28/2024 7:46 AM AIRPLANE TUBE BUILDER Pulse 72 07/28/2024 7:46 AM AIRPLANE TUBE BUILDER Temperature 36.4 C (97.5 F) 07/28/2024 7:46 AM AIRPLANE TUBE BUILDER Respiratory Rate 18 07/11/2023 4:54 PM AIRPLANE TUBE BUILDER Oxygen Saturation 99% 07/28/2024 7:46 AM AIRPLANE TUBE BUILDER Inhaled Oxygen Concentration - - Weight 79.9 kg (176 lb 2.4 oz) 07/28/2024 7:46 A M AIRPLANE TUBE BUILDER Height 169.5 cm (5' 6.73) 07/28/2024 7:46 AM CS T Body Mass Index 27.81 07/28/2024 7:46 AM AIRPLANE TUBE BUILDER Plan of Treatment Upcoming Encounters Date Type Department Care Team (Latest Contact Info) Description 05/19/2025 8:00 AM CDT Clinical Communication Virtual Review in [place], [place] 200 [place] [address] 05/21/2025 7:15 AM CDT Appointment Department of Cardiovascular Diseases in [place], [place] [address] [place] [phone] Quan Reeves M.D., Ph.D. [address] [place] [phone] Discharge Disposition: Home or Self Care 05/21/2025 9:00 AM CDT Appointment Department of Vascular Medicine in [place], [place] [address] [place] [phone] Quan Reeves M.D., Ph.D. [address] [place] [phone] 05/21/2025 10:45 AM CDT Hospital Encounter Department of Cardiovascular Diseases in [place], [place] [address] [place] [address] Quan Reeves M.D., Ph.D. [address] [place] [phone] 05/21/2025 2:15 PM CDT Office Visit Department of Cardiovascular Medicine in [place], [place] [address] [place] [phone] Rupert Jacobs M.D. [address] [place] [phone] Health Maintenance Due Date Last Done Comments CT Colonography 1959 Cologuard 1959 Diabetic Office Visit with Foot Exam 1959 FIT 1959 Hepatitis C Screening 1959 Office Visit for Blood Pressure Check / Re-check 1959 Urine Albumin 1959 Pneumococcal vaccine (50+ years) (1 of 2 - PCV) 1978 DTaP,Tdap,and Td Vaccines (1 - Tdap) 09/03/2006 09/02/2006, 03/27/2006, 03/27/2006 Zoster Vaccines (1 of 2) 2009 Diabetic Eye Exam 12/19/2013 12/19/2012 Hepatitis B Vaccines (1 of 3 - Risk 3-dose series) 2019 RSV vaccine - (32-36 weeks) or 60+ years (1 - Risk 60-74 years 1-dose series) 2019 Colonoscopy 09/04/2020 09/04/2010 (Perf ormed elsewhere) Colorectal Cancer Screening 09/04/2020 Depression Screening (Annual PHQ-2) 09/02/2024 Fall Risk Screen (Annual) 09/02/2024 Hemoglobin A1C 03/22/2025 12/21/2024, 06/03, 03/30/2024, Additional history exists COVID-19 Vaccine ( - season) 2025 Influenza Vaccine (#1) 2025 06/30/2008, 2006 Lipid (Cholesterol) Screening 09/30/2025 09/30/2024, 04/23/2022, 10/18/2021, Additional history exists Creatinine Level (Kidney Function Test) 01/11/2026 01/11/2025, 12/06/2024, 09/30/2024, Additional history exists Potassium Level 01/11/2026 01/11/2025, 04/0 01/2025, 09/30/2024, Additional history exists Sodium Level 01/11/2026 01/11/2025, 04/0 01/2025, 09/30/2024, Additional history exists Abdominal Aortic Aneurysm (AAA) Screen Completed 06/27/2023, 06/27/2023 IPV Vaccines Aged Out No longer eligi ble based on patient's age to complete this topic Procedures Procedure Name Priority Date/Time Associated Diagnosis Comments SODIUM, S/P Routine 01/11/2025 7:36 AM CDT Nonrheumatic Aortic Valve Disorder Unspecified Stenosis Aortic Valve Acquired POTASSIUM, S/P Routine 01/11/2025 7:36 AM CDT Nonrheumatic Aortic Valve Disorder Unspecified Stenosis Aortic Valve Acquired CREATININE WITH EGFR, S/P Routine 01/11/2025 7:36 AM CDT Nonrheumatic Aortic Valve Disorder Unspecified Stenosis Aortic Valve Acquired LIPID PANEL, S Routine 09/30/2024 8:40 AM AIRPLANE TUBE BUILDER Stenosis Aortic Valve Acquired Nonrheumatic Aortic Valve Disorder Unspecified Hyperlipidemia HEMOGLOBIN A1C, B Routine 12/18/2012 9:3 5 AM CDT from Last 3 Months or Most Recently Relevant to Health Maintenance Results * Sodium (01/11/2025 7:36 AM CDT) Sodium, S 135 135 - 145 mmol/L 01/11/2025 8:52 AM CDT DTL Blood (Blood, Venous) 01/11/2025 7:36 AM CDT 01/11/2025 8:22 AM CDT Quyen Shaver, Ph.D. LAB BLOOD ADD-ON F inal Result Performing Organization Address City/[facility]/ZIP Co de Phone Number [facility] [place] [address] 200 [place] [address] * Potassium (01/11/2025 7:36 AM CDT) Potassium, S 4.9 3.6 - 5.2 mmol/L 01/11/2025 8:52 AM CDT DTL Blood (Blood, Venous) 01/11/2025 7:36 AM CDT 01/11/2025 8:22 AM CDT Quyen Shaver, Ph.D. LAB BLOOD ADD-ON F inal Result Performing Organization Address City/[facility] Co de Phone Number [facility] [place] [address] 200 [place] [address] * Creatinine with Estimated GFR (01/11/2025 7:36 AM CDT) Creatinine 1.02 0.74 - 1.35 mg/dL 01/11/2025 8:52 AM CDT DTL Estimated GFR (eGFR) 82 >=60 mL/min/BSA 01/11/2025 8:52 AM CDT DTL Comment: Estimated GFR calculated using the 2020 CKD_EPI creatinine equation. Blood (Blood, Venous) 01/11/2025 7:36 AM CDT 01/11/2025 8:22 AM CDT Quyen Shaver, Ph.D. LAB BLOOD ADD-ON F inal Result Performing Organization Address City/[facility]/ZIP Co de Phone Number [facility] [place] [address] [facility] [address] [place] [address] * (ABNORMAL) Lipid Panel (09/30/2024 8:40 AM AIRPLANE TUBE BUILDER) Triglycerides 101 mg/dL 09/30/2024 9:52 AM AIRPLANE TUBE BUILDER DTL Comment: ----REFERENCE VALUE---- Normal: <150 mg/dL Borderline High: 150-199 mg/dL High: 200-499 mg/dL Very High: > or =500 mg/dL Cholesterol, Total 201(H) mg/dL 2024 9:52 AM AIRPLANE TUBE BUILDER DTL Comment: ----REFERENCE VALUE---- Desirable: < 200 mg/dL Borderline High: 200 - 239 mg/dL High: > or = 240 mg/dL Cholesterol, LDL, Calculated 147(H) mg/dL 09/30/2024 9:52 AM AIRPLANE TUBE BUILDER DTL Comment: ----REFERENCE VALUE---- Desirable: <100 mg/dL Above Desirable: 100-129 mg/dL Borderline High: 130-159 mg/dL High: 160-189 mg/dL Very High: >=190 mg/dL ----ADDITIONAL INFORMATION---- LDL cholesterol calculated using the Lozoya/NIH equation. Cholesterol, HDL, S 36(L) >=40 mg/dL 09/30/2024 9:52 AM AIRPLANE TUBE BUILDER DTL Cholesterol, Non-HDL, Calculated 165(H) mg/dL 09/30/2024 9:52 AM AIRPLANE TUBE BUILDER DTL Comment: ----REFERENCE VALUE---- Desirable: <130 mg/dL Above Desirable: 130-159 mg/dL Borderline High: 160-189 mg/dL High: 190-219 mg/dL Very High: > or =220 mg/dL Fasting (8 HR or more) Yes 09/30/2024 8:40 AM AIRPLANE TUBE BUILDER DTL Blood (Blood, Venous) 09/30/2024 8:40 AM AIRPLANE TUBE BUILDER 09/30/2024 9:26 AM AIRPLANE TUBE BUILDER us Herbert Ho M.D. LAB BLOOD ADD-ON Final Resu lt [facility] [place] [address] [place], [place] [address] DTL [facility] [address] [place] [address] * (ABNORMAL) Hemoglobin A1c (12/18/2012 9:35 AM CDT) Hemoglobin A1c, B 6.1(H) 4.0 - 6.0 % [facility] [place] 12/18/2012 9:35 AM CDT 12/18/2012 9:35 AM CDT us Paul Liang M.D. LAB BLOOD ADD-ON Final Resu lt [facility] [place] [address] [place] [address], [facility] from Last 3 Months or Most Recently Relevant to Health Maintenance Insurance [place] MEDICA[place] MEDICARE Care Teams Pre School Teacher Relationship Specialty Start Date End Date Elsewhere, Pcp PCP - General Internal Medicine 05/06/24
--- OUTSIDE RECORDS SUMMARY | 2025-05-15 22:09 | XMS_ITS | Clinical Summary ---
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 Gender Identity Not on file Sexual Orientation Not on file Last Filed Vital Signs Vital Sign Reading Time Taken Comments Blood Pressure 179/105 05/05/2020 9:28 PM CDT Pulse 72 05/05/2020 9:28 PM CDT Temperature 36.7 C (98.1 F) 05/05/2020 9:28 PM CDT Respiratory Rate 20 05/05/2020 9:28 PM CDT Oxygen Saturation 98% 05/05/2020 9:28 PM CDT Inhaled Oxygen Concentration - - Weight 81.2 kg (179 lb) 01/20/2025 3:00 PM CDT Height - - Body Mass Index - - Plan of Treatment Health Maintenance Due Date Last Done Comments ADVANCE CARE PLANNING 1959 ANNUAL REVIEW OF HM ORDERS 1959 CT COLONOGRAPHY 1959 DIABETES SCREENING 1959 FIT 1959 FLEX SIG 1959 sDNA (Cologuard) 1959 COLONOSCOPY 1969 COLORECTAL CANCER SCREENING 1969 HEPATITIS C SCREENING 1977 LIPID 1999 PNEUMOCOCCAL VACCINE 50+ YEARS (1 of 1 - PCV) 2009 ZOSTER VACCINE (1 of 2) 2009 DTAP/TDAP/TD VACCINE (5 - Td or Tdap) 09/02/2016 09/02/2006, 09/02/2006, 03/27/2006, Additional history exists FALL RISK ASSESSMENT 2024 PHQ-2 (once per calendar year) 2024 COVID-19 VACCINE ( - season) 2025 INFLUENZA VACCINE (#1) 2025 06/30/2008, 2006 MEDICARE ANNUAL WELLNESS VISIT 06/30/2025 06/30/2024, 06/03/2023, 03/12/2022, Additional history exists RSV VACCINE (1 - 1-dose 75+ series) 2034 HPV VACCINE (No Doses Required) Completed MENINGITIS VACCINE Aged Out No longer eligible based on patient's age to complete this topic Insurance MEDICARE [place]ICAID [place] LIMITED MEDICARE MEDICAID MD Care Teams Plumbers And Top Helpers Relationship Specialty [place] [address] [place] [address] PCP - General Family Medicine 12/30/24
--- OUTSIDE RECORDS SUMMARY | 2025-05-15 22:09 | XMS_ITS | Encounter Summary ---
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 [address] [place] [address] Phone: tel: fax: [facility] Referral ID Status Reason Start Date Expiration Date V isits Requested Visits Authorized [id number] Authorized 04/07/2025 07/08/2026 1 1 Reason for Visit * Reason Onset Date Comments Echo Move Up Request 04/06/2025 Encounter Details Date Type Department Care Team (Latest Contact Info) Description 04/06/2025 Clinical Communication Department of Cardiovascular Medicine in [place], [place] [address] [place] [phone] Director Of Student LifeEnzo M.D. 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 [address] [place] [phone] Discharge Disposition: Home or Self Care 05/21/2025 9:00 AM CDT Appointment Department of Vascular Medicine in [place], [place] [address] [place] [phone] Quan Reeves M.D., Ph.D. [address] [place] [phone] 05/21/2025 10:45 AM CDT Hospital Encounter Department of Cardiovascular Diseases in [address] [phone] Quan Reeves M.D., Ph.D. [address] [place] [phone] 05/21/2025 2:15 PM CDT Office Visit Department of Cardiovascular Medicine in [address] [phone] Rupert Jacobs M.D. 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
--- OUTSIDE RECORDS SUMMARY | 2025-05-15 22:09 | XMS_ITS | Encounter Summary ---
Author Organization [facility] Address [address] [place] [address] Care Team Providers Care Inflatable Buildings Laminator Name Role Phone Elsewhere, Pcp Primary Care Provider Unavailabl e Reason for Visit * Reason Onset Date Comments Order Request 04/06/2025 Encounter Details Date Type Department Care Team (Latest Contact Info) Description 04/06/2025 Clinical Communication Department of Cardiovascular Medicine in [place], [place] [address] [place] [phone] Tobacco SweeperEnzo M.D. 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 [address] [place] [phone] Discharge Disposition: Home or Self Care 05/21/2025 9:00 AM CDT Appointment Department of Vascular Medicine in [place], [place] [address] [place] [address] Quan Reeves M.D., Ph.D. [address] [place] [phone] 05/21/2025 10:45 AM CDT Hospital Encounter Department of Cardiovascular Diseases in [place], [place] [address] [place] [address] Quan Reeves M.D., Ph.D. [address] [place] [phone] 05/21/2025 2:15 PM CDT Office Visit Department of Cardiovascular Medicine in [place], [place] [address] [place] [address] Rupert Jacobs M.D. [address] [place] [phone] documented as of this encounter Visit Diagnoses Not on filedocumented in this encounter Care Teams Inflatable Buildings Laminator Relationship Specialty Start Date End Date Elsewhere, Pcp PCP - General Internal Medicine 05/06/24 documented as of this encounter
--- OUTSIDE RECORDS SUMMARY | 2025-05-15 22:09 | XMS_ITS | Encounter Summary ---
Author Organization [facility] Address [address] [place] [address] Care Team Providers Care Senior Training And Development Rep Name Role Phone Elsewhere, Pcp Primary Care Provider Unavailabl e Encounter Details Date Type Department Care Team (Late st Contact Info) Description 12/19/2012 Historical Ophthalmology [facility] Jagjit Otoole O.D. [address] [place] [address] Social History Tobacco Use Types Packs/Day Years Used Date Smoking Tobacco: Never Assessed Sex and Gender Information Value Date Recorded Sex Assigned at Not on file Legal Sex Male 4:01 PM RIDES SUPERVISOR Gender Identity Not on file Sexual [...] left eye CDM Reports - EYEGEN Id: [id number] Status: Fnl documented in this encounter Plan of Treatment Upcoming Encounters Date Type Department Care Team (Latest Contact Info) Description 05/19/2025 8:00 AM CDT Clinical Communication Virtual Review in [address] [phone] 05/21/2025 7:15 AM CDT Appointment Department of Cardiovascular Diseases in [address] [phone] Quan Reeves M.D., Ph.D. [address] [place] [phone] Discharge Disposition: Home or Self Care 05/21/2025 9:00 AM CDT Appointment Department of Vascular Medicine in [address] [phone] Quan Reeves M.D., Ph.D. [address] [place] [phone] 05/21/2025 10:45 AM CDT Hospital Encounter Department of Cardiovascular Diseases in [address] [phone] Quan Reeves M.D., Ph.D. [address] [place] [phone] 05/21/2025 2:15 PM CDT Office Visit Department of Cardiovascular Medicine in [place], [place] [address] [place] [phone] Rupert Jacobs M.D. [address] [place] [phone] documented as of this encounter Visit Diagnoses Not on filedocumented in this encounter Care Teams Senior Training And Development Rep Relationship Specialty Start Date End Date Elsewhere, Pcp PCP - General Internal Medicine 05/06/24 documented as of this encounter
--- OUTSIDE RECORDS SUMMARY | 2025-05-15 22:09 | XMS_ITS | Encounter Summary ---
Author Organization [facility] Address [address] [place] [address] Care Team Providers Care Galvanometer Assembler Name Role Phone Elsewhere, Pcp Primary Care Provider Unavailabl e Reason for Referral * Outpatient (Routine) - Closed Specialty Diagnoses / Procedures Referred By Syeda t Referred To Contact Diagnoses Asthma Mild Intermittent (HCC) Procedures DX Chest AP or PA and Lateral 2 Views Albin Mercer M.D. [address] [place] [phone] Phone: tel: fax: [facility] Referral ID Status Reason Start Date Expiration Date Visits Re quested Visits Authorized [id number] Closed 07/03/2024 07/03/2025 1 1 Encounter Details Date Type Department Care Team (Late st Contact Info) Description 07/03/2024 Orders Only Division of Pulmonary Medicine in [place], [place] [address] [place] [phone] [place] Prabhakar Parekh MD Asthma Mild Intermittent (HCC) Social History Tobacco Use Types Packs/Day Years Used Date Smoking Tobacco: Unknown Alcohol Use Standard Drinks/Week Comments Not Currently 0 (1 standard drink = 0.6 oz pur e alcohol) Sex and Gender Information Value Date Recorded Sex Assigned at Not on file Legal Sex Male 4:01 PM [employer] Gender Identity Not on file Sexual Orientation Not on file documented as of this encounter Plan of Treatment Upcoming Encounters Date Type Department Care Team (Latest Contact Info) Description 05/19/2025 8:00 AM CDT Clinical Communication Virtual Review in [place], [place] 200 [place] [address] 05/21/2025 7:15 AM CDT Appointment Department of Cardiovascular Diseases in [place], [place] [address] [place] [phone] Quan Reeves M.D., Ph.D. [address] [place] [phone] Discharge Disposition: Home or Self Care 05/21/2025 9:00 AM CDT Appointment Department of Vascular Medicine in [place], [place] [address] [place] [phone] Quan Reeves M.D., Ph.D. [address] [place] [phone] 05/21/2025 10:45 AM CDT Hospital Encounter Department of Cardiovascular Diseases in [address] [phone] Quan Reeves M.D., Ph.D. [address] [place] [phone] 05/21/2025 2:15 PM CDT Office Visit Department of Cardiovascular Medicine in [address] [phone] Rupert Jacobs M.D. [address] [place] [phone] documented as of this encounter Results * Pulmonary Function Tests (07/27/2024 1:07 PM [employer]) [facility] FVC 4.33 L 07/27/2024 2:13 PM [employer] [facility] FEV1 3.14 L 07/27/2024 2:13 PM [employer] [facility] FEV1/FVC 72.56 % 07/27/2024 2:13 PM [employer] [facility] KIU11-46% 1.85 L/s 07/27/2024 2:13 PM [employer] [facility] PEF PRE 9.10 L/s 07/27/2024 2:13 PM [employer] [facility] PIF PRE 8.00 L/s 07/27/2024 2:13 PM [employer] [facility] Pre FEF50/FIF50 32.96 % 2:13 PM [employer] [facility] FET PRE 14.87 sec 07/27/2024 2:13 PM [employer] [facility] DLCO 26.98 ml/(min*mm Hg) 07/27/2024 2:13 PM [employer] [facility] DLCOc 27.63 ml/(min*mm Hg) 07/27/2024 2:13 PM [employer] [facility] HB 13.80 g(Hb)/dL 07/27/2024 2:13 PM [employer] [facility] VA 6.34 L 07/27/2024 2:13 PM [employer] [facility] 07/27/2024 1:07 PM [employer] Impressions [facility] - 07/27/2024 2:13 PM [employer] Normal study. Narrative Procedure Note Joseph Marie M.D. - 07/27/2024 IMPRESSION: Normal study. us Albni Mercer M.D. PFT ORDERABLES Final Resu lt [facility] NA * DX Chest AP or PA and Lateral 2 Views (07/27/2024 12:33 PM [employer]) Anatomical Region Laterality Modality Chest, Thoracic RST LOS, Tho racic ARZ LOS, Thoracic FLA LOS N/A Digital Radiography Impressions 07/27/2024 12:35 PM [employer] Since 12/18/2012, increased hypertrophic changes of the spine. New mild abdominal aortic calcification. Chest otherwise negative and unchanged. Narrative 07/27/2024 12:35 PM [employer] EXAM: DX CHEST AP OR PA AND LATERAL 2 VIEWS Procedure Note Ellie Locke M.D. - 07/27/2024 EXAM: DX CHEST AP OR PA AND LATERAL 2 VIEWS IMPRESSION: Since 12/18/2012, increased hypertrophic changes of the spine. New mildabdominal aortic calcification. Chest otherwise negative and unchanged. Albin Mercer M.D. IMG DIAGNOSTIC IMAGING PRO CEDURES Final Result * PUL Exhaled Nitric Oxide (07/27/2024 11:53 AM [employer]) Exhaled NO Oral 29.5 ONBASE Parts per billion (ULN) 39 ONBASE Albin Mercer M.D. PFT ORDERABLES Final Resu lt ONBASE NA * CBC with Differential, Blood (07/27/2024 11:13 AM [employer]) Hemoglobin 13.8 13.2 - 16.6 g/dL 07/27/2024 12:11 PM [employer] D[facility] Hematocrit 41.9 38.3 - 48.6 % 07/27/2024 12:11 PM [employer] [facility] Erythrocytes 4.50 4.35 - 5.65 x10(12)/L 07/27/2024 12:11 PM [employer] [facility] MCV 93.1 78.2 - 97.9 fL 07/27/2024 12:11 PM [employer] [facility] RBC Distrib Width 12.2 11.8 - 14.5 % 07/27/2024 12:11 PM [employer] [facility] Platelet Count 240 135 - 317 x10(9)/L 07/27/2024 12:11 PM [employer] D[facility] Leukocytes 5.6 3.4 - 9.6 x10(9)/L 07/27/2024 12:11 PM [employer] DTL Neutrophils 3.02 1.56 - 6.45 x10(9)/L 07/27/2024 12:11 PM [employer] [facility] Lymphocytes 1.75 0.95 - 3.07 x10(9)/L 07/27/2024 12:11 PM [employer] [facility] Monocytes 0.65 0.26 - 0.81 x10(9)/L 07/27/2024 12:11 PM [employer] [facility] Eosinophils 0.15 0.03 - 0.48 x10(9)/L 07/27/2024 12:11 PM [employer] DTL Basophils 0.03 0.01 - 0.08 x10(9)/L 07/27/2024 12:11 PM [employer] [facility] Blood (Blood, Venous) 07/27/2024 11:13 AM [employer] 07/27/2024 11:44 AM [employer] Albin Mercer M.D. LAB BLOOD ADD-ON Final Res ult Performing Organization Address City/[facility]/ZIP Co de Phone Number [facility] [address] [place] [address], [facility] DTL [facility] [address] [place] [address] [facility] [address] [place] [address] * Immunoglobulin E (IgE) (07/27/2024 11:12 AM [employer]) Immunoglobulin E (IgE), S 87.9 <=214 kU/L 07/28/2024 6:02 PM [employer] [facility] Blood (Blood, Venous) 07/27/2024 11:12 AM [employer] 07/28/2024 12:11 PM [employer] Albin Mercer M.D. LAB BLOOD ADD-ON Final Res ult Performing Organization Address City/[facility]/ZIP Co de Phone Number [facility] [address] [place] [address] [facility] [address] [place] [address] documented in this encounter Visit Diagnoses Diagnosis Asthma Mild Intermittent (HCC) Asthma Mild Intermittent (HCC) documented in this encounter Care Teams Galvanometer Assembler Relationship Specialty Start Date End Date Elsewhere, Pcp PCP - General Internal Medicine 05/06/24 documented as of this encounter
--- OUTSIDE RECORDS SUMMARY | 2025-05-15 22:09 | XMS_ITS | Patient Health Record ---
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
--- OUTSIDE RECORDS SUMMARY | 2025-05-15 22:09 | XMS_ITS | Clinical Summary ---
Author Organization [facility] Address [address] [place] [address] Care Team Providers Care Reed Cleaner Name Role Phone Breezy Glynn Primary Care Provider [phone] Allergies Active Allergy Reactions Criticality Noted Date Comments Aripiprazole Other 05/07/2013 Other Reaction(s): Other (see comments) Had a sore throat and felt like he was going to pass out Azelastine Other Low 06/22/2019 Other Reaction(s): Other (see comments) Fluoxetine Other High 12/23/2013 Other Reaction(s): Other (see comments) [place] suicidal/agitated with one dose- wanted to jump out of the car [place] suicidal/agitated with one dose [place] suicidal/agitated with one dose- wanted to jump out of the car [place] suicidal/agitated with one dose Lisinopril Other High 01/06/2018 Other Reaction(s): Other (see comments) Joint pain fatigue weakness - even a light ladder Joint pain fatigue weakness - even a light ladder Joint pain fatigue weakness - even a light ladder Morphine Nausea 03/23/2020 Prednisone Other High 10/20/2014 Other Reaction(s): Other (see comments) Suicidal; too agitated Sulfa (Sulfonamide Antibiotics) Hives 10/16/2005 Tizanidine Other 12/28/2019 Other Reaction(s): Other (see comments) Legs gave out from underneath him. Won't take again. Medications ALPRAZolam (XANAX) 0.5 mg oral tablet Take 1 tablet (0.5 mg) by mouth at bedtime. 4 Active aspirin 81 mg oral chewable tablet Chew 1 tablet (81 mg) Daily. 4 Active enalapril (VASOTEC) 5 mg oral tablet Take 1 tablet (5 mg) by mouth twice a day. 4 Active metFORMIN ER (GLUCOPHAGE XR) 500 mg oral extended release tablet 24 HR TAKE 1 TABLET(500 MG) BY MOUTH DAILY 4 Active ramelteon (ROZEREM) 8 mg oral Tab Take 1 tablet (8 mg) by mouth Daily. 5 Active Cholecalciferol , Vitamin D3, 125 mcg (5,000 unit) oral capsule Take 125 mcg by mouth Daily. Active zinc gluconate 50 mg oral tablet Take 50 mg by mouth Daily. Active VITAMIN B COMPLEX ORAL Take 1 tablet by mouth Daily. Active OZEMPIC 0.25 mg or 0.5 mg (2 mg/3 mL) SubQ PnIj INJECT 0.5 MG SUBCUTANEOUS ONCE WEEKLY Active COMBIGAN 0.2-0.5 % Opht Drop INSTILL 1 DROP IN LEFT EYE TWICE DAILY 5 Active latanoprost 0.005% (XALATAN) 0.005 % Opht Drop ophthalmic (EYE) solution INSTILL 1 DROP IN LEFT EYE BEFORE BEDTIME 5 Active donepeziL (ARICEPT) 10 mg oral tabletIndicatio ns:Amnestic MCI (mild cognitive impairment with memory loss) Take 1 tablet (10 mg) by mouth once daily. 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 bicuspid aortic valve Insomnia 05/05/2024 Moderate aortic stenosis 05/05/2024 Overview (09/10/2024): Echocardiogram August 2023: The aortic valve is calcified, moderate stenosis and mild to moderate regurgitation Sleep apnea 05/05/2024 Overview (09/10/2024): pt states not a problem anymore Diabetes mellitus, type 2 12/16/2023 Mild intermittent asthma 08/20/2023 Hypercholesteremia 07/01/2023 Chronic kidney disease, stage 2 (mild) History of transient ischemic attack (TIA) 04/23 Seasonal allergic rhinitis due to pollen 019 Generalized anxiety disorder 05/21/2014 Overview (09/10/2024): Disorder Mood NOS Previously prescribed and tried psychiatric meds: prozac Paxil zoloft wellbutrin Celexa, Effexor, Cymbalta, remeron Depakote, [place], seroquel zyprexa Hyperlipidemia 10/20/2009 Overview (09/10/2024): Intolerable of simvastatin (although he had done well on the lipitor in the past) Zetia is prescribed today to check labs in 3 months. Essential hypertension 01/31/2007 Overview (09/10/2024): Hypertension (HTN) NOS IMO Update Hypertension (HTN) NOS Panic disorder with agoraphobia 02/14/2006 Overview (09/10/2024): IMO Update 06/12 Nonrheumatic heart valve disorder 06/26/1999 Overview (09/10/2024): IMO Update 06/12 Family History Medical History Relation Comments Dementia Father Dementia Mother Relation Status Comments Father Mother Alive Social History Tobacco Use Types Packs/Day Years Used Date Smoking Tobacco: Never Smokeless Tobacco: Never Tobacco Cessation:Counseling Given: Not Answered Alcohol Use Standard Drinks/Week Comments Not Currently 0 (1 standard drink = 0.6 oz pur e alcohol) Sex and Gender Information Value Date Recorded Sex Assigned at Not on file Legal Sex Male 5:21 AM CDT Gender Identity Not on file Sexual Orientation Not on file Last Filed Vital Signs Vital Sign Reading Time Taken Comments Blood Pressure 131/81 12/29/2024 8:59 AM CDT Pulse 69 12/29/2024 8:59 AM CDT Temperature - - Respiratory Rate - - Oxygen Saturation - - Inhaled Oxygen Concentration - - Weight 78.1 kg (172 lb 3.2 oz) 09/10/2024 8:06 A M SIFTING OPERATOR Height 175.3 cm (5' 9) 09/10/2024 8:06 AM SIFTING OPERATOR Body Mass Index 25.43 09/10/2024 8:06 AM SIFTING OPERATOR Plan of Treatment Health Maintenance Due Date Last Done Comments Colonoscopy 1959 Eye Exam 1959 Hepatitis C Screening 1959 Lipid Screening 1959 Microalbumin Q12 Month 1959 Depression Assessment (PHQ-2) 1960 Pneumococcal 50+ Years (1 of 2 - PCV) 1978 Yearly Review of HCD 2009 Zoster Vaccine (1 of 2) 2009 HgbA1C 06/19/2013 12/18/2012 Adult Tetanus Booster 09/02/2016 09/02/2006 , 03/27/2006, 03/27/2006 RSV Vaccines (1 - Risk 60-74 years 1-dose series) 2019 COVID-19 Vaccine ( - season) 2025 Influenza Vaccine (#1) 2025 06/30/2008, 2006 Medicare Wellness Visit 06/30/2025 06/30/20 24, 06/03/2023, 03/12/2022, Additional history exists Creatinine 01/11/2026 01/11/2025, 12/31, 01/11/2025, Additional history exists Meningococcal B Vaccine Aged Out No l onger eligible based on patient's age to complete this topic Insurance MEDICARE PART A & B MEDICAID [place] Care Teams Reed Cleaner Relationship Specialty Start Date End Date Breezy Glynn [address] [place] [address] PCP - General Family Medicine 07/14/24
[2025-05-15 22:12] VITALS: BP 147/86; PULSE 89; RESP 18; TEMP 37; O2SAT 97; BMI 27.1
--- NOTE | 2025-05-15 22:53 | ED.SKABFB ---
HPI - Skin/Abscess/Foreign Bdy General Time Seen by Provider: 22:53 Date Seen: 05/15/25 Chief complaint: Skin/Abscess/Foreign Body Stated complaint: left leg wound red and swollen Time Seen by Provider: 05/15/25 22:52 Source: patient Mode of arrival: ambulatory History of Present Illness HPI narrative: Marco is a 65 yo male with a past medical history of hypertension, diabetes who presents the emergency department for evaluation of left lower extremity redness. Patient reports that 2 days ago he was helping his son take a ladder off a vehicle when he accidentally dropped the lateral on his left leg. The ladder hit his left anterior buenrostro causing a few superficical scraps/abrasions. Patient states that yesterday he started to notice some redness surrounding the wounds along with swelling to his left anterior buenrostro. Patient states that his grandkids were over - states one is nonverbal and autistic, and the other is 2 years old. Patient reports the grand children were picking at his wounds. Patient reports he has had increasing redness, swelling, and concerns for infection. Patient denies any fever, chills, weakness, tingling, numbness, no other complaints. Patient denies any history of cellulitis, denies any history of MRSA, no recent hospitalizations. Patient does not use tobacco. Related Data Home Medications ?Medication ?Instructions ?Recorded ?Confirmed zolpidem 10 mg tablet 10 mg PO PRN 05/09/22 07/17/23 cholecalciferol (vitamin D3) 125 125 mcg PO DAILY 02/11/23 07/17/23 mcg (5,000 unit) tablet amoxicillin 875 mg-potassium 1 tab PO Q12H 07/17/23 07/17/23 clavulanate 125 mg tablet amitriptyline 10 mg tablet 10 mg PO QPM 07/13/24 07/13/24 aspirin 81 mg chewable tablet 1 tab PO DAILY 07/13/24 07/13/24 brimonidine 0.2 %-timolol 0.5 % 1 drp ophthalmic (eye-left) BID 07/13/24 07/13/24 eye drops (Combigan) chlorthalidone 25 mg tablet PO 07/13/24 enalapril maleate 5 mg tablet mg PO 07/13/24 metformin 500 mg tablet,extended 500 mg PO DAILY 07/13/24 07/13/24 release 24 hr Allergies Allergy/AdvReac Type Severity Reaction Status Date / Time fluoxetine (From Prozac) Allergy Severe suicidal Verified 05/15/25 22:14 prednisone Allergy Severe suicidal, Verified 05/15/25 22:14 agitation lisinopril Allergy Intermediate joint Verified 05/15/25 22:14 pain, weakness azelastine Allergy Mild burned nose Verified 05/15/25 22:14 Sulfa (Sulfonamide Allergy Mild Hives Verified 05/15/25 22:14 Antibiotics) Review of Systems Narrative: Past medical history, past surgical history, medications, allergies, family history, and social history were reviewed with the patient. No additional pertinent items. A medically appropriate review of systems was performed with pertinent positives and negatives noted in HPI, all other systems negative. [facility] Medical History Bicuspid aortic valve ?Q23.1 - Congenital insufficiency of aortic valve (ICD-10) Mitral valve disease ?I05.9 - Rheumatic mitral valve disease, unspecified (ICD-10) Essential hypertension ?I10 - Essential (primary) hypertension (ICD-10) History of posttraumatic stress disorder (PTSD) ?Z86.59 - Personal history of other mental and behavioral disorders (ICD-10) Hyperlipidemia ?E78.5 - Hyperlipidemia, unspecified (ICD-10) Bilateral cataracts ?H26.9 - Unspecified cataract (ICD-10) Blindness of one eye ?H54.40 - Blindness, one eye, unspecified eye (ICD-10) History of attention deficit disorder ?Z86.59 - Personal history of other mental and behavioral disorders (ICD-10) Sleep apnea ?G47.30 - Sleep apnea, unspecified (ICD-10) Murmur ?R01.1 - Cardiac murmur, unspecified (ICD-10) History of personality disorder ?Z86.59 - Personal history of other mental and behavioral disorders (ICD-10) Alcohol use disorder, moderate, in sustained remission ?F10.21 - Alcohol dependence, in remission (ICD-10) Social anxiety disorder ?F40.10 - Social phobia, unspecified (ICD-10) History of TIA (transient ischemic attack) ?Z86.73 - Personal history of transient ischemic attack (TIA), and cerebral infarction without residual deficits (ICD-10) Surgical History History of tonsillectomy ?Z90.89 - Acquired absence of other organs (ICD-10) History of cataract removal with insertion of prosthetic lens ?Z98.49 - Cataract extraction status, unspecified eye (ICD-10) ?Z96.1 - Presence of intraocular lens (ICD-10) History of arthroscopy of left shoulder ?Z98.890 - Other specified postprocedural states (ICD-10) Social History Smoking Status: Former smoker Do you use any of these nicotine containing products: None Second hand tobacco smoke exposure: No How often do you have a drink containing alcohol: monthly or less AUDIT-C Alcohol total score: 1 Non-prescribed substance use: denies use service: No Exam Narrative: Exam Narrative: General: Afebrile, no acute distress HEENT: Normocephalic, atraumatic, conjunctiva normal. MMM Neck: non-tender, supple Cardio: regular rate. regular rhythm Resp: Normal work of breathing, no respiratory distress, lungs clear bilaterally, no wheezing, rhonchi, rales Chest/Back: no visual signs of trauma, no midline tenderness, no CVA tenderness Abdomen: soft, non distension, no tenderness, no peritoneal signs Neuro: alert and fully oriented. CN II-XII grossly intact. Grossly normal strength and sensation in all extremities. MSK: left anterior buenrostro with superficial abrasions that area scabbed over, surrounding warmth, erythema to anterior buenrostro with no fluctuance, no abscess, no drainage. Normal range of motion. Distally NVI. Integumentary/Skin: no rash visualized, normal color Psych: normal affect, normal behavior Const: Vital Signs, click to edit/add: Vital Signs - 24 hr 05/15/25 22:12 05/15/25 23:21 05/15/25 23:22 Temperature 98.6 F 98.6 F 98.6 F Pulse Rate [Right Pulse Oximeter] 89 81 81 Respiratory Rate 18 18 18 Blood Pressure [Ri ght Upper Arm] 147/86 H 138/85 138/85 Pulse Oximetry 97 97 Oxygen Delivery Me thod Room Air Room Air Course Vital Signs Vital signs: Initial Vital Signs Temperature 98.6 F 05/15/25 22:12 Temperature Source Temporal Artery Scan 05/15/25 22:12 Pulse Rate 89 05/15/25 22:12 Respiratory Rate 18 05/15/25 22:12 Blood Pressure 147/86 H 05/15/25 22:12 Blood Pressure Mean 106 H 05/15/25 22:12 Blood Pressure Position Sitting 05/15/25 22:12 Pulse Oximetry 97 05/15/25 22:12 Oxygen Delivery Method Room Air 05/15/25 22:12 Vital Signs Temperature 98.6 F 05/15/25 22:12 Pulse Rate 89 05/15/25 22:12 Respiratory Rate 18 05/15/25 22:12 Blood Pressure 147/86 H 05/15/25 22:12 Pulse Oximetry 97 05/15/25 22:12 Oxygen Delivery Method Room Air 05/15/25 22:12 Temperature 98.6 F 05/15/25 23:22 Pulse Rate 81 05/15/25 23:22 Respiratory Rate 18 05/15/25 23:22 Blood Pressure 138/85 05/15/25 23:22 Pulse Oximetry 97 05/15/25 23:21 Oxygen Delivery Method Room Air 05/15/25 23:21 MDM - Skin/Abscess/Foreign Bdy MDM Narrative Medical decision making narrative: Marco is a 65 yo male with a past medical history of hypertension, diabetes who presents the emergency department for evaluation of left lower extremity redness. Upon arrival patient is non toxic appearing, afebrile, no distress. Patient hemodynamically stable vital signs within normal limits. On examination concerns for cellulitis. No area of fluctuance to suggest abscess, patient is otherwise nontoxic appearing. I considered laboratory testing however with shared decision-making will hold off on laboratory testing at this time as they would not change person tonight. Will plan for discharge with oral antibiotics - Keflex. Patient denies any history of recent hospitalization, no history of MRSA. Wound care discussed. Encouraged close outpatient follow-up and strict return precautions discussed. Patient understands and agrees the plan. Medical Records Attestation: I reviewed the patient's medical records. Discharge Plan Discharge Clinical Impression: Cellulitis Patient Disposition: Home, Self-Care Condition: Stable Instructions: Cellulitis (ED) Additional Instructions: Please follow up with your primary care provider in the next 3-5 days for further evaluation and follow-up. Please take antibiotics 3 times daily as directed. Please take Tylenol or ibuprofen as needed for fever, pain. Please keep wound clean and dry. Return to the emergency department if persistent high fever, severe pain, significant increase in redness, swelling, or streaking of redness up your leg, or any worsening symptoms. It was a pleasure taking care of you today. We hope you feel better soon. Prescriptions: No Action amoxicillin-pot clavulanate 875-125 mg tablet 1 tab PO Q12H zolpidem 10 mg tablet 10 mg PO PRN cholecalciferol (vitamin D3) 125 mcg (5,000 unit) tablet 125 mcg PO DAILY enalapril maleate 5 mg tablet PO chlorthalidone 25 mg tablet PO amitriptyline 10 mg tablet 10 mg PO QPM aspirin 81 mg tablet,chewable 1 tab PO DAILY metformin 500 mg tablet extended release 24 hr 500 mg PO DAILY brimonidine-timolol [Combigan] 0.2-0.5 % drops 1 drp ophthalmic (eye-left) BID Follow Up/Referrals: Breezy Glynn MD [Primary Care Provider, Family Practice] Stand Alone Forms: [employer] Info Instructions
[2025-05-15 23:21] VITALS: BP 138/85; PULSE 81; RESP 18; TEMP 37; O2SAT 97
[2025-05-15 23:22] VITALS: BP 138/85; PULSE 81; RESP 18; TEMP 37
== END 2025-05-15 23:22 | disposition home or self-care (01) ==
LOC: ED 23:10
PROVIDERS: Emergency Provider Emergency Medicine; PCP Family Medicine
DX: L03.116 Cellulitis of left lower limb (principal)
CPT/HCPCS: 99283; 99285

== ENCOUNTER 2025-07-29 19:22 | Emergency (ER) | payer MEDICARE, MEDICAID, SELFPAY ==
--- OUTSIDE RECORDS SUMMARY | 2025-06-14 08:30 | XMS_ITS | Encounter Summary ---
Author Organization [facility] Address [address] [place] [id number] Care Team Providers Care Construction Ironworker Name Role Phone Elsewhere, Pcp Primary Care Provider Unavailabl e Reason for Visit * Appointment Request (Routine) - Authorized Specialty Diagnoses / Procedures Referred By Syeda t Referred To Contact Sleep Medicine Referral ID Status Reason Start Date Expiration Date V isits Requested Visits Authorized [id number] Authorized 06/09/2025 09/09/2026 1 1 Encounter Details Date Type Department Care Team (Latest Contact Info) Description 06/14/2025 9:30 AM CDT Clinical Communication Virtual Review in [place], [place] [address] [place] [address] Social History Tobacco Use Types Packs/Day Years Used Date Smoking Tobacco: Former Cigarettes 0 Q uit: 1999 Passive Smoke Exposure: Past Smokeless Tobacco: Never Comments:01/07/25 - Quit over 20 -30 years ago Passive Exposure Comments:In my 20's Alcohol Use Standard Drinks/Week Comments Not Currently 0 (1 standard drink = 0.6 oz pur e alcohol) Hunger Vital Sign Answer Date Recorded Within the past 12 months, y ou worried that your food would run out before you got the money to buy more. Patient declined Within the past 12 months, t he food you bought just didn't last and you didn't have money to get more. Patient declined PRAPARE - Transportation Answer Date Re corded In the past 12 months, has l ack of transportation kept you from medical appointments or from getting medications? Patient declined 05/16/2025 In the past 12 months, has l ack of transportation kept you from meetings, work, or from getting things needed for daily living? Patient declined 05/16/2025 [facility] Utilities Answer Date Recorded In the past 12 months has e electric, gas, oil, or water company threatened to shut off services in your home? Patient declined 05/16/2025 Housing Stability Answer Date Recorded What is your living situation today? 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
--- OUTSIDE RECORDS SUMMARY | 2025-06-24 06:00 | XMS_ITS | Encounter Summary ---
Author Organization [facility] Address [address] [place] [address] Care Team Providers Care Building Associate Name Role Phone Elsewhere, Pcp Primary Care Provider Unavailabl e Reason for Referral * MRI/CAT/PET Scan (Routine) - Closed Specialty Diagnoses / Procedures Referred By Syeda marcum Referred To Contact Diagnoses Atherosclerotic Heart Disease Of [place] Coronary Artery Without Angina Pectoris Procedures PET CT Cardiac Perfusion Rest and Stress Marco Webb M.D., Ph.D. [address] [place] [phone] Phone: tel: fax: [facility] Referral ID Status Reason Start Date Expiration Date Visits Re quested Visits Authorized [id number] Closed 05/28/2025 08/28/2026 1 1 Reason for Visit * MRI/CAT/PET Scan (Routine) - Closed Specialty Diagnoses / Procedures Referred By Contac t Referred To Contact Diagnoses Atherosclerotic Heart Disease [place] Coronary Artery Without Angina Pectoris Procedures PET CT Cardiac Perfusion Rest and Stress Marco Webb M.D., Ph.D. [address] [place] [phone] Phone: tel: fax: [facility] Referral ID Status Reason Start Date Expiration Date Visits Re quested Visits Authorized [id number] Closed 05/28/2025 08/28/2026 1 1 Encounter Details Date Type Department Care Team (Latest Contact Info) Description 06/24/2025 7:00 AM CDT - 06/24/2025 11:59 PM CDT Hospital Encounter Department of Radiology, [facility], in [place], [place] [address] [place] [address] Marco Webb M.D., Ph.D. 200 [place] [address] Atherosclerotic [facility] [place] Coronary Artery Without Angina Pectoris Discharge Disposition: Home or Self Care Social History Tobacco Use Types Packs/Day Years [...] needed for daily living? Patient declined 05/16/2025 [facility] Utilities Answer Date Recorded In the past 12 months has [facility] [employer], [employer], oil, or water [employer] threatened to shut off services in your home? Patient declined 05/16/2025 Housing Stability Answer Date Recorded What is your living situation today? 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 05/21/2014 amitriptyline (ElaviL) 50 mg tablet Take 25 mg by mouth daily. 03/04/2024 amLODIPine (Norvasc) 5 mg tablet TAKE 1 TABLET(5 MG) BY MOUTH DAILY 90 tablet 3 05/22/2025 atorvastatin (Lipitor) 40 mg tabletIndications :Hyperlipidemia,S tenosis Aortic Valve Acquired TAKE 1 TABLET(40 MG) BY MOUTH DAILY 90 tablet 3 05/22/2025 B complex-vitamins (Balanced B-50) tablet Take 1 tablet by mouth daily. bempedoic acid 180 mg tablet Take 180 mg by mouth daily. 90 tablet 05/24/2025 cholecalciferol (Vitamin D3) 125 mcg (5,000 Unit) capsule Take 125 mcg by mouth daily. clopidogreL (Plavix) 300 mg tabletIndications :Atherosclerotic Heart Disease [place] Coronary Artery Without Angina Pectoris Take 1 tablet (300 mg total) by mouth once for 1 dose. 1 tablet 07/05/2026 6 Combigan 0.2-0.5 % ophthalmic solution Administer 1 drop into the left eye 2 (two) times a day. 12/07/2024 losartan (Cozaar) 50 mg tablet TAKE 1 TABLET(50 MG) BY MOUTH DAILY 90 tablet 3 05/22/2025 metFORMIN XR (Glucophage-XR) 500 mg 24 hr tablet Take 1 tablet by mouth daily. 07/03/2024 Ozempic 1 mg/dose (4 mg/3 mL) injection Inject 1 mg under the skin once a week. clopidogreL (Plavix) 75 mg tablet Take 1 tablet (75 mg total) by mouth once for 1 dose. 1 tablet 07/06/2025 5 aspirin 325 mg tablet Take 1 tablet (325 mg total) by mouth once for 1 dose. 1 tablet 07/06/2025 5 aspirin 81 mg chewable tablet Chew 1 tablet daily. 07/13/2024 5 donepeziL (Aricept) 10 mg tablet Take 10 mg by mouth daily. 2nd presciption 02/19/2025 5 donepeziL (Aricept) 5 mg tablet Take 1 tablet (5 mg) by mouth once daily for 28 days, THEN 2 tablets (10 mg) once daily for 28 days. Take one tablet at bedtime. 12/30/2024 doxycycline monohydrate (Monodox) 100 mg capsule 06/02/2025 enalapril (Vasotec) 5 mg tablet Take 1 tablet by mouth 2 (two) times a day. 01/07/2024 latanoprost (Xalatan) 0.005 % ophthalmic solution Administer 1 drop into the left eye at bedtime. 09/30/2024 ramelteon (Rozerem) 8 mg tablet Take 8 mg by mouth at bedtime. 12/21/2024 zinc gluconate 50 mg tablet Take 50 mg by mouth daily with morning meal. documented as of this encounter Plan of Treatment Not on file documented as of this encounter Procedures Procedure Name Priority Date/Time Associated Diagnosis Comments PET CT CARDIAC PERFUSION REST AND STRESS RAD - Routine (most inpatients and all outpatients) 06/24/2025 9:03 AM CDT Atherosclerotic [facility] Disease [place] Coronary Artery Without Angina Pectoris documented in this encounter Results * PET CT Cardiac Perfusion Rest and Stress (06/24/2025 9:03 AM CDT) 06/24/2025 7:00 AM CDT Narrative [facility] CV MERGE - 06/24/2025 10:36 AM CDT See PDF For Result Procedure Note Luc Goldman M.D. - 06/24/2025 See PDF For Result us Marco Webb M.D., Ph.D. IMG NM PROCEDURES Fi nal Result CV MERGE NA documented in this encounter Visit Diagnoses Diagnosis Atherosclerotic [facility] Disease [place] Coronary Artery Without Angina Pectoris documented in this encounter Administered Medications Inactive Administered Medications - up to 3 most recent administrations Medication Order MAR Action Action Date Dose Rate Site ammonia N 13 injection GROUP HOME (N-13 ammonia) 9-16.5 millicurie, intravenous, Once, On Jennifer 06/24/25 at 0800, For 1 dose, Imaging Protocol Orders Given 06/24/2025 7:35 AM CDT 12.84 millicuries ammonia N 13 injection GROUP HOME (N-13 ammonia) 9-16.5 millicurie, intravenous, Once, On Jennifer 06/24/25 at 0830, For 1 dose, Imaging Protocol Orders Given 06/24/2025 7:55 AM CDT 13.2 millicuries regadenoson injection 0.4 mg (Lexiscan) 0.4 mg, intravenous, Once, On Jennifer 06/24/25 at 0830, For 1 dose, Intraprocedure - Diagnostic, See protocol Administer via rapid IV injection (approximately 10 seconds). Given 06/24/2025 8:05 AM CDT 0.4 mg documented in this encounter Care Teams Building Associate Relationship Specialty Start Date End Date Elsewhere, Pcp PCP - General Internal Medicine 05/06/24 documented as of this encounter
--- OUTSIDE RECORDS SUMMARY | 2025-07-01 13:30 | XMS_ITS | Encounter Summary ---
Author Organization [facility] Address [address] [place] [address] Care Team Providers Care Scrape Gatherer Name Role Phone Elsewhere, Pcp Primary Care Provider Unavailabl e Reason for Visit * Reason Comments Patient Education Encounter Details Date Type Department Care Team (Latest Contact Info) Description 07/01/2025 2:30 PM CDT Virtual Visit Department of Cardiovascular Medicine in [place], [place] [address] [place] [phone] Rupert Jacobs M.D. [address] [place] [phone] Radha Goncalves, RDwayneN. [address] [place] [phone] Atherosclerotic [facility] Disease [facility] [place] Coronary Artery Without Angina Pectoris (Primary Dx); Diabetes Mellitus Type 2 (HCC); Sleep Apnea Unspecified; Hyperlipidemia Social History Tobacco Use Types Packs/Day Years [...] needed for daily living? Patient declined 05/16/2025 [facility] Utilities Answer Date Recorded In the past 12 months has th e [employer], gas, oil, or water company threatened to shut off services in your home? Patient declined 05/16/2025 Housing Stability Answer Date Recorded What is your living situation today? 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 * VIDEO: BALLOON ANGIOPLASTY AND STENTING (SAMI) * Instructions to get ready for your cardiac catheterization or heart rhythm procedure: [facility] * About Your Heart-Catheter Procedures documented in this encounter Progress Notes * Radha Goncalves, RDwayneN. - 07/01/2025 2:30 PM CDT SUBJECTIVE REASON FOR VISIT Pre-procedure education OBJECTIVE Nurse education visit was completed within the Pre-Procedure Clinic (PPC) as ordered by the referring provider for a [facility] readiness review and education prior to procedure. The visit was conducted via telephone. Procedure to be done: Coronary Angiogram with possible intervention Date of procedure: 07/06/25 BING completed within 30 days of procedure? No; to be completed in [facility] pre-procedure Labs completed within 45 days of procedure? No; scheduled on 07/05/25 ECG completed within designated timeframe of procedure? No; scheduled on 07/05/25 Allergy to contrast dye/iodine? No Medications -- Aspirin Instructions: Take four tablets of 81 mg non-enteric Aspirin (for a total of 324 mg) or one tablet of 325 mg non-enteric coated Aspirin on the morning of your procedure as directed. -- Anti-Platelet Therapy Instructions: Take one 300 mg tablet of Plavix on the day prior to your procedure. Take 1 tablet (75 mg) of Plavix on the morning of your procedure. -- Metformin: continue taking as prescribed (including day of procedure) You may take your Metformin as usual morning of procedure if desired. -- Vitamins/Supplements Instructions: Hold your vitamins or supplements the morning of the procedure. Last dose of Ozempic 06/10/25 (over 3 weeks ago) Anticoagulation Plan Not applicable ASSESSMENT / PLAN Information Discussed Reviewed pre-procedure instructions with patient/family including: Basic information about the scheduled procedure. Fasting prior to report time. Please refer to the ???Instructions To Get Ready for Your Cardiac Catheterization or Heart Rhythm Procedure: [facility] pamphlet for further details. Taking all medications as instructed. An automated text will be sent the evening before the procedure with your report time and location for the next day. If you do not receive a text, or prefer to call for your report time, please contact the [facility] Service Line at [phone] between the hours of 7:00 pm and midnight. Needing a responsible adult (18 years of age or older) to be present the day of procedure includingat discharge for transportation home. Planning to stay within 100 miles of [facility] overnight. Visitor Policy Please check the [facility] Visitor Policy website for the most up to date visitor policy information. Disposition/Recommendation: protocol orders Information/Education: patient/caller able to teach back Caller agreeable to plan of care: yes The following references were used: [facility] protocol: Cardiovascular Clinic Pre-Cardiac Invasive Catheterization Procedure Patient Management documented in this encounter Plan of Treatment Not on file documented as of this encounter Visit Diagnoses Diagnosis Atherosclerotic [facility] [place] Coronary Artery Without Angina Pectoris- Primary Diabetes Mellitus Type 2 (HCC) Sleep Apnea Unspecified Hyperlipidemia documented in this encounter Care Teams Scrape Gatherer Relationship Specialty Start Date End Date Elsewhere, Pcp PCP - General Internal Medicine 05/06/24 documented as of this encounter
--- OUTSIDE RECORDS SUMMARY | 2025-07-05 13:51 | XMS_ITS | Encounter Summary ---
Author Organization [facility] Address [address] [place] [id number] Care Team Providers Care Press Tender Smoke Signal Name Role Phone Elsewhere, Pcp Primary Care Provider Unavailabl e Encounter Details Date Type Department Care Team (Latest Contact Info) Description 07/05/2025 1:51 PM DIELECTRIC TESTER - 07/05/2025 11:59 PM DIELECTRIC TESTER Hospital Encounter Department of Laboratory Medicine in [address] [phone] Marco Webb M.D., Ph.D. [address] [place] [phone] Atherosclerotic Heart Disease Of [place] Coronary Artery Without Angina Pectoris Discharge Disposition: [...] needed for daily living? Patient declined 05/16/2025 [facility] Utilities Answer Date Recorded In the past 12 months has th e electric, gas, oil, or water company threatened to shut off services in your home? Patient declined 05/16/2025 Housing Stability Answer Date Recorded What is your living situation today? 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 Take morning of procedure. 07/01/2025 aspirin 81 mg chewable tablet Chew 1 tablet (81 mg total) daily. 180 tablet 2 07/07/2025 atorvastatin (Lipitor) 40 mg tabletIndication s:Hyperlipidemia ,Stenosis Aortic Valve Acquired TAKE 1 TABLET(40 MG) BY MOUTH DAILY 90 tablet 3 05/22/2025 B complex-vitamins (Balanced B-50) tablet Take 1 tablet by mouth daily. bempedoic acid 180 mg tablet Take 180 mg by mouth daily. 90 tablet 05/24/2025 cholecalciferol (Vitamin D3) 125 mcg (5,000 Unit) capsule Take 125 mcg by mouth daily. clopidogreL (Plavix) 300 mg tabletIndication s:Atheroscleroti c Heart Disease [place] Coronary Artery Without Angina Pectoris Take 1 tablet (300 mg total) by mouth once for 1 dose. 1 tablet 07/05/2026 Combigan 0.2-0.5 % ophthalmic solution Administer 1 drop into the left eye 2 (two) times a day. 12/07/2024 fenofibrate (Lofibra) 160 mg tablet Take 160 mg by mouth daily. losartan (Cozaar) 50 mg tablet TAKE 1 [...] once for 1 dose. 1 tablet 07/06/2025 aspirin 81 mg chewable tablet Chew 1 tablet daily. 07/13/2024 5 ezetimibe (Zetia) 10 mg tablet Take 1 tablet (10 mg total) by mouth daily. 30 tablet 2 07/07/2025 documented as of this encounter Plan of Treatment Not on file documented as of this encounter Procedures Procedure Name Priority Date/Time Associated Diagnosis Comments CBC WITHOUT DIFFERENTIAL, B Routine 07/05/2025 2:08 PM DIELECTRIC TESTER Atherosclerotic [facility] Disease [facility] [place] Coronary Artery Without Angina Pectoris SODIUM, S/P Routine 07/05/2025 2:08 PM DIELECTRIC TESTER Atherosclerotic [facility] Disease [facility] [place] Coronary Artery Without Angina Pectoris POTASSIUM, S/P Routine 07/05/2025 2:08 PM DIELECTRIC TESTER Atherosclerotic [facility] Disease [place] Coronary Artery Without Angina Pectoris CREATININE WITH EGFR, S/P Routine 07/05/2025 2:08 PM DIELECTRIC TESTER Atherosclerotic [facility] Disease [facility] [place] Coronary Artery Without Angina Pectoris documented in this encounter Results * Sodium (07/05/2025 2:08 PM DIELECTRIC TESTER) Sodium, P 136 135 - 145 mmol/L 07/05/2025 6:31 PM DIELECTRIC TESTER OWAT Blood (Blood, Venous) 07/05/2025 2:08 PM DIELECTRIC TESTER 07/05/2025 5:43 PM DIELECTRIC TESTER Marco Webb M.D., Ph.D. LAB BLOOD ADD-ON Fin al Result [facility] [address] [place] [address], [place] OWAT [facility] [place] [address] [place] [address] * Potassium (07/05/2025 2:08 PM DIELECTRIC TESTER) Potassium, P 4.6 3.6 - 5.2 mmol/L 07/05/2025 6:31 PM DIELECTRIC TESTER OWAT Blood (Blood, Venous) 07/05/2025 2:08 PM DIELECTRIC TESTER 07/05/2025 5:43 PM DIELECTRIC TESTER Marco Webb M.D., Ph.D. LAB BLOOD ADD-ON Fin al Result Performing Organization Address [facility] Co de Phone Number [facility] [address] [place] [address], [place] OW[place] [facility] [place] [address] [place] [address] * Creatinine with Estimated GFR (07/05/2025 2:08 PM DIELECTRIC TESTER) Creatinine 0.98 0.74 - 1.35 mg/dL 07/05/2025 6:31 PM DIELECTRIC TESTER OWAT Estimated GFR (eGFR) 85 >=60 mL/min/BSA 07/05/2025 6:31 PM DIELECTRIC TESTER OWAT Comment: Estimated GFR calculated using the 2020 CKD_EPI creatinine equation. Blood (Blood, Venous) 07/05/2025 2:08 PM DIELECTRIC TESTER 07/05/2025 5:43 PM DIELECTRIC TESTER Marco Webb M.D., Ph.D. LAB BLOOD ADD-ON Fin al Result [facility] [address] [place] [address], [place] OW[place] [facility] [place] [address] [place] [address] * CBC without Differential (07/05/2025 2:08 PM DIELECTRIC TESTER) Hemoglobin 13.6 13.2 - 16.6 g/dL 07/05/2025 5:44 PM DIELECTRIC TESTER OWAT Hematocrit 40.0 38.3 - 48.6 % 07/05/2025 5:44 PM DIELECTRIC TESTER OWAT Erythrocytes 4.36 4.35 - 5.65 x10(12)/L 07/05/2025 5:44 PM DIELECTRIC TESTER OWAT MCV 91.7 78.2 - 97.9 fL 07/05/2025 5:44 PM DIELECTRIC TESTER OWAT RBC Distrib Width 12.2 11.8 - 14.5 % 07/05/2025 5:44 PM DIELECTRIC TESTER OWAT Platelet Count 257 135 - 317 x10(9)/L 07/05/2025 5:44 PM DIELECTRIC TESTER OWAT Leukocytes 5.3 3.4 - 9.6 x10(9)/L 07/05/2025 5:44 PM DIELECTRIC TESTER OWAT Blood (Blood, Venous) 07/05/2025 2:08 PM DIELECTRIC TESTER 07/05/2025 5:40 PM DIELECTRIC TESTER us Marco Webb M.D., Ph.D. LAB BLOOD ADD-ON Fin al Result [facility] [address] [place] [address], [facility] OWAT [facility] [place] [facility] [address] [place] [address] documented in this encounter Visit Diagnoses Diagnosis Atherosclerotic Heart Disease Of [place] Coronary Artery Without Angina Pectoris documented in this encounter Care Teams Press Tender Smoke Signal Relationship Specialty Start Date End Date Elsewhere, Pcp PCP - General Internal Medicine 05/06/24 documented as of this encounter
--- OUTSIDE RECORDS SUMMARY | 2025-07-05 13:51 | XMS_ITS | Encounter Summary ---
Author Organization [facility] Address [address] [place] [id number] Care Team Providers Care Resource Analyst Name Role Phone Elsewhere, Pcp Primary Care Provider Unavailabl e Reason for Referral * Outpatient (Routine) - Closed Specialty Diagnoses / Procedures Referred By Syeda marcum Referred To Contact Diagnoses Atherosclerotic Heart Disease Of [place] Coronary Artery Without Angina Pectoris Procedures ECG 12 Lead OR EKG 12 LEAD [facility] Marco Webb M.D., Ph.D. [address] [place] [address] Phone: tel: fax: [facility] Region Referral ID Status Reason Start Date Expiration Date Visits Re quested Visits Authorized [id number] Closed 07/01/2025 10/01/2026 1 1 N EXPORT AGENT Reason for Visit * Outpatient (Routine) - Closed Specialty Diagnoses / Procedures Referred By Syeda t Referred To Contact Diagnoses Atherosclerotic [facility] Disease [facility] [place] Coronary Artery Without Angina Pectoris Procedures ECG 12 Lead OR EKG 12 LEAD [facility] I[facility] Marco Webb M.D., Ph.D. [address] [place] [address] Phone: tel: fax: [facility] Region Referral ID Status Reason Start Date Expiration Date Visits Re quested Visits Authorized [id number] Closed 07/01/2025 10/01/2026 1 1 Encounter Details Date Type Department Care Team (Latest Contact Info) Description 07/05/2025 1:51 PM OCEAN EXPORT AGENT - 07/05/2025 11:59 PM OCEAN EXPORT AGENT Hospital Encounter Department of Laboratory Medicine in [place], [place] [address] [place] [phone] Marco Webb M.D., Ph.D. [address] [place] [address] Atherosclerotic [facility] Disease [facility] [place] Coronary Artery Without Angina Pectoris Discharge Disposition: [...] needed for daily living? Patient declined 05/16/2025 [facility] Utilities Answer Date Recorded In the past 12 months has [facility] [employer], [employer], oil, or water [employer] threatened to shut off services in your home? Patient declined 05/16/2025 Housing Stability Answer Date Recorded What is your living situation today? Patient dec lined 05/16/2025 Sex and Gender Information Value Date Recorded Sex Assigned at Male 05/24/2025 2:43 PM CDT Legal Sex Male 4:01 PM OCEAN EXPORT AGENT Gender Identity Male 05/24/2025 2:43 PM CDT [...] mg tabletIndication s:Atheroscleroti c Heart Disease [facility] [place] Coronary Artery Without Angina Pectoris Take 1 [...] chewable tablet Chew 1 tablet daily. 07/13/2024 ezetimibe (Zetia) 10 mg tablet Take 1 tablet (10 mg total) by mouth daily. 30 tablet 2 07/07/2025 documented as of this encounter Plan of Treatment Not on file documented as of this encounter Procedures Procedure Name Priority Date/Time Associated Diagnosis Comments ECG Routine 07/05/2025 2:05 PM OCEAN EXPORT AGENT Atherosclerotic Heart Disease [place] Coronary Artery Without Angina Pectoris documented in this encounter Results * ECG 12 Lead (07/05/2025 2:05 PM OCEAN EXPORT AGENT) Ventricular Rate ECG/Min 74 BPM MUSE OR Interval 190 ms MUSE QRSD Interval 88 ms MUSE QT Interval 362 ms MUSE QTC Interval 401 ms MUSE P [place] 40 degrees MUSE R [place] 3 degrees MUSE T Wave [place] 44 degrees MUSE 07/05/2025 2:05 PM OCEAN EXPORT AGENT 07/05/2025 2:13 PM OCEAN EXPORT AGENT Impressions MUSE - 07/05/2025 2:13 PM OCEAN EXPORT AGENT Normal sinus rhythm Poor R wave progression Nonspecific ST and T wave abnormality When compared with ECG of 11-Jan-2025 07:57, Poor R wave progression is now present Reviewed by DEBBIE Ruelas Narrative Procedure Note Anastacio Arriaga M.B.B.S. - 07/05/2025 IMPRESSION: Normal sinus rhythm Poor R wave progression Nonspecific ST and T wave abnormality When compared with ECG of 11-Jan-2025 07:57, Poor R wave progression is now present Reviewed by DEBBIE Ruelas Marco Webb M.D., Ph.D. ECG ORDERABLES Hayley veliz Result MUSE NA documented in this encounter Visit Diagnoses Diagnosis Atherosclerotic [facility] Disease [place] Coronary Artery Without Angina Pectoris documented in this encounter Care Teams Resource Analyst Relationship Specialty Start Date End Date Elsewhere, Pcp PCP - General Internal Medicine 05/06/24 documented as of this encounter
--- OUTSIDE RECORDS SUMMARY | 2025-07-06 08:39 | XMS_ITS | Encounter Summary ---
Author Organization [facility] Address [address] [place] [address] Care Team Providers Care Patient Accounts Coordinator Name Role Phone Elsewhere, Pcp Primary Care Provider Unavailabl e Encounter Details Date Type Department Care Team (Latest Contact Info) Description 07/06/2025 8:39 AM TRACTOR TRAILER TECHNICIAN - 07/06/2025 12:45 PM TRACTOR TRAILER TECHNICIAN Hospital Encounter Division of Cardiovascular Diseases in [address] [place] [phone] Leo Prescott M.D. [address] [place] [phone] Atherosclerotic Heart Disease Of [place] Coronary Artery Without Angina Pectoris Discharge Disposition: [...] needed for daily living? Patient declined 05/16/2025 [facility] Utilities Answer Date Recorded In the past [...] PM CDT Legal Sex Male 4:01 PM TRACTOR TRAILER TECHNICIAN Gender Identity Male 05/24/2025 2:43 PM CDT Sexual Orientation Straight 05/24/2025 2: 43 PM CDT documented as of this encounter Last Filed Vital Signs Vital Sign Reading Time Taken Comments Blood Pressure 151/82 07/06/2025 12:18 PM TRACTOR TRAILER TECHNICIAN Pulse 65 07/06/2025 12:18 PM TRACTOR TRAILER TECHNICIAN Temperature 36.5 C (97.7 F) 07/06/2025 9:10 AM TRACTOR TRAILER TECHNICIAN Respiratory Rate 14 07/06/2025 9:10 AM TRACTOR TRAILER TECHNICIAN Oxygen Saturation 99% 07/06/2025 12: 18 PM TRACTOR TRAILER TECHNICIAN Inhaled Oxygen Concentration - - Weight 85.2 kg (187 lb 13.3 oz) 07/06/2025 9:05 AM TRACTOR TRAILER TECHNICIAN Height 172 cm (5' 7.72) 07/06/2025 9:05 AM TRACTOR TRAILER TECHNICIAN Body Mass Index 28.8 07/06/2025 9:05 AM TRACTOR TRAILER TECHNICIAN documented in this encounter Discharge Instructions * Attachments The following attachments cannot be sent through Care Everywhere. * Care Following Your Catheter Procedure documented in this encounter Medications at Time of [...] mg tabletIndication s:Atheroscleroti c Heart Disease Of [place] Coronary Artery Without Angina Pectoris Take 1 [...] by mouth daily. 30 tablet 2 07/07/2025 5 documented as of this encounter Plan of Treatment Not on file documented as of this encounter Procedures Procedure Name Priority Date/Time Associated Diagnosis Comments GLUCOSE POCT, B Routine 07/06/2025 10:59 AM TRACTOR TRAILER TECHNICIAN CARDIAC CATHETERIZATION Routine 07/06/20 10:25 AM TRACTOR TRAILER TECHNICIAN Atherosclerotic Heart Disease Of [place] Coronary Artery Without Angina Pectoris GLUCOSE POCT, B Routine 07/06/2025 9:14 AM TRACTOR TRAILER TECHNICIAN documented in this encounter Results * (ABNORMAL) Glucose, POCT (07/06/2025 10:59 AM TRACTOR TRAILER TECHNICIAN) Glucose, POCT, B 252(H) 70 - 140 mg/dL 07/06/2025 11:02 AM TRACTOR TRAILER TECHNICIAN PCLX Site Capillary 07/06/2025 11:02 AM TRACTOR TRAILER TECHNICIAN PCLX Blood 07/06/2025 10:5 9 AM TRACTOR TRAILER TECHNICIAN 07/06/2025 11:03 AM TRACTOR TRAILER TECHNICIAN us Unknown Provider LAB POCT ORDERABLES-MANUAL Hayley l Result POC [facility] [address] [place] [address], [facility] PCLX [facility] [address] [place] [address] * CORONARY ANGIOGRAPHY (07/06/2025 10:25 AM TRACTOR TRAILER TECHNICIAN) Anatomical Region Laterality Modality X-Ray Angiograph y 07/06/2025 10:0 3 AM TRACTOR TRAILER TECHNICIAN Narrative 07/06/2025 1:39 PM TRACTOR TRAILER TECHNICIAN For the complete report, see the Order-Level Documents. PROCEDURE TYPES 1. CORONARY ANGIOGRAPHY FINAL DIAGNOSIS 1. Coronary artery atherosclerosis PRE-PROCEDURE DIAGNOSIS 1. Atherosclerotic Heart Disease Of [place] Coronary Artery Without Angina Pectoris CORONARY DIAGNOSTIC SUMMARY Coronary artery dominance is right. Normal left main coronary. The proximal left anterior descending artery is 50% obstructed by a tubular lesion. The middle left anterior descending artery is 30% obstructed by diffuse disease and 80% obstructed by a discrete lesion. The first diagonal branch is 70% obstructed by a discrete lesion. The second diagonal branch is 70% obstructed by a discrete lesion. The proximal circumflex artery is 50% obstructed by a discrete lesion. The proximal right coronary artery is 20% obstructed by diffuse disease. High anterior take off of RCA ostium. RADIATION DOSE DATA Procedure cumulative skin dose (mGy): 155.44 Procedure cumulative dose area product (Gy-cm2): 13.30 Fluoro Time (Min): 4.24 CONTRAST DOSE DATA iohexoL 350 mg iodine/mL solution (Omnipaque): 60mL For the complete report, see the Order-Level Documents. Procedure Note Leo Prescott M.D. - 07/06/2025 For the complete report, see the Order-Level Documents. PROCEDURE TYPES 1. CORONARY ANGIOGRAPHY FINAL DIAGNOSIS 1. Coronary artery atherosclerosis PRE-PROCEDURE DIAGNOSIS 1. Atherosclerotic Heart Disease Of [place] Coronary Artery Without AnginaPectoris CORONARY DIAGNOSTIC SUMMARY Coronary artery dominance is right. Normal left main coronary. The proximal left anterior descending artery is 50% obstructed by atubular lesion. The middle left anterior descending artery is 30% obstructed by diffusedisease and 80% obstructed by a discrete lesion. The first diagonal branch is 70% obstructed by a discrete lesion. The second diagonal branch is 70% obstructed by a discrete lesion. The proximal circumflex artery is 50% obstructed by a discrete lesion. The proximal right coronary artery is 20% obstructed by diffuse disease. High anterior take off of RCA ostium. RADIATION DOSE DATA Procedure cumulative skin dose (mGy): 155.44 Procedure cumulative dose area product (Gy-cm2): 13.30 Fluoro Time (Min): 4.24 CONTRAST DOSE DATA iohexoL 350 mg iodine/mL solution (Omnipaque): 60mL For the complete report, see the Order-Level Documents. us Marco Webb M.D., Ph.D. CV CARDIAC CATH PROC EDURES Final Result * (ABNORMAL) Glucose, POCT (07/06/2025 9:14 AM TRACTOR TRAILER TECHNICIAN) Glucose, POCT, B 262(H) 70 - 140 mg/dL 07/06/2025 9:18 AM TRACTOR TRAILER TECHNICIAN PCLX Comment: Glucose results collected from venous catheters may be falsely elevated. Site Venline 07/06/2025 9:18 AM TRACTOR TRAILER TECHNICIAN PCLX Blood 07/06/2025 9:14 AM TRACTOR TRAILER TECHNICIAN 07/06/2025 9:18 AM TRACTOR TRAILER TECHNICIAN us Unknown Provider LAB POCT ORDERABLES-MANUAL Hayley l Result POC [facility] [address] [place] [address], [facility] PCLX [facility] [address] [place] [address] documented in this encounter Visit Diagnoses Diagnosis Atherosclerotic Heart Disease Of [place] Coronary Artery Without Angina Pectoris- Primary Atherosclerotic Heart Disease Of [place] Coronary Artery Without Angina Pectoris documented in this encounter Admitting Diagnoses Diagnosis Atherosclerotic Heart Disease Of [place] Coronary Artery Without Angina Pectoris documented in this encounter Administered Medications Inactive Administered Medications - up to 3 most recent administrations Medication Order MAR Action Action Date Dose Rate Site acetaminophen suppository 650 mg (TylenoL) 650 mg, rectal, Every 6 hours PRN, mild pain or score 1-3 of 10, Starting on Sat07/06/25 at 1120, Postprocedure (CV), If unable to give orally acetaminophen tablet 1,000 mg (TylenoL) 1,000 mg, oral, Every 6 hours PRN, mild pain or score 1-3 of 10, Starting on Sat07/06/25 at 1120, Postprocedure (CV) fentaNYL injection 25 mcg (Sublimaze) 25 mcg, intravenous, Every 2 min PRN, sedation, Administer over 1 minute immediately prior to the procedure. May repeat every 2 minutes to a maximum of 200 mcg, until pain score of 3 or less, or until the patient meets the pain comfort goal, or RASS 0 to -2. Do not give if respiratory rate is less than 8 breaths/minute., Starting on Sat07/06/25 at 1000, Intraprocedure (CV), Subsequent doses Given 07/06/2025 10:18 AM TRACTOR TRAILER TECHNICIAN 25 mcg Given 07/06/2025 10:07 AM TRACTOR TRAILER TECHNICIAN 25 mcg Given 07/06/2025 10:02 AM TRACTOR TRAILER TECHNICIAN 50 mcg fentaNYL injection 50 mcg (Sublimaze) 50 mcg, intravenous, Once as needed, sedation, Starting on Sat07/06/25 at 1000, For 1 dose, Intraprocedure (CV), IV Push, Initial dose flumazeniL injection 0.2 mg (Romazicon) 0.2 mg, intravenous, Once as needed, reversal, Starting on Sat07/06/25 at 1000, For 1 dose, Intraprocedure (CV), Administer once if patient has a RASS score of -4, -5 and has a respiratory rate less than 8 breaths/minute. midazolam (PF) injection 0.25 mg (Versed) 0.25 mg, intravenous, Every 2 min PRN, sedation, RASS -2, Starting on Sat07/06/25 at 1000, Intraprocedure (CV), May repeat every 2 minutes to a maximum of 5 mg. Do not give if respiratory rate is less than 8 breaths/minute. Given 07/06/2025 10:18 AM TRACTOR TRAILER TECHNICIAN 0.5 mg Given 07/06/2025 10:07 AM TRACTOR TRAILER TECHNICIAN 0.5 mg Given 07/06/2025 10:02 AM TRACTOR TRAILER TECHNICIAN 1 mg midazolam (PF) injection 0.5 mg (Versed) 0.5 mg, intravenous, Once as needed, sedation, Starting on Sat07/06/25 at 1000, For 1 dose, Intraprocedure (CV) midazolam (PF) injection 0.5 mg (Versed) 0.5 mg, intravenous, Every 2 min PRN, sedation, RASS -1, Starting on Sat07/06/25 at 1000, Intraprocedure (CV), May repeat every 2 minutes for a maximum of 5 mg. Do not give if respiratory rate is less than 8 breaths/minute. midazolam (PF) injection 1 mg (Versed) 1 mg, intravenous, Every 2 min PRN, sedation, RASS 0, Starting on Sat07/06/25 at 1000, Intraprocedure (CV), May repeat every 2 minutes for a maximum of 5 mg. Do not give if respiratory rate is less than 8 breaths/minute. NaCl 0.9% infusion 20 mL/hr, intravenous, Once as needed, to keep vein open, Starting on Sat07/06/25 at 1000, For 1 dose, Intraprocedure (CV) naloxone injection 0.2 mg (Narcan) 0.2 mg, intravenous, Once as needed, respiratory depression, Starting on Sat07/06/25 at 1000, For 1 dose, Intraprocedure (CV), Administer once if patient has a RASS score of -4, -5 and has a respiratory rate less than 8 breaths/minute. ondansetron (PF) injection 4 mg (Zofran) 4 mg, intravenous, Once as needed, nausea, Starting on Sat07/06/25 at 1120, For 1 dose, Postprocedure (CV), First line option sodium chloride 0.9 % injection 10 mL 10 mL, intravenous, As needed, line care, Starting on Sat07/06/25 at 1000, Intraprocedure (CV), Peripheral Intravenous Catheter and Rapid Infusion Catheter, prior to blood sampling, post blood transfusion or post blood sampling sodium chloride 0.9 % injection 3 mL 3 mL, intravenous, As needed, line care, Starting on Sat07/06/25 at 1000, Intraprocedure (CV), Prior to and following infusion and between multiple consecutive infusions: sodium chloride 0.9 % injection sodium chloride 0.9 % injection 3 mL 3 mL, intravenous, Every 12 hours scheduled, First dose on Sat07/06/25 at 2100, Intraprocedure (CV), Peripheral Intravenous Catheter and Rapid Infusion Catheter, when no infusion to maintain patency documented in this encounter Active and Recently Administered Medications Due to Daylight Saving Time, this section may contain times in both CDT and TRACTOR TRAILER TECHNICIAN. Scheduled Medication Order 07/04/2025 07/05/2025 07/06/2025 sodium chloride 0.9 % injection 3 mL 3 mL, intravenous, Every 12 hours scheduled, First dose on Sat07/06/25 at 2100, Intraprocedure (CV), Peripheral Intravenous Catheter and Rapid Infusion Catheter, when no infusion to maintain patency PRN Medication Order 07/04/2025 07/05/2025 07/06/2025 acetaminophen suppository 650 mg (TylenoL)(Linked Group 1) 650 mg, rectal, Every 6 hours PRN, mild pain or score 1-3 of 10, Starting on Sat07/06/25 at 1120, Postprocedure (CV), If unable to give orally acetaminophen tablet 1,000 mg (TylenoL)(Linked Group 1) 1,000 mg, oral, Every 6 hours PRN, mild pain or score 1-3 of 10, Starting on Sat07/06/25 at 1120, Postprocedure (CV) fentaNYL injection 25 mcg (Sublimaze) 25 mcg, intravenous, Every 2 min PRN, sedation, Administer over 1 minute immediately prior to the procedure. May repeat every 2 minutes to a maximum of 200 mcg, until pain score of 3 or less, or until the patient meets the pain comfort goal, or RASS 0 to -2. Do not give if respiratory rate is less than 8 breaths/minute., Starting on Sat07/06/25 at 1000, Intraprocedure (CV), Subsequent doses 1002 (Given - Provid er: Erica Packer R.N.)1007 (Given - Provider: Erica Packer R.N.)1018 (Given - Provider: Erica Packer R.N.) fentaNYL injection 50 mcg (Sublimaze) 50 mcg, intravenous, Once as needed, sedation, Starting on e 07/06/25 at 1000, For 1 dose, Intraprocedure (CV), IV Push, Initial dose flumazeniL injection 0.2 mg (Romazicon) 0.2 mg, intravenous, Once as needed, reversal, Starting on Sat07/06/25 at 1000, For 1 dose, Intraprocedure (CV), Administer once if patient has a RASS score of -4, -5 and has a respiratory rate less than 8 breaths/minute. heparin (porcine) 1,000 unit/mL injection (CANCELED) Code/trauma/sedation medication, Starting on Sat07/06/25 at 1009, Intraprocedure (CV) 1009 (Given - Provid er: Erica Packer R.N.) iohexoL 350 mg iodine/mL solution (Omnipaque) (CANCELED) Code/trauma/sedation medication, Starting on Sat07/06/25 at 1023, Intraprocedure (CV) 1023 (Given - Provid er: Leo Prescott M.D.) lidocaine 10 mg/mL (1 %) injection (Xylocaine) (CANCELED) Code/trauma/sedation medication, Starting on Sat07/06/25 at 1006, Intraprocedure (CV) 1006 (Given - Provid er: Ramón Scott, B.Ch., B.A.O.) midazolam (PF) injection 0.25 mg (Versed) 0.25 mg, intravenous, Every 2 min PRN, sedation, RASS -2, Starting on Sat07/06/25 at 1000, Intraprocedure (CV), May repeat every 2 minutes to a maximum of 5 mg. Do not give if respiratory rate is less than 8 breaths/minute. 1002 (Given - Provid er: Erica Packer R.N.)1007 (Given - Provider: Erica Packer R.N.)1018 (Given - Provider: Erica Packer R.N.) midazolam (PF) injection 0.5 mg (Versed) 0.5 mg, intravenous, Once as needed, sedation, Starting on Sat07/06/25 at 1000, For 1 dose, Intraprocedure (CV) midazolam (PF) injection 0.5 mg (Versed) 0.5 mg, intravenous, Every 2 min PRN, sedation, RASS -1, Starting on Sat07/06/25 at 1000, Intraprocedure (CV), May repeat every 2 minutes for a maximum of 5 mg. Do not give if respiratory rate is less than 8 breaths/minute. midazolam (PF) injection 1 mg (Versed) 1 mg, intravenous, Every 2 min PRN, sedation, RASS 0, Starting on Sat07/06/25 at 1000, Intraprocedure (CV), May repeat every 2 minutes for a maximum of 5 mg. Do not give if respiratory rate is less than 8 breaths/minute. NaCl 0.9% infusion 20 mL/hr, intravenous, Once as needed, to keep vein open, Starting on Sat07/06/25 at 1000, For 1 dose, Intraprocedure (CV) naloxone injection 0.2 mg (Narcan) 0.2 mg, intravenous, Once as needed, respiratory depression, Starting on Sat07/06/25 at 1000, For 1 dose, Intraprocedure (CV), Administer once if patient has a RASS score of -4, -5 and has a respiratory rate less than 8 breaths/minute. nitroglycerin SL tablet (Nitrostat) (CANCELED) Code/trauma/sedation medication, Starting on Sat07/06/25 at 1005, Intraprocedure (CV) 1005 (Given - Provid er: Erica Packer R.N.) ondansetron (PF) injection 4 mg (Zofran) 4 mg, intravenous, Once as needed, nausea, Starting on Sat07/06/25 at 1120, For 1 dose, Postprocedure (CV), First line option sodium chloride 0.9 % injection 10 mL 10 mL, intravenous, As needed, line care, Starting on Sat07/06/25 at 1000, Intraprocedure (CV), Peripheral Intravenous Catheter and Rapid Infusion Catheter, prior to blood sampling, post blood transfusion or post blood sampling sodium chloride 0.9 % injection 3 mL 3 mL, intravenous, As needed, line care, Starting on Sat07/06/25 at 1000, Intraprocedure (CV), Prior to and following infusion and between multiple consecutive infusions: sodium chloride 0.9 % injection Linked Groups Order Group 1: acetaminophen tablet 1,000 mg (TylenoL)Jump to med 1,000 mg, oral, Every 6 hours PRN, mild pain or score 1-3 of 10, Starting on Sat07/06/25 at 1120, Postprocedure (CV) Or acetaminophen suppository 650 mg (TylenoL)Jump to med 650 mg, rectal, Every 6 hours PRN, mild pain or score 1-3 of 10, Starting on Sat07/06/25 at 1120, Postprocedure (CV), If unable to give orally documented in this encounter Care Teams Patient Accounts Coordinator Relationship Specialty Start Date End Date Elsewhere, Pcp PCP - General Internal Medicine 05/06/24 documented as of this encounter
--- OUTSIDE RECORDS SUMMARY | 2025-07-06 10:30 | XMS_ITS | Encounter Summary ---
Author Organization [facility] Address [address] [place] [address] Care Team Providers Care Motor Home Electrical Foreman Name Role Phone Elsewhere, Pcp Primary Care Provider Unavailabl e Encounter Details Date Type Department Care Team (Late st Contact Info) Description 07/06/2025 10:30 AM PROTECTOR PLATE ATTACHER - 07/06/2025 11:45 AM PROTECTOR PLATE ATTACHER Surgery Division of Cardiovascular Diseases in [place], [place] [address] [place] [phone] Leo Prescott M.D. [address] [place] [phone] Coronary Angiography Social History Tobacco Use Types Packs/Day Years [...] needed for daily living? Patient declined 05/16/2025 [facility] Utilities Answer Date Recorded In the past 12 months has th [employer] electric, gas, oil, or water company threatened to shut off services in your home? Patient declined 05/16/2025 Housing Stability Answer Date Recorded What is your living situation today? Patient dec lined 05/16/2025 Sex and Gender Information Value Date Recorded Sex Assigned at Male 05/24/2025 2:43 PM CDT Legal Sex Male 4:01 PM PROTECTOR PLATE ATTACHER Gender Identity Male 05/24/2025 2:43 PM CDT Sexual Orientation Straight 05/24/2025 2: 43 PM CDT documented as of this encounter Last Filed Vital Signs Vital Sign Reading Time Taken Comments Blood Pressure 129/75 07/06/2025 11:33 AM PROTECTOR PLATE ATTACHER Pulse 65 07/06/2025 11:33 AM PROTECTOR PLATE ATTACHER Temperature 36.5 C (97.7 F) 07/06/2025 9:10 AM PROTECTOR PLATE ATTACHER Respiratory Rate 14 07/06/2025 9:10 AM PROTECTOR PLATE ATTACHER Oxygen Saturation 98% 07/06/2025 11: 33 AM PROTECTOR PLATE ATTACHER Inhaled Oxygen Concentration - - Weight 85.2 kg (187 lb 13.3 oz) 07/06/2025 9:05 AM PROTECTOR PLATE ATTACHER Height 172 cm (5' 7.72) 07/06/2025 9:05 AM PROTECTOR PLATE ATTACHER Body Mass Index 28.8 07/06/2025 9:05 AM PROTECTOR PLATE ATTACHER documented in this encounter Discharge Instructions * [...] mg tabletIndication s:Atheroscleroti c Heart Disease Of [place] Coronary Artery Without Angina Pectoris Take 1 [...] GLUCOSE POCT, B Routine 07/06/2025 10:59 AM PROTECTOR PLATE ATTACHER CARDIAC CATHETERIZATION Routine 07/06/20 10:25 AM PROTECTOR PLATE ATTACHER Atherosclerotic Heart Disease Of [place] Coronary Artery Without Angina Pectoris GLUCOSE POCT, B Routine 07/06/2025 9:14 AM PROTECTOR PLATE ATTACHER documented in this encounter Results * (ABNORMAL) Glucose, POCT (07/06/2025 10:59 AM PROTECTOR PLATE ATTACHER) Glucose, POCT, B 252(H) 70 - 140 mg/dL 07/06/2025 11:02 AM PROTECTOR PLATE ATTACHER PCLX Site Capillary 07/06/2025 11:02 AM PROTECTOR PLATE ATTACHER PCLX Blood 07/06/2025 10:5 9 AM PROTECTOR PLATE ATTACHER 07/06/2025 11:03 AM PROTECTOR PLATE ATTACHER us Unknown Provider LAB POCT ORDERABLES-MANUAL Hayley l Result POC [facility] [address] [place] [address], [facility] PCLX [facility] [address] [place] [address] * CORONARY ANGIOGRAPHY (07/06/2025 10:25 AM PROTECTOR PLATE ATTACHER) Anatomical Region Laterality Modality X-Ray Angiograph y 07/06/2025 10:0 3 AM PROTECTOR PLATE ATTACHER Narrative 07/06/2025 1:39 PM PROTECTOR PLATE ATTACHER For the complete report, see the Order-Level Documents. PROCEDURE TYPES 1. CORONARY ANGIOGRAPHY FINAL DIAGNOSIS 1. Coronary artery atherosclerosis PRE-PROCEDURE DIAGNOSIS 1. Atherosclerotic Heart Disease Of [place] Coronary Artery Without Angina Pectoris CORONARY DIAGNOSTIC [...] PRE-PROCEDURE DIAGNOSIS 1. Atherosclerotic Heart Disease Of [place] Coronary Artery Without AnginaPectoris CORONARY DIAGNOSTIC SUMMARY [...] * (ABNORMAL) Glucose, POCT (07/06/2025 9:14 AM PROTECTOR PLATE ATTACHER) Glucose, POCT, B 262(H) 70 - 140 mg/dL 07/06/2025 9:18 AM PROTECTOR PLATE ATTACHER PCLX Comment: Glucose results collected from venous catheters may be falsely elevated. Site Venline 07/06/2025 9:18 AM PROTECTOR PLATE ATTACHER PCLX Blood 07/06/2025 9:14 AM PROTECTOR PLATE ATTACHER 07/06/2025 9:18 AM PROTECTOR PLATE ATTACHER us Unknown Provider LAB POCT ORDERABLES-MANUAL Hayley l Result POC [facility] [address] [place] [address], [place] PCLX [facility] [address] [place] [address] documented in this encounter Visit Diagnoses Diagnosis Atherosclerotic Heart Disease Of [place] Coronary Artery Without Angina Pectoris documented in this encounter Admitting Diagnoses Diagnosis Atherosclerotic Heart Disease Of [place] Coronary Artery Without Angina Pectoris documented in [...] (CV), Subsequent doses Given 07/06/2025 10:18 AM PROTECTOR PLATE ATTACHER 25 mcg Given 07/06/2025 10:07 AM PROTECTOR PLATE ATTACHER 25 mcg Given 07/06/2025 10:02 AM PROTECTOR PLATE ATTACHER 50 mcg fentaNYL injection 50 mcg (Sublimaze) [...] 8 breaths/minute. heparin (porcine) 1,000 unit/mL injection Code/trauma/sedation medication, Starting on Sat07/06/25 at 1009, Intraprocedure (CV) Given 07/06/2025 10:09 AM PROTECTOR PLATE ATTACHER 4,000 Units iohexoL 350 mg iodine/mL solution (Omnipaque) Code/trauma/sedation medication, Starting on Sat07/06/25 at 1023, Intraprocedure (CV) Given 07/06/2025 10:23 AM PROTECTOR PLATE ATTACHER 60 mL lidocaine 10 mg/mL (1 %) injection (Xylocaine) Code/trauma/sedation medication, Starting on Sat07/06/25 at 1006, Intraprocedure (CV) Given 07/06/2025 10:06 AM PROTECTOR PLATE ATTACHER 2 mL Right Wrist midazolam (PF) injection 0.25 mg (Versed) 0.25 mg, intravenous, Every 2 min PRN, sedation, RASS -2, Starting on Sat07/06/25 at 1000, Intraprocedure (CV), May repeat every 2 minutes to a maximum of 5 mg. Do not give if respiratory rate is less than 8 breaths/minute. Given 07/06/2025 10:18 AM PROTECTOR PLATE ATTACHER 0.5 mg Given 07/06/2025 10:07 AM PROTECTOR PLATE ATTACHER 0.5 mg Given 07/06/2025 10:02 AM PROTECTOR PLATE ATTACHER 1 mg midazolam (PF) injection 0.5 mg [...] than 8 breaths/minute. nitroglycerin SL tablet (Nitrostat) Code/trauma/sedation medication, Starting on Sat07/06/25 at 1005, Intraprocedure (CV) Given 07/06/2025 10:05 AM PROTECTOR PLATE ATTACHER 0.4 mg Tongue ondansetron (PF) injection 4 mg (Zofran) 4 [...] may contain times in both CDT and PROTECTOR PLATE ATTACHER. Scheduled Medication Order 07/04/2025 07/05/2025 07/06/2025 sodium [...] 1006 (Given - Provid er: Ramón Scott, B.Onofre., B.A.O.) midazolam (PF) injection 0.25 mg (Versed) 0.25 mg, intravenous, Every 2 min PRN, sedation, RASS -2, Starting on Sat07/06/25 at 1000, Intraprocedure (CV), May repeat every 2 minutes to a maximum of 5 mg. Do not give if respiratory rate is less than 8 breaths/minute. 1002 (Given - Provid er: Erica Packre R.N.)1007 (Given - Provider: Erica Packer R.N.)1018 [...] orally documented in this encounter Care Teams Motor Home Electrical Foreman Relationship Specialty Start Date End Date Elsewhere, Pcp PCP - General Internal Medicine 05/06/24 documented as of this encounter
--- OUTSIDE RECORDS SUMMARY | 2025-07-14 10:00 | XMS_ITS | Encounter Summary ---
Author Organization [facility] Address [address] [place] [id number] Care Team Providers Care Food Preparer Name Role Phone Elsewhere, Pcp Primary Care Provider Unavailabl e Reason for Referral * Outpatient (Routine) - Authorized Specialty Diagnoses / Procedures Referred By Syeda marcum Referred To Contact Sleep Medicine Mario Crocker III, M.D. 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 [address] [place] [phone] Phone: tel: fax: [facility] Referral ID Status Reason Start Date Expiration Date V isits Requested Visits Authorized [id number] Authorized 07/14/2025 10/14/2026 1 1 INE ATTENDANT Reason for Visit * Outpatient (Routine) - Closed Specialty Diagnoses / Procedures Referred By Syeda marcum Referred To Contact Sleep Medicine Diagnoses Sleep Apnea Unspecified Marco Webb M.D., Ph.D. [address] [place] [address] Phone: tel: fax: [facility] Referral ID Status Reason Start Date Expiration Date V isits Requested Visits Authorized [id number] Closed Specialty Services Required 05/21/2025 11/20/2026 1 1 Encounter Details Date Type Department Care Team (Late st Contact Info) Description 07/14/2025 10:00 AM [facility] in [place], [place] [address] [place] [phone] Mario Crocker III, M.D. [address] [place] [phone] Apnea Sleep Obstructive (Primary Dx); Chronic Insomnia Disorder; Inadequate Sleep Hygiene; Sleep Apnea Unspecified; Diabetes Mellitus Type 2 (HCC); Chronic Kidney Disease Stage 2 Glomerular Filtration Rate 60 To 89 Social History Tobacco Use Types Packs/Day Years [...] needed for daily living? 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 - 07/14/2025 10:00 AM CST SUBJECTIVE REASON FOR CONSULT Mr. Perez is referred by Marco Webb M.D., Ph.D.. To evaluate make recommendations concerning sleep problems. Consult conducted via real-time audio/video technology by Mario Crocker III, M.D. in [facility] to the patient in the patient's home. HISTORY OF PRESENT ILLNESS Marco Perez is a 65 y.o. male is alone home during this visit. He does not currently have a bed partner. He says sleep was normal in his mid 20s when he would wake up holding his breath finding he could not catch his breath for awhile. His 1st sleep study was in his mid 40s and CPAP was recommended buthe could not tolerate it. He used a fan for awhile seem to help his breathing. The main problem he is concerned about his since his early 40s he has had difficulty falling asleep. He calls 1 sleep laboratory study where he did not think he slept at all was told there was significant sleep recorded. He does not trust outcome study. He says many many medicines have been tried. Two years ago he tried Ambien and had quite significant amnestic behavior, driving his car to get a pizza and being pulled over by law enforcement told that they smelled steal alcohol on his breath. Now under the care of his primary physician he is on his current regimen of alprazolam 0.5 mg about9:00 p.m., amitriptyline 25 mg about 9:30 p.m. in bedtime 10:00 p.m.. If frequently takes an hour and a half to go to sleep and he finds that his mind is quite busy preoccupied with a lot of health things that has been going on or other things. He routinely sleeps about 4 hours waking up spontaneously at 3:30 a.m. in the morning to go to the bathroom. Usually gets back to sleep with the an 1/2 hour and sleeps from 4:00 a.m. to 6:00 a.m. when he gets up to start his day, going to his son's houseto help care for a grandson who has quite significant neuro diversity problems. He sets an alarm for 6 in the morning but frequently wakes up before the alarm. He does check the clock during the night. Interestingly he has 1 cup of coffee in the morning and takes a quick shower and feels alert all day, not struggling with the excessive fatigue or sleepiness, and getting a little bit of a 2nd wind in the evening. He does not use any alcohol. In the past he has had severe restless legs symptomatology but now perhaps once or twice a month hegets some restless legs but not enough to be a significant problem. He is not aware of any parasomnia behavior but he did awaken while talking this morning. STANDARDIZED INSTRUMENTS: EPWORTH SCORE: (Patient-Rptd) 1 (07/14/25 0951 : Patient, Online Services) Scores of less than 10 are considered within the normal range. DETAILS: () - would never doze; 1 - slight chance of dozing; - moderate chance of dozing; 3 - high chance ofdozing) Sitting and readin - Slight chance of dozing Watching TV: 0 - Would never doze Sitting inactive in a public place (e.g. A theater or meetin - Would never doze As a passenger in a car for an hour without a break: 0 - Would never doze Lying down to rest in the afternoon when circumstances permit: 0 - Would never doze Sitting and talking to someone: 0 - Would never doze Sitting quietly after a lunch without alcohol: 0 - Would never doze In a car, while stopped for a few minutes in traffic: 0 - Would never doze Bethany Cheung, A new method for measuring daytime sleepiness: the [place] sleepiness scale. Sleep, 1991. 14(6): p. 540-5. AUDIT: 0 (07/14/25 1000 : Mario Crocker III, M.D.) [place] Score: (Patient-Rptd) 1 (07/14/25 0951 : Patient, Online Services) Insomnia Severity Index Score: (Patient-Rptd) 25 (07/14/25 0951 : Patient, Online Services) International Restless Legs Study Group Severity Scale: (Patient-Rptd) 19 (07/14/25 0951 : Patient,Online Services) Medications Mr. Perez reports he is actually taking: Current Outpatient Medications Medication Sig Dispense Refill ALPRAZolam (Xanax) 0.5 mg tablet Take 1 tablet by mouth at bedtime as needed. amitriptyline (ElaviL) 50 mg tablet Take 25 mg by mouth daily. amLODIPine (Norvasc) 5 mg tablet TAKE 1 TABLET(5 MG) BY MOUTH DAILY 90 tablet 3 aspirin 81 mg chewable tablet Chew 4 tablets (324 mg total) once. Take morning of procedure. aspirin 81 mg chewable tablet Chew 1 tablet (81 mg total) daily. 180 tablet 2 atorvastatin (Lipitor) 40 mg tablet TAKE 1 TABLET(40 MG) BY MOUTH DAILY (Patient not taking: Reported on 06/14/2025) 90 tablet 3 B complex-vitamins (Balanced B-50) tablet Take 1 tablet by mouth daily. (Patient not taking: Reported on 06/14/2025) bempedoic acid 180 mg tablet Take 180 mg by mouth daily. (Patient not taking: Reported on 06/14/2025) 90 tablet 0 cholecalciferol (Vitamin D3) 125 mcg (5,000 Unit) capsule Take 125 mcg by mouth daily. (Patient nottaking: Reported on 06/14/2025) [START ON 07/05/2026] clopidogreL (Plavix) 300 mg tablet Take 1 tablet (300 mg total) by mouth once for 1 dose. 1 tablet 0 Combigan 0.2-0.5 % ophthalmic solution Administer 1 drop into the left eye 2 (two) times a day. ezetimibe (Zetia) 10 mg tablet TAKE 1 TABLET(10 MG) BY MOUTH DAILY 90 tablet 3 fenofibrate (Lofibra) 160 mg tablet Take 160 mg by mouth daily. losartan (Cozaar) 50 mg tablet TAKE 1 TABLET(50 MG) BY MOUTH DAILY 90 tablet 3 metFORMIN XR (Glucophage-XR) 500 mg 24 hr tablet Take 1 tablet by mouth daily. Ozempic 1 mg/dose (4 mg/3 mL) injection Inject 1 mg under the skin once a week. (Patient taking differently: Inject 1 mg under the skin once a week. On hold) No current facility-administered medications for this visit. Allergies Allergen Reactions Fluoxetine Other (see comments) [place] suicidal/agitated with one dose- wanted to jump out of the car Lisinopril Other (see comments) Joint pain fatigue weakness - even a light ladder Prednisone Other (see comments) Suicidal; too agitated Aripiprazole Other (see comments) Had a sore throat and felt like he was going to pass out Morphine Nausea Only Sulfa (Sulfonamide Antibiotics) Hives only, no other systemic symptoms Tizanidine Other (see comments) Legs gave out from underneath him. Won't take again. Azelastine Other (see comments) Other Reaction(s): Other (see comments) The following portions of the patient's history were reviewed and updated as appropriate: allergies, current medications, family history, medical history, social history, surgical history, and problem list. REVIEW OF SYSTEMS REVIEW OF SYSTEMS Family History Problem Relation Name Age of Onset Coronary artery disease Father Coronary artery disease Father Social History Socioeconomic History Marital status: Spouse name: Not on file Number of children: Not on file Years of education: Not on file Highest education level: Not on file Occupational History Not on file Tobacco Use Smoking status: Former Current packs/day: 0.00 Types: Cigarettes Quit date: 1999 Years since quittin. Passive exposure: Past (In my 20's) Smokeless tobacco: Never Tobacco comments: 01/07/25 - Quit over 20 -30 years ago Vaping Use Vaping status: never used Substance and Sexual Activity Alcohol use: Not Currently Drug use: Never Sexual activity: Defer Other Topics Concern Not on file Social History Narrative Not on file Social Drivers of Health Food Insecurity: Patient Declined (05/16/2025) Hunger Vital Sign Worried About Running Out of Food in the Last Year: Patient declined Ran Out of Food in the Last Year: Patient declined Transportation Needs: Patient Declined (05/16/2025) PRAPARE - Transportation Lack of Transportation (Medical): Patient declined Lack of Transportation (Non-Medical): Patient declined Intimate Partner Violence: Not on file Housing Stability: Patient Declined (05/16/2025) Housing Stability Housing: Living Situation: Patient declined OBJECTIVE PHYSICAL EXAMINATION Wt Readings from Last 1 Encounters: 07/06/25 85.2 kg Temp Readings from Last 1 Encounters: 07/06/25 36.5 ??C (Oral) BP Readings from Last 1 Encounters: 07/06/25 151/82 Pulse Readings from Last 1 Encounters: 07/06/25 65 BMI Readings from Last 1 Encounters: 07/06/25 28.80 kg/m?? Appearance: Well groomed, in no apparent distress. Good eye contact. No abnormal movements noted. Consciousness: Alert and oriented, without psychomotor abnormalities. Cooperation: Cooperative, reliable informant. Mood: Euthymic mood, with a mood-congruent and fully-reactive affect. Speech: Of regular rate, rhythm, prosody and volume. Thought Form: Goal-oriented and linear with no indication of a formal-thought disorder. Cognition: Cognition was not formally assessed, but based on the form and content of the interview and discussion appears intact. Attention: No apparent abnormalities in attention or concentration. Fund of Knowledge: Knowledge base appears within normal limits. Abstraction: Abstraction abilities appear within normal limits. Insight: Good insight and motivation. ASSESSMENT / PLAN #1 Chronic Insomnia Disorder #2 Inadequate Sleep Hygiene #3 Sleep Apnea Unspecified #4 Diabetes Mellitus Type 2 (HCC) #5 Chronic Kidney Disease Stage 2 Glomerular Filtration Rate 60 To 89 #6 Apnea Sleep Obstructive Marco Perez is a 65 y.o. male has not least 40 years sleep disturbance. At 1 point he was told he had obstructive sleep apnea but he never tolerated CPAP and has not gone back to that. He had 1 study which suggests presence of sleep state misperception or paradoxical sleep when he did not think he slept at all and was told the PSG recorded sleep. His main complaint now is difficulty falling asleep. His present amitriptyline regimen is acceptable but he still has significant initial insomnia. He would prefer not to take medications for insomnia. He tells me he had ECT a couple of decades ago in his fiancee at that time says changed him substantially though he does not think that is the case. He said he has tried a whole on a different medicines for his anxiety and depression nothing seems to have typically been helpful. He says there is not an active psychiatric management plan at this time He accepted my recommendation that we investigate with a home sleep test. I have ordered a review findings and implications. Regard to his chronic insomnia, I described to him some of the basic components of CBT I and will send those to him through the patient portal. I suspect paradoxical sleep since in spite of what he reports happening at night he has no significant residual daytime sleepiness or fatigue. Depending on how things progress, he maybe a candidate for more extensive CBT I intervention and possibly the insomnia care plan. We collaboratively agreed that a long-term goal would be to get off of asleep aids are at least to minimize them. PATIENT EDUCATION PATIENT EDUCATION Learning needs assessment was performed. No learning barriers were identified. Explained diagnosis and treatment plan. Patient expressed understanding and was able to teach back. I personally spent 60 minutes in care of the patient today. Time includes both non face to face andface to face patient care. Mario Crocker III, M.D. INE ATTENDANT documented in this encounter Plan of Treatment Scheduled Orders Name Type Priority Associated Diagnoses Orde r Schedule Home sleep apnea test (HSAT) Sleep Center Routine Apnea Sleep Obstructive Expected: 07/14/2025, Expires: 10/14/2026 Scheduled Referrals Name Type Priority Associated Diagnoses Order Schedule Sleep Medicine office visit (clinic) Outpatient Referral Routine 1 Occurrence s starting 07/14/2025 until 10/14/2026 documented as of this encounter Visit Diagnoses Diagnosis Apnea Sleep Obstructive- Primary Chronic Insomnia Disorder Inadequate Sleep Hygiene Sleep Apnea Unspecified Diabetes Mellitus Type 2 (HCC) Chronic Kidney Disease Stage 2 Glomerular Filtration Rate 60 To 89 documented in this encounter Care Teams Food Preparer Relationship Specialty Start Date End Date Elsewhere, Pcp PCP - General Internal Medicine 05/06/24 documented as of this encounter
[2025-07-29] VITALS (15 sets, daily range): BP systolic 143–151; BP diastolic 79–89; PULSE 71–78; RESP 5–28; TEMP 36.4; O2SAT 93–99
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
--- OUTSIDE RECORDS SUMMARY | 2025-07-29 19:25 | XMS_ITS | Clinical Summary ---
Author Organization [facility] [place] Address [address] [place] [address] Care Team Providers Care Ambulatory Technologist Name Role Phone Breezy Glynn Primary Care Provider Allergies Active Allergy Reactions Criticality Noted Date Comments Aripiprazole Other 05/07/2013 Other Reaction(s): Other (see comments) Had a sore throat and felt like he was going to pass out Azelastine Other Low 06/22/2019 Other Reaction(s): Other (see comments) Fluoxetine Other High 12/23/2013 Other Reaction(s): Other (see comments) [place] suicidal/agitated with one dose- wanted to jump out of the car Tal[place] suicidal/agitated with one dose [place] suicidal/agitated with one dose- wanted to jump out of the car [place] suicidal/agitated with one dose Lisinopril Other High [...] zoloft wellbutrin Celexa, Effexor, Cymbalta, remeron Depakote, [place], seroquel zyprexa Hyperlipidemia 10/20/2009 Overview (09/10/2024): Intolerable [...] lb 3.2 oz) 09/10/2024 8:06 A M ATHLETIC TRAINER Height 175.3 cm (5' 9) 09/10/2024 8:06 AM ATHLETIC TRAINER Body Mass Index 25.43 09/10/2024 8:06 AM ATHLETIC TRAINER Plan of Treatment Health Maintenance Due Date Last Done Comments Colonoscopy 1959 Eye Exam 1959 Hepatitis C Screening 1959 Lipid Screening 1959 Microalbumin Q12 Month 1959 Depression Assessment (PHQ-2) 1960 Pneumococcal 50+ Years (1 of 2 - PCV) 1978 RSV Vaccines (1 - Risk 50-74 years 1-dose series) 2009 Yearly Review of HCD 2009 Zoster Vaccine (1 of 2) 2009 HgbA1C 06/19/2013 12/18/2012 Adult Tetanus Booster 09/02/2016 09/02/2006 , 03/27/2006, 03/27/2006 COVID-19 Vaccine ( - season) 2025 Influenza Vaccine (#1) 2025 06/30/2008, 2006 Medicare Wellness Visit 06/30/2025 06/30/20 24, 06/03/2023, 03/12/2022, Additional history exists Creatinine 01/11/2026 01/11/2025, 12/31, 01/11/2025, Additional history exists Meningococcal B Vaccine Aged Out No l onger eligible based on patient's age to complete this topic Insurance MEDICARE PART A & B MEDICAID [place] Care Teams Ambulatory Technologist Relationship Specialty Start Date End Date Breezy Glynn [address] [place] [address] PCP - General Family Medicine 07/14/24
--- OUTSIDE RECORDS SUMMARY | 2025-07-29 19:25 | XMS_ITS | Clinical Summary ---
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
--- OUTSIDE RECORDS SUMMARY | 2025-07-29 19:25 | XMS_ITS | Encounter Summary ---
Author Organization [facility] Address [address] [place] [address] Care Team Providers Care Oim Architect Name Role Phone Elsewhere, Pcp Primary Care Provider Unavailabl e Reason for Visit * Reason Comments Med Refill Encounter Details Date Type Department Care Team (Late st Contact Info) Description 07/07/2025 Refill Department of Cardiovascular Medicine in [place], [place] [address] [place] [address] Rupert Jacobs M.D. [address] [place] [address] Med Refill Social History Tobacco Use Types Packs/Day Years [...] needed for daily living? 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
--- OUTSIDE RECORDS SUMMARY | 2025-07-29 19:25 | XMS_ITS | Encounter Summary ---
Author Organization [facility] Address [address] [place] [address] Care Team Providers Care Batch Tester Name Role Phone Elsewhere, Pcp Primary Care Provider Unavailabl e Reason for Visit * Reason Onset Date Comments Next Steps 07/07/2025 Encounter Details Date Type Department Care Team (Latest Contact Info) Description 07/07/2025 Clinical Communication Department of Cardiovascular Medicine in [place], [place] [address] [place] [address] Rupert Jacobs M.D. [address] [place] [address] Next Steps Social History Tobacco Use Types Packs/Day Years [...] needed for daily living? Patient declined 05/16/2025 [facility] Utilities Answer Date Recorded In the past 12 months has [employer] electric, gas, oil, or water company threatened to shut off services in your home? Patient declined 05/16/2025 Housing Stability Answer Date Recorded What is your living situation today? 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 - 07/08/2025 9:55 AM SURGICAL SCRUB TECHNOLOGIST SUBJECTIVE CHIEF COMPLAINT / REASON FOR CALL Next Steps Information Discussed Spoke with patient and confirmed the plan put forth by Dr. Jacobs to med manage his CAD and monitorfor symptoms. Patient is concerned that his heart is a ticking time bomb and thinks something should be done now. Patient would like to speak with Dr. Jacobs to clarify the plan. PLAN Disposition/Recommendation: notified provider and awaiting recommendations Information/Education: patient/caller able to teach back Caller agreeable to plan of care: yes The following references were used: nursing clinical judgement and provider Reynaldo ICAL SCRUB TECHNOLOGIST documented in this encounter Plan of Treatment Not on file documented as of this encounter Visit Diagnoses Not on filedocumented in this encounter Care Teams Batch Tester Relationship Specialty Start Date End Date Elsewhere, Pcp PCP - General Internal Medicine 05/06/24 documented as of this encounter
--- OUTSIDE RECORDS SUMMARY | 2025-07-29 19:25 | XMS_ITS | Encounter Summary ---
Author Organization [facility] Address [address] [place] [address] Care Team Providers Care Mechanical Equipment Test Engineer Name Role Phone Elsewhere, Pcp Primary Care Provider Unavailabl e Reason for Visit * Reason Onset Date Comments Pre-Procedure Question 07/05/2025 Plavix an d aspirin instructions Encounter Details Date Type Department Care Team (Latest Contact Info) Description 07/05/2025 Clinical Communication Department of Cardiovascular Medicine in [place], [place] [address] [place] [phone] Marco Webb M.D., Ph.D. [address] [place] [phone] Pre-Procedure Question (Plavix and aspirin instructions) Social History Tobacco Use Types Packs/Day Years [...] needed for daily living? 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
--- OUTSIDE RECORDS SUMMARY | 2025-07-29 19:26 | XMS_ITS | Encounter Summary ---
Author Organization [facility] Address [address] [place] [address] Care Team Providers Care Comic Book Artist Name Role Phone Elsewhere, Pcp Primary Care Provider Unavailabl e Reason for Referral * Specialty Diagnoses / Procedures Referred By Syeda marcum Referred To Contact Diagnoses Atherosclerotic Heart Disease Of [place] Coronary Artery Without Angina Pectoris Marco Webb M.D., Ph.D. [address] [place] [phone] Phone: tel: fax: [facility] Referral ID Status Reason Start Date Expiration Date Visits Re quested Visits Authorized Reason for Visit * Reason Onset Date Comments Order Request 06/21/2025 Encounter Details Date Type Department Care Team (Latest Contact Info) Description 06/21/2025 Clinical Communication Department of Cardiovascular Medicine in [place], [place] [address] [place] [phone] Marco Webb M.D., Ph.D. [address] [place] [phone] Order Request Social History Tobacco Use Types [...] needed for daily living? Patient declined 05/16/2025 [facility] Utilities Answer Date Recorded In the past 12 months has [email or web address] electric, gas, oil, or water company threatened to shut off services in your home? Patient declined 05/16/2025 Housing Stability Answer Date Recorded What is your living situation today? 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 - 06/22/2025 9:36 AM CDTAddended by: EDGAR RICHARDSON on: 06/22/2025 09:36 AM Modules accepted: Orders * Telephone Encounter - Edgar Richardson, R.N. - 06/22/2025 9:29 AM CDT Information Discussed Contacted Marco Perez regarding questions for upcoming stress test. Per Clinical Communication from 05/27, patient spoke with Dr. Jacobs about the stress test and upcoming angiogram +/-PCI but patient does not recall the conversation. Reiterated that Dr. Jacobs and Dr. Webb would like astress test prior to angiogram +/-PCI and clarified the difference between CT coronary angiogram and diagnostic angiogram. The patient would appreciate a plan update after stress test completed on 06/24-let us know if you want to do an informal phone call, formal virtual appointment, or if the nursing can relay results and plan if stress test is normal. Signed off preprocedure nurse visit per protocol. PLAN Disposition/Recommendation: recommended continue engagement in self-management activities Information/Education: patient/caller able to teach back Caller agreeable to plan of care: yes The following references were used: none documented in this encounter Plan of Treatment Scheduled Referrals Name Type Priority Associated Diagnoses Order Schedule Cardiovascular Disease - Education visit (clinic) Outpatient Referral Routine Atherosclerotic [facility] Disease [facility] [place] Coronary Artery Without Angina Pectoris 1 Occurrences starting 06/22/2025 until 09/22/2026 documented as of this encounter Visit Diagnoses Diagnosis Atherosclerotic Heart Disease [facility] [place] Coronary Artery Without Angina Pectoris- Primary documented in this encounter Care Teams Comic Book Artist Relationship Specialty Start Date End Date Elsewhere, Pcp PCP - General Internal Medicine 05/06/24 documented as of this encounter
--- OUTSIDE RECORDS SUMMARY | 2025-07-29 19:26 | XMS_ITS | Encounter Summary ---
Author Organization [facility] Address [address] [place] [address] Care Team Providers Care Institutional Research Coordinator Name Role Phone Elsewhere, Pcp Primary Care Provider Unavailabl e Reason for Referral * Outpatient (Routine) - Closed Specialty Diagnoses / Procedures Referred By Contac t Referred To Contact Diagnoses Atherosclerotic Heart Disease Of [place] Coronary Artery Without Angina Pectoris Procedures ECG 12 Lead OR EKG 12 LEAD W I&R Marco Webb M.D., Ph.D. 200 [place] [address] Phone: tel: fax: [facility] Region Referral ID Status Reason Start Date Expiration Date Visits Re quested Visits Authorized [id number] Closed 07/01/2025 10/01/2026 1 1 Encounter Details Date Type Department Care Team (Latest Contact Info) Description 07/01/2025 Orders Only Department of Cardiovascular Medicine in [place], [place] 200 [place] [address] Radha Goncalves, R.N. [address] [place] [phone] Atherosclerotic Heart Disease Of [place] Coronary Artery Without Angina Pectoris (Primary Dx) Social History Tobacco Use Types Packs/Day Years [...] needed for daily living? 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 LAB BLOOD ADD-ON Fin al Result [facility] [address] [place] [address], [place] OWAT [facility] [address] [place] [address] * Potassium (07/05/2025 2:08 PM FOIL OPERATOR) Potassium, P 4.6 3.6 - 5.2 mmol/L 07/05/2025 6:31 PM FOIL OPERATOR OWAT Blood (Blood, Venous) 07/05/2025 2:08 PM FOIL OPERATOR 07/05/2025 5:43 PM FOIL OPERATOR Marco Webb M.D., Ph.D. LAB BLOOD ADD-ON Fin al Result Performing Organization Address [facility] Co de Phone Number [facility] [address] [place] [address], [place] OWAT [facility] [address], [place] [address] * Creatinine with Estimated GFR (07/05/2025 2:08 PM FOIL OPERATOR) Creatinine 0.98 0.74 - 1.35 mg/dL 07/05/2025 6:31 PM FOIL OPERATOR OWAT Estimated GFR (eGFR) 85 >=60 mL/min/BSA 07/05/2025 6:31 PM FOIL OPERATOR OWAT Comment: Estimated GFR calculated using the 2020 CKD_EPI creatinine equation. Blood (Blood, Venous) 07/05/2025 2:08 PM FOIL OPERATOR 07/05/2025 5:43 PM FOIL OPERATOR Marco Webb M.D., Ph.D. LAB BLOOD ADD-ON Fin al Result Performing Organization Address City/[facility]/ZIP Co de Phone Number [facility] [address] [place] [address], [place] OWAT [facility] [address], [place] [address] * CBC without Differential (07/05/2025 2:08 PM FOIL OPERATOR) Hemoglobin 13.6 13.2 - 16.6 g/dL 07/05/2025 5:44 PM FOIL OPERATOR OWAT Hematocrit 40.0 38.3 - 48.6 % 07/05/2025 5:44 PM FOIL OPERATOR OWAT Erythrocytes 4.36 4.35 - 5.65 x10(12)/L 07/05/2025 5:44 PM FOIL OPERATOR OWAT MCV 91.7 78.2 - 97.9 fL 07/05/2025 5:44 PM FOIL OPERATOR OWAT RBC Distrib Width 12.2 11.8 - 14.5 % 07/05/2025 5:44 PM FOIL OPERATOR OWAT Platelet Count 257 135 - 317 x10(9)/L 07/05/2025 5:44 PM FOIL OPERATOR OWAT Leukocytes 5.3 3.4 - 9.6 x10(9)/L 07/05/2025 5:44 PM FOIL OPERATOR OWAT Blood (Blood, Venous) 07/05/2025 2:08 PM FOIL OPERATOR 07/05/2025 5:40 PM FOIL OPERATOR us Marco Webb M.D., Ph.D. LAB BLOOD ADD-ON Fin al Result [facility] [address] [place] [address], [facility] OWAT [facility] [address] [place] [address] * ECG 12 Lead (07/05/2025 2:05 PM FOIL OPERATOR) Ventricular Rate ECG/Min 74 BPM MUSE OR Interval 190 ms MUSE QRSD Interval 88 ms MUSE QT Interval 362 ms MUSE QTC Interval 401 ms MUSE P Hooks 40 degrees MUSE R Hooks 3 degrees MUSE T Wave Hooks 44 degrees MUSE 07/05/2025 2:05 PM FOIL OPERATOR 07/05/2025 2:13 PM FOIL OPERATOR Impressions MUSE - 07/05/2025 2:13 PM FOIL OPERATOR Normal sinus rhythm Poor R wave progression Nonspecific ST and T wave abnormality When compared with ECG of 11-Jan-2025 07:57, Poor R wave progression is now present Reviewed by DEBBIE Ruelas Narrative Procedure Note Anastacio Arriaga M.B.BDwayneS. - 07/05/2025 IMPRESSION: Normal sinus rhythm Poor R wave progression Nonspecific ST and T wave abnormality When compared with ECG of 11-Jan-2025 07:57, Poor R wave progression is now present Reviewed by DEBBIE Ruelas Marco Webb M.D., Ph.D. ECG ORDERABLES Hayley l Result MUSE NA documented in this encounter Visit Diagnoses Diagnosis Atherosclerotic Heart Disease Of [place] Coronary Artery Without Angina Pectoris- Primary Atherosclerotic Heart Disease [facility] [place] Coronary Artery Without Angina Pectoris documented in this encounter Care Teams Institutional Research Coordinator Relationship Specialty Start Date End Date Elsewhere, Pcp PCP - General Internal Medicine 05/06/24 documented as of this encounter
--- OUTSIDE RECORDS SUMMARY | 2025-07-29 19:26 | XMS_ITS | Patient Health Record ---
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
--- OUTSIDE RECORDS SUMMARY | 2025-07-29 19:26 | XMS_ITS | Encounter Summary ---
Author Organization [facility] Address [address] [place] [address] Care Team Providers Care Ore Feeder Name Role Phone Elsewhere, Pcp Primary Care Provider Unavailabl e Reason for Referral * Medication Prior Authorization - Closed Specialty Diagnoses / Procedures Referred By Syeda t Referred To Contact Diagnoses Atherosclerotic Heart Disease Of [place] Coronary Artery Without Angina Pectoris Rupert Jacobs M.D. [address] [place] [phone] Phone: tel: fax: Referral ID Status Reason Start Date Expiration Date Visits Re quested Visits Authorized [id number] Closed 1 1 Encounter Details Date Type Department Care Team (Latest Contact Info) Description 06/22/2025 Clinical Communication Department of Cardiovascular Medicine in [place], [place] [address] [place] [phone] Rupert Jacobs M.D. [address] [place] [phone] Social History Tobacco Use Types Packs/Day Years [...] needed for daily living? Patient declined 05/16/2025 [facility] Utilities Answer Date Recorded In the past 12 months has th e [employer], gas, oil, or water company threatened to shut off services in your home? Patient declined 05/16/2025 Housing Stability Answer Date Recorded What is your living situation today? 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 - 06/22/2025 12:30 PM CDT Images from the original note were not included. Patient is scheduled for coronary angiogram on 06/05/2025. I called him and gave him detailed instruction regarding clopidogrel and aspirin loading. Addendum: 06/06/2025 Patient underwent ICA. It showed the following findings; Summary: Coronary artery dominance is right. Normal left [...] High anterior take off of RCA ostium. Plan: Intensify lipid control. Aspirin 80 mg daily. Tight control of CV risk factors. If still symptomatic, will plan revascularization. Rupert Jacobs MD Cardiovascular Disease Fellow [facility] Pager: [phone] Work phone: [phone] Email: [email or web address] ICAL TESTING SUPERVISOR ICAL TESTING SUPERVISOR documented in this encounter Plan of Treatment Not on file documented as of this encounter Visit Diagnoses Diagnosis Atherosclerotic Heart Disease Of [place] Coronary Artery Without Angina Pectoris- Primary documented in this encounter Care Teams Ore Feeder Relationship Specialty Start Date End Date Elsewhere, Pcp PCP - General Internal Medicine 05/06/24 documented as of this encounter
--- OUTSIDE RECORDS SUMMARY | 2025-07-29 19:26 | XMS_ITS | Encounter Summary ---
Author Organization [facility] Address [address] [place] [address] Care Team Providers Care Systems Support Engineer Name Role Phone Elsewhere, Pcp Primary Care Provider Unavailabl e Encounter Details Date Type Department Care Team (Latest Contact Info) Description 05/27/2025 Results Follow-Up Department of Cardiovascular Medicine in [place], [place] [address] [place] [phone] Marco Webb M.D., Ph.D. [address] [place] [phone] CT Cardiac Angiogram with Coronary Arteries with IV Contrast, US Carotid Bilateral Social History Tobacco Use Types Packs/Day Years [...] needed for daily living? 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
--- OUTSIDE RECORDS SUMMARY | 2025-07-29 19:26 | XMS_ITS | Encounter Summary ---
Author Organization [facility] Address [address] [place] [address] Care Team Providers Care Mastic Worker Name Role Phone Elsewhere, Pcp Primary Care Provider Unavailabl e Encounter Details Date Type Department Care Team (Late st Contact Info) Description 12/19/2012 Historical Ophthalmology [facility] Jagjit Otoole O.D. 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
--- OUTSIDE RECORDS SUMMARY | 2025-07-29 19:26 | XMS_ITS | Encounter Summary ---
Author Organization [facility] Address [address] [place] [address] Care Team Providers Care Rotary Envelope Machine Operator Name Role Phone Elsewhere, Pcp Primary Care Provider Unavailabl e Reason for Visit * Reason Onset Date Comments Previsit Preparation 06/24/2025 Encounter Details Date Type Department Care Team (Latest Contact Info) Description 06/24/2025 Clinical Communication Department of Cardiovascular Medicine in [place], [place] [address] [place] [address] Nury Emery RDwayneNDwayne [address] [place] [phone] Previsit Preparation Social History Tobacco Use Types Packs/Day Years [...] needed for daily living? 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
--- OUTSIDE RECORDS SUMMARY | 2025-07-29 19:26 | XMS_ITS | Encounter Summary ---
Author Organization [facility] Address [address] [place] [address] Care Team Providers Care Balloon Seller Name Role Phone Elsewhere, Pcp Primary Care Provider Unavailabl e Reason for Referral * Outpatient (Routine) - Closed Specialty Diagnoses / Procedures Referred By Syeda t Referred To Contact Diagnoses Asthma Mild Intermittent (HCC) Procedures DX Chest AP or PA and Lateral 2 Views Albin Mercer M.D. [address] [place] [phone] Phone: tel: fax: [facility] Referral ID Status Reason Start Date Expiration Date Visits Re quested Visits Authorized [id number] Closed 07/03/2024 07/03/2025 1 1 Encounter Details Date Type Department Care Team (Late st Contact Info) Description 07/03/2024 Orders Only Division of Pulmonary Medicine in [place], [place] [address] [place] [phone] Prabhakar Vasquez MD Asthma Mild Intermittent (HCC) Social History Tobacco Use Types Packs/Day Years Used Date Smoking Tobacco: Unknown Alcohol Use Standard Drinks/Week Comments Not Currently 0 (1 standard drink = 0.6 oz pur e alcohol) Sex and Gender Information Value Date Recorded Sex Assigned at Male 05/24/2025 2:43 PM CDT Legal 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 Gender Identity Male 05/24/2025 2:43 PM CDT Sexual Orientation Straight 05/24/2025 2: 43 PM CDT documented as of this encounter Plan of Treatment Not on file documented as of this encounter Results * Pulmonary Function Tests (07/27/2024 1:07 PM CULTURE MANAGER) FVC 4.33 L 07/27/2024 2:13 PM CULTURE MANAGER [facility] SUITE FEV1 3.14 L 07/27/2024 2:13 PM CULTURE MANAGER [facility] FEV1/FVC 72.56 % 07/27/2024 2:13 PM CULTURE MANAGER [facility] JKC66-63% 1.85 L/s 07/27/2024 2:13 PM CULTURE MANAGER [facility] PEF PRE 9.10 L/s 07/27/2024 2:13 PM CULTURE MANAGER [facility] PIF PRE 8.00 L/s 07/27/2024 2:13 PM CULTURE MANAGER [facility] Pre FEF50/FIF50 32.96 % 2:13 PM CULTURE MANAGER [facility] FET PRE 14.87 sec 07/27/2024 2:13 PM CULTURE MANAGER [facility] DLCO 26.98 ml/(min*mm Hg) 07/27/2024 2:13 PM CULTURE MANAGER [facility] DLCOc 27.63 ml/(min*mm Hg) 07/27/2024 2:13 PM CULTURE MANAGER [facility] HB 13.80 g(Hb)/dL 07/27/2024 2:13 PM CULTURE MANAGER [facility] VA 6.34 L 07/27/2024 2:13 PM CULTURE MANAGER [facility] 07/27/2024 1:07 PM CULTURE MANAGER Impressions [facility] - 07/27/2024 2:13 PM CULTURE MANAGER Normal study. Narrative Procedure Note Joseph Marie M.D. - 07/27/2024 IMPRESSION: Normal study. us Albin Mercer M.D. PFT ORDERABLES Final Resu lt [facility] NA * DX Chest AP or PA and Lateral 2 Views (07/27/2024 12:33 PM CULTURE MANAGER) Anatomical Region Laterality Modality Chest, Thoracic RST LOS, Tho racic ARZ LOS, Thoracic FLA LOS N/A Digital Radiography Impressions 07/27/2024 12:35 PM CULTURE MANAGER Since 12/18/2012, increased hypertrophic changes of the spine. New mild abdominal aortic calcification. Chest otherwise negative and unchanged. Narrative 07/27/2024 12:35 PM CULTURE MANAGER EXAM: DX CHEST AP OR PA AND LATERAL 2 VIEWS Procedure Note Ellie Locke M.D. - 07/27/2024 EXAM: DX CHEST AP OR PA AND LATERAL 2 VIEWS IMPRESSION: Since 12/18/2012, increased hypertrophic changes of the spine. New mildabdominal aortic calcification. Chest otherwise negative and unchanged. us Albin Mercer M.D. IMG DIAGNOSTIC IMAGING PRO CEDURES Final Result * PUL Exhaled Nitric Oxide (07/27/2024 11:53 AM CULTURE MANAGER) Exhaled NO Oral 29.5 ONBASE Parts per billion (ULN) 39 ONBASE Albin Mercer M.D. PFT ORDERABLES Final Resu lt ONBASE NA * CBC with Differential, Blood (07/27/2024 11:13 AM CULTURE MANAGER) Hemoglobin 13.8 13.2 - 16.6 g/dL 07/27/2024 12:11 PM CULTURE MANAGER DTL Hematocrit 41.9 38.3 - 48.6 % 07/27/2024 12:11 PM CULTURE MANAGER DTL Erythrocytes 4.50 4.35 - 5.65 x10(12)/L 07/27/2024 12:11 PM CULTURE MANAGER DTL MCV 93.1 78.2 - 97.9 fL 07/27/2024 12:11 PM CULTURE MANAGER DTL RBC Distrib Width 12.2 11.8 - 14.5 % 07/27/2024 12:11 PM CULTURE MANAGER DTL Platelet Count 240 135 - 317 x10(9)/L 07/27/2024 12:11 PM CULTURE MANAGER DTL Leukocytes 5.6 3.4 - 9.6 x10(9)/L 07/27/2024 12:11 PM CULTURE MANAGER DTL Neutrophils 3.02 1.56 - 6.45 x10(9)/L 07/27/2024 12:11 PM CULTURE MANAGER DHPM Lymphocytes 1.75 0.95 - 3.07 x10(9)/L 07/27/2024 12:11 PM CULTURE MANAGER DTL Monocytes 0.65 0.26 - 0.81 x10(9)/L 07/27/2024 12:11 PM CULTURE MANAGER DTL Eosinophils 0.15 0.03 - 0.48 x10(9)/L 07/27/2024 12:11 PM CULTURE MANAGER DTL Basophils 0.03 0.01 - 0.08 x10(9)/L 07/27/2024 12:11 PM CULTURE MANAGER DTL Blood (Blood, Venous) 07/27/2024 11:13 AM CULTURE MANAGER 07/27/2024 11:44 AM CULTURE MANAGER Albin Mercer M.D. LAB BLOOD ADD-ON Final Res ult Performing Organization Address City/[facility]/ZIP Co de Phone Number [facility] [address] [place] [address], [facility] DTL [facility] [address] [place] [address] [facility] [address] [place] [address] * Immunoglobulin E (IgE) (07/27/2024 11:12 AM CULTURE MANAGER) Immunoglobulin E (IgE), S 87.9 <=214 kU/L 07/28/2024 6:02 PM CULTURE MANAGER [facility] Blood (Blood, Venous) 07/27/2024 11:12 AM CULTURE MANAGER 07/28/2024 12:11 PM CULTURE MANAGER Albin Mercer M.D. LAB BLOOD ADD-ON Final Res ult [facility] [address] [place] [address] [facility] [address] [place] [address] documented in this encounter Visit Diagnoses Diagnosis Asthma Mild Intermittent (HCC) Asthma Mild Intermittent (HCC) documented in this encounter Care Teams Balloon Seller Relationship Specialty Start Date End Date Elsewhere, Pcp PCP - General Internal Medicine 05/06/24 documented as of this encounter
--- OUTSIDE RECORDS SUMMARY | 2025-07-29 19:26 | XMS_ITS | Clinical Summary ---
Author Organization [facility] Address [address] [place] [id number] Care Team Providers Care Material Lister Name Role Phone Elsewhere, Pcp Primary Care Provider Unavailabl e Source Comments Patient records contain information from all sites at [facility]. For routine questions regarding patient records, call [phone] during business hours, M-F 8:00 AM - 5:00 PM Central Time. Record requests for emergency care only can be directed to [phone] at any time.[facility] Allergies Active Allergy Reactions Criticality Noted Date Comments Aripiprazole Other (see comments) 05/07/2013 Had a sore throat and felt like he was going to pass out Azelastine Other (see comments) Low 06/22/2019 Other Reaction(s): Other (see comments) Fluoxetine Other (see comments) High 12/23/2013 Tryon suicidal/agitated with one dose- wanted to jump [...] from underneath him. Won't take again. Medications * This document contains information received from the source organization and may not represent a complete record from that organization. ALPRAZolam (Xanax) 0.5 mg tablet Take 1 tablet by mouth at bedtime as needed. 05/21/20 14 Active metFORMIN XR (Glucophage-XR ) 500 mg 24 hr tablet Take 1 tablet by mouth daily. 07/03/20 Active amitriptyline (ElaviL) 50 mg tablet Take 25 mg by mouth daily. 03/04/20 24 Active B complex-vitami ns (Balanced B-50) tablet Take 1 tablet by mouth daily. Active cholecalcifero l (Vitamin D3) 125 mcg (5,000 Unit) capsule Take 125 mcg by mouth daily. Active Combigan 0.2-0.5 % ophthalmic solution Administer 1 drop into the left eye 2 (two) times a day. 12/08/19 Active Ozempic 1 mg/dose (4 mg/3 mL) injection Inject 1 mg under the skin once a week. Active amLODIPine (Norvasc) 5 mg tablet TAKE 1 TABLET(5 MG) BY MOUTH DAILY 90 tablet 3 05/22/20 25 Active losartan (Cozaar) 50 mg tablet TAKE 1 TABLET(50 MG) BY MOUTH DAILY 90 tablet 3 05/22/20 25 Active atorvastatin (Lipitor) 40 mg tabletIndicati ons:Hyperlipid emia,Stenosis Aortic Valve Acquired TAKE 1 TABLET(40 MG) BY MOUTH DAILY 90 tablet 3 05/22/20 25 Active Additional Information Patient not taking.Reported on 06/14/2025 bempedoic acid 180 mg tablet Take 180 mg by mouth daily. 90 tablet 05/24/20 Active Additional Information Patient not taking.Reported on 06/14/2025 clopidogreL (Plavix) 300 mg tabletIndicati ons:Atheroscle rotic Heart Disease Of [place] Coronary Artery Without Angina Pectoris Take 1 tablet (300 mg total) by mouth once for 1 dose. 1 tablet 07/05/20 26 026 Active aspirin 81 mg chewable tablet Chew 4 tablets (324 mg total) once. Take morning of procedure. 07/01/20 25 Active fenofibrate (Lofibra) 160 mg tablet Take 160 mg by mouth daily. Active aspirin 81 mg chewable tablet Chew 1 tablet (81 mg total) daily. 180 tablet 2 07/07/20 25 Active ezetimibe (Zetia) 10 mg tablet TAKE 1 TABLET(10 MG) BY MOUTH DAILY 90 tablet 3 07/07/20 25 Active enalapril (Vasotec) 5 mg tablet Take 1 tablet by mouth 2 (two) times a day. 05/07/ 025 Discontinued(D iscontinued by another clinician) aspirin 81 mg chewable tablet Chew 1 tablet daily. 07/13/20 Discontinued(R eorder) zinc gluconate 50 mg tablet Take 50 mg by mouth daily with morning meal. Discontinued(D iscontinued by another clinician) donepeziL (Aricept) 10 mg tablet Take 10 mg by mouth daily. 2nd presciption 02/20/20 Discontinued(E rror) donepeziL (Aricept) 5 mg tablet Take 1 tablet (5 mg) by mouth once daily for 28 days, THEN 2 tablets (10 mg) once daily for 28 days. Take one tablet at bedtime. 12/31/19 Discontinued(E rror) latanoprost (Xalatan) 0.005 % ophthalmic solution Administer 1 drop into the left eye at bedtime. 09/30/19 Discontinued(T herapy completed) ramelteon (Rozerem) 8 mg tablet Take 8 mg by mouth at bedtime. 12/22/19 Discontinued(D iscontinued by another clinician) doxycycline monohydrate (Monodox) 100 mg capsule 06/02/20 Discontinued(T herapy completed) clopidogreL (Plavix) 75 mg tablet Take 1 tablet (75 mg total) by mouth once for 1 dose. 1 tablet 07/06/20 aspirin 325 mg tablet Take 1 tablet (325 mg total) by mouth once for 1 dose. 1 tablet 07/06/20 Discontinued(A lternate therapy) ezetimibe (Zetia) 10 mg tablet Take 1 tablet (10 mg total) by mouth daily. 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 bicuspid aortic valve Apnea Sleep Obstructive 05/05/2024 Overview (05/05/2024): pt states not a [...] zoloft wellbutrin Celexa, Effexor, Cymbalta, remeron Depakote, Schofield, seroquel zyprexa Depression/Jane/Bipolar NOS 05/21/2014 Overview (01/22/2017): Disorder Mood NOS Hypertension 05/21/2014 Overview (01/22/2017): Hypertension (HTN) NOS Hyperlipidemia 10/20/2009 Overview (05/05/2024): Intolerable of simvastatin (although he had done well on the lipitor in the past) Zetia is prescribed today to check labs in 3 months. Encounters * This document contains information received from the source organization and may not represent a complete record from that organization. Date Type Department Care Team Description 5 10:00 AM [facility] in [place], [place] [address] [place] [address] Mario Crocker III, M.D. Apnea Sleep Obstructive (Primary Dx); Chronic Insomnia Disorder; Inadequate Sleep Hygiene; Sleep Apnea Unspecified; Diabetes Mellitus Type 2 (HCC); Chronic Kidney Disease Stage 2 Glomerular Filtration Rate 60 To 89 5 Clinical Communication Department of Cardiovascular Medicine in [place], [place] [address] [place] [address] Rupert Jacobs M.D. Next Steps 5 Refill Department of Cardiovascular Medicine in [place], [place] [address] [place] [address] Rupert Jacobs M.D. Med Refill 5 10:30 AM RESISTOR INSPECTOR - 5 11:45 AM RESISTOR INSPECTOR Surgery Division of Cardiovascular Diseases in [address] [phone] Leo Prescott M.D. Coronary Angiography 5 8:39 AM RESISTOR INSPECTOR - 5 12:45 PM RESISTOR INSPECTOR Hospital Encounter Division of Cardiovascular Diseases in [place] [id number] [place] [phone] Leo Prescott M.D. Atherosclerotic Heart Disease Of [place] Coronary Artery Without Angina Pectoris Discharge Disposition: Home or Self Care 5 1:51 PM RESISTOR INSPECTOR - 5 11:59 PM RESISTOR INSPECTOR Hospital Encounter Department of Laboratory Medicine in [address] [phone] Marco Webb M.D., Ph.D. Atherosclerotic Heart Disease Of [place] Coronary Artery Without Angina Pectoris Discharge Disposition: Home or Self Care 5 1:51 PM RESISTOR INSPECTOR - 5 11:59 PM RESISTOR INSPECTOR Hospital Encounter Department of Laboratory Medicine in [place], [place] [address] [place] [address] Marco Webb M.D., Ph.D. Atherosclerotic Heart Disease Of [place] Coronary Artery Without Angina Pectoris Discharge Disposition: Home or Self Care 5 Clinical Communication Department of Cardiovascular Medicine in [place], [place] [address] [place] [address] Marco Webb M.D., Ph.D. Pre-Procedure Question (Plavix and aspirin instructions) 5 2:30 PM CDT Virtual Visit Department of Cardiovascular Medicine in [place], [place] [address] [place] [phone] Rupert Jacobs M.D. McDonald, Cheryl L, R.N. Atherosclerotic Heart Disease Of [place] Coronary Artery Without Angina Pectoris (Primary Dx); Diabetes Mellitus Type 2 (HCC); Sleep Apnea Unspecified; Hyperlipidemia 5 Orders Only Department of Cardiovascular Medicine in [place], [place] [address] [place] [phone] Radha Goncalves R.N. Atherosclerotic Heart Disease Of [place] Coronary Artery Without Angina Pectoris (Primary Dx) 5 Results Follow-Up Department of Cardiovascular Medicine in [place], [place] [address] [place] [phone] [address] PET [address] Cardiac Perfusion Rest and Stress 5 7:00 AM CDT - 5 11:59 PM CDT Hospital Encounter Department of Radiology, [facility], in [place], [place] [address] [place] [phone] Marco Webb M.D., Ph.D. Atherosclerotic Heart Disease Of [place] Coronary Artery Without Angina Pectoris Discharge Disposition: Home or Self Care 5 Clinical Communication Department of Cardiovascular Medicine in [place], [place] [address] [place] [phone] Nury Emery R.N. Previsit Preparation 5 Clinical Communication Department of Cardiovascular Medicine in [place], [place] [address] [place] [phone] Rupert Jacobs M.D. 5 Clinical Communication Department of Cardiovascular Medicine in [place], [place] [address] [place] [phone] Marco Webb M.D., Ph.D. Order Request 5 9:30 AM CDT Clinical Communication Virtual Review in [place], [place] 200 [place] [address] 5 1:22 PM CDT - 5 11:59 PM CDT Hospital Encounter Department of Radiology, [facility], in [place], [place] [address] [place] [address] Marco Webb M.D., Ph.D. Cerebral Infarction Due To Unspecified Occlusion Or Stenosis Bilateral Carotid Arteries (HCC) Discharge Disposition: Home or Self Care 5 Results Follow-Up Division of Cardiovascular Diseases in [place], [place] [address] [place] [address] Rupert Jacobs M.D. Lower Extremity Arterial (ARNALDO) - Exercise (Claudication) 5 9:33 AM CDT - 5 11:59 PM CDT Hospital Encounter Department of Radiology, [facility] in [place], [place] [address] [place] [address] Marco Webb M.D., Ph.D. Atherosclerotic Heart Disease Of [place] Coronary Artery Without Angina Pectoris Discharge Disposition: Home or Self Care 5 Clinical Communication Department of Cardiovascular Medicine in [place], [place] [address] [place] [address] Rupert Jacobs M.D. Results (Abnormal CTCA result) 5 Results Follow-Up Department of Cardiovascular Medicine in [place], [place] [address] [place] [address] Marco Webb M.D., Ph.D. CT Cardiac Angiogram with Coronary Arteries with IV Contrast, US Carotid Bilateral 5 3:00 PM CDT Telemedicine Department of Cardiovascular Medicine in [place], [place] [address] [place] [address] Lisbeth Goodwin APRN, C.N.P., M.S.N. Abnormal Coronary Calcium Computed Tomography (Primary Dx); Hyperlipidemia; Adverse Effect Of Antihyperlipidemic And Antiarteriosclerotic Drugs Subsequent; Stenosis Carotid Artery Bilateral; Stenosis Aortic Valve Acquired; Diabetes Mellitus Type 2 (HCC) 5 3:10 PM CDT - 5 11:59 PM CDT Hospital Encounter Department of Laboratory Medicine and Pathology, [facility], in [place], [place] [address] [place] [phone] Marco Webb M.D., Ph.D. Atherosclerotic Heart Disease Of [place] Coronary Artery Without Angina Pectoris Discharge Disposition: Home or Self Care 5 2:15 PM CDT Office Visit Department of Cardiovascular Medicine in [place], [place] [address] [place] [phone] Rupert Jacobs M.D. Sleep Apnea Unspecified (Primary Dx); Hyperlipidemia; Stenosis Aortic Valve Acquired; Cerebral Infarction Due To Unspecified Occlusion Or Stenosis Bilateral Carotid Arteries (HCC); Atherosclerotic Heart Disease Of [place] Coronary Artery Without Angina Pectoris 5 10:21 AM CDT - 5 3:09 PM CDT Hospital Encounter Department of Cardiovascular Diseases in [place], [place] [address] [place] [phone] Quan Reeves M.D., Ph.D. Dyspnea On Exertion; Stenosis Aortic Valve Acquired Discharge Disposition: Home or Self Care 5 8:43 AM CDT - 5 10:20 AM CDT Hospital Encounter Department of Vascular Medicine in [place], [place] [address] [place] [phone] Quan Reeves M.D., Ph.D. 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 Dyspnea On Exertion; Stenosis Aortic Valve Acquired Discharge Disposition: Home or Self Care 5 Refill Department of Cardiovascular Medicine in [place], [place] [address] [place] [phone] Rupert Jacobs M.D. Med Refill 5 8:00 AM CDT Clinical Communication Virtual Review in [place], [place] [address] [place] [address] Pre-visit Intake from Last 3 Months Immunizations Immunization Administration Dates Next Due Influenza, Unspecified 09/27/2006 Td Preservative Free (TENIVAC, DECAVAC) 03/27/20 06 Td, (Adult) Unspecified 09/02/2006 influenza trivalent vaccine (6 months and older) (PF) 06/30/2008 Family History Medical History Relation Name Comments Coronary artery disease Father 1 Coronary artery disease Father 2 Relation Name Status Comments Father 1 Alive Father 2 Social History Tobacco Use Types Packs/Day Years [...] declined 05/16/2025 [facility] Utilities Answer Date Recorded In the past 12 months has e [employer], gas, oil, or water [employer] threatened to shut off services in your home? Patient declined 05/16/2025 Housing Stability Answer Date Recorded What is your living situation today? Patient dec lined 05/16/2025 Sex and Gender Information Value Date Recorded Sex Assigned at Male 05/24/2025 2:43 PM CDT Legal Sex Male 4:01 PM RESISTOR INSPECTOR Gender Identity Male 05/24/2025 2:43 PM CDT Sexual Orientation Straight 05/24/2025 2: 43 PM CDT Last Filed Vital Signs Vital Sign Reading Time Taken Comments Blood Pressure 151/82 07/06/2025 12:18 PM RESISTOR INSPECTOR Pulse 65 07/06/2025 12:18 PM RESISTOR INSPECTOR Temperature 36.5 C (97.7 F) 07/06/2025 9:10 AM RESISTOR INSPECTOR Respiratory Rate 14 07/06/2025 9:10 AM RESISTOR INSPECTOR Oxygen Saturation 99% 07/06/2025 12: 18 PM RESISTOR INSPECTOR Inhaled Oxygen Concentration - - Weight 85.2 kg (187 lb 13.3 oz) 07/06/2025 9:05 AM RESISTOR INSPECTOR Height 172 cm (5' 7.72) 07/06/2025 9:05 AM RESISTOR INSPECTOR Body Mass Index 28.8 07/06/2025 9:05 AM RESISTOR INSPECTOR Plan of Treatment Health Maintenance Due Date Last Done Comments CT Colonography 1959 Cologuard 1959 Diabetic Office Visit with Foot Exam 1959 FIT 1959 Hepatitis C Screening 1959 Office Visit for Blood Pressure Check / Re-check 1959 Urine Albumin 1959 Pneumococcal vaccine (50+ years) (1 of 2 - PCV) 1978 DTaP,Tdap,and Td Vaccines (1 - Tdap) 09/03/2006 09/02/2006, 03/27/2006, 03/27/2006 RSV vaccine - (32-36 weeks) or 50+ years (1 - Risk 50-74 years 1-dose series) 2009 Zoster Vaccines (1 of 2) 2009 Diabetic Eye Exam 12/19/2013 12/19/2012 Hepatitis B Vaccines (1 of 3 - Risk 3-dose series) 2019 Colonoscopy 09/04/2020 09/04/2010 (Perf ormed elsewhere) Colorectal Cancer Screening 09/04/2020 Depression Screening (Annual PHQ-2) 09/02/2024 COVID-19 Vaccine ( - 2024- season) 2025 Influenza Vaccine (#1) 2025 06/30/2008, 2006 Hemoglobin A1C 10/09/2025 07/09/2025, 04/2 09/2024, 06/30/2024, Additional history exists Creatinine Level (Kidney Function Test) 07/05/2026 07/05/2025, 05/21/2025, 01/11/2025, Additional history exists Potassium Level 07/05/2026 07/05/2025, 05/03, 01/11/2025, Additional history exists Sodium Level 07/05/2026 07/05/2025, 05/03, 01/11/2025, Additional history exists Lipid (Cholesterol) Screening 09/30/2029 09/30/2024, 04/23/2022, 10/18/2021, Additional history exists Abdominal Aortic Aneurysm (AAA) Screen Completed 06/27/2023, 06/27/2023 Fall Risk Screen (Annual) Completed 07/06/2025 IPV Vaccines Aged Out No longer eligi ble based on patient's age to complete this topic Procedures Procedure Name Priority Date/Time Associated Diagnosis Comments GLUCOSE POCT, B Routine 07/06/2025 10:59 AM RESISTOR INSPECTOR CARDIAC CATHETERIZATION Routine 07/06/2025 10:25 AM RESISTOR INSPECTOR Atherosclerotic Heart Disease Of [place] Coronary Artery Without Angina Pectoris GLUCOSE POCT, B Routine 07/06/2025 9:14 AM RESISTOR INSPECTOR SODIUM, S/P Routine 07/05/2025 2:08 PM RESISTOR INSPECTOR Atherosclerotic Heart Disease Of [place] Coronary Artery Without Angina Pectoris POTASSIUM, S/P Routine 07/05/2025 2:08 PM RESISTOR INSPECTOR Atherosclerotic Heart Disease Of [place] Coronary Artery Without Angina Pectoris CREATININE WITH EGFR, S/P Routine 07/05/2025 2:08 PM RESISTOR INSPECTOR Atherosclerotic Heart Disease Of [place] Coronary Artery Without Angina Pectoris CBC WITHOUT DIFFERENTIAL, B Routine 07/05/2025 2:08 PM RESISTOR INSPECTOR Atherosclerotic Heart Disease Of [place] Coronary Artery Without Angina Pectoris ECG Routine 07/05/2025 2:05 PM RESISTOR INSPECTOR Atherosclerotic Heart Disease Of [place] Coronary Artery Without Angina Pectoris PET CT CARDIAC PERFUSION REST AND STRESS RAD - Routine (most inpatients and all outpatients) 06/24/2025 9:03 AM CDT Atherosclerotic Heart Disease Of [place] Coronary Artery Without Angina Pectoris US CAROTID BILATERAL RAD - Routine (most inpatients and all outpatients) 06/01/2025 3:21 PM CDT Cerebral Infarction Due To Unspecified Occlusion Or Stenosis Bilateral Carotid Arteries (HCC) CT CARDIAC ANGIOGRAM WITH CORONARY ARTERIES WITH IV CONTRAST RAD - Routine (most inpatients and all outpatients) 05/27/2025 11:42 AM CDT Atherosclerotic Heart Disease Of [place] Coronary Artery Without Angina Pectoris BASIC METABOLIC PANEL, S/P Routine 05/21/2025 3:19 PM CDT Atherosclerotic Heart Disease Of [place] Coronary Artery Without Angina Pectoris CARDIOPULMONARY (VO2) EXERCISE TEST Routine 05/21/2025 12:27 PM CDT Dyspnea On Exertion Stenosis Aortic Valve Acquired LOWER EXTREMITY ARTERIAL (ARNALDO) - EXERCISE (CLAUDICATION) Routine 05/21/2025 10:15 AM CDT 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 Glucose, POCT, B 252(H) 70 - 140 mg/dL 07/06/2025 11:02 AM RESISTOR INSPECTOR PCLX Site Capillary 07/06/2025 11:02 AM RESISTOR INSPECTOR PCLX Blood 07/06/2025 10:5 9 AM RESISTOR INSPECTOR 07/06/2025 11:03 AM RESISTOR INSPECTOR us Unknown Provider LAB POCT ORDERABLES-MANUAL Hayley l Result POC [facility] [address] [place] [address], [place] PCLX [facility] [address] [place] [address] * CORONARY ANGIOGRAPHY (07/06/2025 10:25 AM RESISTOR INSPECTOR) Anatomical Region Laterality Modality X-Ray Angiograph y 07/06/2025 10:0 3 AM RESISTOR INSPECTOR Narrative 07/06/2025 1:39 PM RESISTOR INSPECTOR For the complete report, see the Order-Level Documents. PROCEDURE TYPES 1. CORONARY ANGIOGRAPHY FINAL DIAGNOSIS 1. Coronary artery atherosclerosis PRE-PROCEDURE DIAGNOSIS 1. Atherosclerotic Heart Disease Of [place] Coronary Artery Without Angina Pectoris CORONARY DIAGNOSTIC [...] PRE-PROCEDURE DIAGNOSIS 1. Atherosclerotic Heart Disease Of [place] Coronary Artery Without AnginaPectoris CORONARY DIAGNOSTIC SUMMARY [...] the complete report, see the Order-Level Documents. Marco Webb M.D., Ph.D. CV CARDIAC CATH PROC EDURES Final Result * CBC without Differential (07/05/2025 2:08 PM RESISTOR INSPECTOR) Hemoglobin 13.6 13.2 - 16.6 g/dL 07/05/2025 5:44 PM RESISTOR INSPECTOR OWAT Hematocrit 40.0 38.3 - 48.6 % 07/05/2025 5:44 PM RESISTOR INSPECTOR OWAT Erythrocytes 4.36 4.35 - 5.65 x10(12)/L 07/05/2025 5:44 PM RESISTOR INSPECTOR OWAT MCV 91.7 78.2 - 97.9 fL 07/05/2025 5:44 PM RESISTOR INSPECTOR OWAT RBC Distrib Width 12.2 11.8 - 14.5 % 07/05/2025 5:44 PM RESISTOR INSPECTOR OWAT Platelet Count 257 135 - 317 x10(9)/L 07/05/2025 5:44 PM RESISTOR INSPECTOR OWAT Leukocytes 5.3 3.4 - 9.6 x10(9)/L 07/05/2025 5:44 PM RESISTOR INSPECTOR OWAT Blood (Blood, Venous) 07/05/2025 2:08 PM RESISTOR INSPECTOR 07/05/2025 5:40 PM RESISTOR INSPECTOR Marco Webb M.D., Ph.D. LAB BLOOD ADD-ON Fin al Result [facility] [address] [place] [address], [place] OWAT [facility] [place] [address] [place] [address] * Sodium (07/05/2025 2:08 PM RESISTOR INSPECTOR) Sodium, P 136 135 - 145 mmol/L 07/05/2025 6:31 PM RESISTOR INSPECTOR OWAT Blood (Blood, Venous) 07/05/2025 2:08 PM RESISTOR INSPECTOR 07/05/2025 5:43 PM RESISTOR INSPECTOR Marco Webb M.D., Ph.D. LAB BLOOD ADD-ON Fin al Result Performing Organization Address City/[facility]/ZIP Co de Phone Number [facility] [address] [place] [address], [place] OWAT [facility] [place] [address] [place] [address] * Potassium (07/05/2025 2:08 PM RESISTOR INSPECTOR) Potassium, P 4.6 3.6 - 5.2 mmol/L 07/05/2025 6:31 PM RESISTOR INSPECTOR OWAT Blood (Blood, Venous) 07/05/2025 2:08 PM RESISTOR INSPECTOR 07/05/2025 5:43 PM RESISTOR INSPECTOR Marco Webb M.D., Ph.D. LAB BLOOD ADD-ON Fin al Result Performing Organization Address City/[facility]/ZIP Co de Phone Number [facility] [address] [place] [address], [place] OWAT [facility] [place] [address] [place] [address] * Creatinine with Estimated GFR (07/05/2025 2:08 PM RESISTOR INSPECTOR) Creatinine 0.98 0.74 - 1.35 mg/dL 07/05/2025 6:31 PM RESISTOR INSPECTOR OWAT Estimated GFR (eGFR) 85 >=60 mL/min/BSA 07/05/2025 6:31 PM RESISTOR INSPECTOR OWAT Comment: Estimated GFR calculated using the 2020 CKD_EPI creatinine equation. Blood (Blood, Venous) 07/05/2025 2:08 PM RESISTOR INSPECTOR 07/05/2025 5:43 PM RESISTOR INSPECTOR Marco Webb M.D., Ph.D. LAB BLOOD ADD-ON Fin al Result Performing Organization Address [facility] Co de Phone Number [facility] [address] [place] [address], [facility] OWAT [facility] [place] [address] [place] [address] * ECG 12 Lead (07/05/2025 2:05 PM RESISTOR INSPECTOR) Ventricular Rate ECG/Min 74 BPM MUSE AK Interval 190 ms MUSE QRSD Interval 88 ms MUSE QT Interval 362 ms MUSE QTC Interval 401 ms MUSE P [place] 40 degrees MUSE R [place] 3 degrees MUSE T Wave [place] 44 degrees MUSE 07/05/2025 2:05 PM RESISTOR INSPECTOR 07/05/2025 2:13 PM RESISTOR INSPECTOR Impressions MUSE - 07/05/2025 2:13 PM RESISTOR INSPECTOR Normal sinus rhythm Poor R wave progression [...] M.D., Ph.D. ECG ORDERABLES Hayley l Result Performing Organization Address [facility]/ZIP Co de Phone Number MUSE NA * PET CT Cardiac Perfusion Rest and Stress (06/24/2025 9:03 AM CDT) 06/24/2025 7:00 AM CDT Narrative SABA GARCIA - 06/24/2025 10:36 AM CDT See PDF For Result Procedure Note Luc Goldman M.D. - 06/24/2025 See PDF For Result us Marco Webb M.D., Ph.D. IMG NM PROCEDURES Fi nal Result SABA GARCIA NA * US Carotid Bilateral (06/01/2025 3:21 PM CDT) Anatomical Region Laterality Modality Head and Neck, Ultrasound RS T LOS, Ultrasound ARZ LOS, Neuroradiology FLA LOS, Procedural, Vascular Interventional NWWI LOS Bilateral Ultrasound Impressions 06/01/2025 3:32 PM CDT 1. No hemodynamically significant right carotid artery stenosis. 2. 50-69% left ICA stenosis, worse than the prior study. Narrative 06/01/2025 3:32 PM CDT EXAM: US CAROTID BILATERAL Exam performed with color and spectral Doppler analysis. COMPARISON: 09/26/2022 carotid ultrasound from [facility] [place] FINDINGS: RIGHT: Moderate atheromatous plaque in the carotid bifurcation. Doppler evaluation shows no evidence of significant ICA, ECA, or CCA stenosis. Normal flow direction in the vertebral artery. LEFT: Moderate atheromatous plaque in the carotid bifurcation. Doppler evaluation shows no evidence of significant ECA or CCA stenosis. ICA stenosis at 50-69%. Normal flow direction in the vertebral artery. VELOCITIES (cm/sec) Right CCA *psv: 60 cm/s Right ICA psv: 86 cm/s Right ICA edv: 27 cm/s Right ECA psv: 91 cm/s Right ICA/CCA: 1.4 Left CCA *psv: 61 cm/s Left ICA psv: 197 cm/s, previously 127 cm/s Left ICA edv: 66 cm/s Left ECA psv: 111 cm/s Left ICA/CCA: 3.2, previously 1.4 *mid/distal (non-diseased) Measurement of a carotid stenosis, if present, is based on velocity parameters that compare the residual internal carotid luminal diameter with that of the normal distal ICA in accordance with [place] Symptomatic Carotid Endarterectomy Trial (NASCET). Procedure Note Shefali Davis M.D. - 06/01/2025 EXAM: US CAROTID BILATERAL Exam performed with color and spectral Doppler analysis. COMPARISON: 09/26/2022 carotid ultrasound from [facility] FINDINGS: RIGHT: Moderate atheromatous plaque in the carotid bifurcation. Dopplerevaluation shows no evidence of significant ICA, ECA, or CCA stenosis.Normal flow direction in the vertebral artery. LEFT: Moderate atheromatous plaque in the carotid bifurcation. Dopplerevaluation shows no evidence of significant ECA or CCA stenosis. ICAstenosis at 50-69%. Normal flow direction in the vertebral artery. VELOCITIES (cm/sec) Right CCA *psv: 60 cm/s Right ICA psv: 86 cm/s Right ICA edv: 27 cm/s Right ECA psv: 91 cm/s Right ICA/CCA: 1.4 Left CCA *psv: 61 cm/s Left ICA psv: 197 cm/s, previously 127 cm/s Left ICA edv: 66 cm/s Left ECA psv: 111 cm/s Left ICA/CCA: 3.2, previously 1.4 *mid/distal (non-diseased) Measurement of a carotid stenosis, if present, is based on velocityparameters that compare the residual internal carotid luminal diameterwith that of the normal distal ICA in accordance with [place] American[place]ptomatic Carotid Endarterectomy Trial (NASCET). IMPRESSION: 1. No hemodynamically significant right carotid artery stenosis. 2. 50-69% left ICA stenosis, worse than the prior study. us Marco Webb M.D., Ph.D. IMG US PROCEDURES Fi nal Result * CT Cardiac Angiogram with Coronary Arteries with IV Contrast (05/27/2025 11:42 AM CDT) Anatomical Region Laterality Modality Cardiac, Cardiovascular RST LOS, Thoracic ARZ LOS, Cardiovascular FLA LOS N/A Computed Tomography, Compute d Tomography Impressions 05/27/2025 3:[address] PM 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 Possibly short intramural course but no more than mild ostial stenosis. The LAD shows up to severe stenosis proximally with moderately stenotic plaque in the proximal first diagonal branch . Up to mild stenosis in the LCx. 2. CAD-RADS category (based on most severe lesion): 4A (severe stenosis, 70-99%)/ P3 / E 3. Functionally bicuspid aortic valve with partial fusion of the left and right coronary cusps and moderate aortic stenosis in systole and incomplete coaptation in diastole. Moderately thickened aortic valve leaflets. 4. Pulmonary abnormalities are not significantly changed from September 14, 2024 Narrative 05/27/2025 3:06 PM CDT EXAM: CT CARDIAC ANGIOGRAM WITH CORONARY ARTERIES WITH IV CONTRAST Including 3D image post-processing with or without AI assistance. COMPARISON: Chest CT without IV contrast September 14, 2024 CORONARY FINDINGS: Origins: High origin of the right coronary artery which arises from the ascending aorta above the junction of the right and left coronary cusps. Normal origin of the left main coronary artery from the left coronary cusp. Dominance: Right. Left Main Coronary: Of normal caliber and widely patent. Left Anterior Descending: Proximal LAD shows moderately stenotic mostly noncalcified plaque with severe stenosis over a short segment further distally. This is best appreciated on the multiplanar reformations in series 6000. The first diagonal branch moderately stenotic calcification proximally. Diagonal branches are otherwise patent. The mid and distal segments of the LAD are widely patent with no more than minimal stenosis. Left Circumflex: Patent with up to mildly stenotic calcified plaque in the proximal segment. Widely patent obtuse marginal branches. Distal LCx is diminutive in caliber. A small proximal branch arising from the LCx courses between the aorta and the left atrium and dorsal to the SVC. Unclear termination along the right atrial wall. Right Coronary: Mild stenosis of the very proximal RCA where it comes off the aorta, potentially due to a short intramural course. There is otherwise no more than minimally stenotic calcified plaque. Patent posterior descending and posterolateral branches. OTHER CARDIAC FINDINGS: Enlarged left atrium. Qualitatively normal sizes of the other cardiac chambers. Qualitatively mild globally reduced LV systolic function. Negative for resting first-pass myocardial perfusion defects. Negative for intracardiac thrombus or mass. There are 3 aortic valve cusps with partial fusion of the left and right coronary cusps resulting in a functionally bicuspid aortic valve. There is moderate thickening of the aortic valve leaflets and fairly extensive calcifications. Incomplete opening of the leaflets in systole. Incomplete closing in diastole. Maximum double oblique aortic root diameter is 35 mm. Maximum double oblique diameter of the mid ascending aorta is 34 mm. See series 1000. Normal thickness of the pericardium. Physiologic pericardial fluid. NON-CARDIAC FINDINGS: There is mild scarring versus atelectasis in the right middle lobe. Calcified granuloma in the right middle lobe. In addition there several unchanged clusters of tree-in-bud nodularity in both lungs. Central airways are widely patent. No adenopathy in the chest within the [id number]. Upper abdomen is unremarkable within the [id number]. Minimal degenerative changes of the thoracic spine. No suspicious or acute osseous lesions. CAD-RADS CATEGORIES: (based on most severe single lesion; applies to vessels >1.5 mm in diameter) 0: 0%, No stenosis 1: 1-24%, Minimal stenosis (or + remodeling without luminal stenosis) 2: 25-49%, Mild stenosis 3: 50-69%, Moderate stenosis 4A: 70-99%, Severe stenosis 4B: LM>49% or 3-vessel severe disease 5: 100%, Occluded N: Non-diagnostic study Plaque [place]: P1: Mild (CACS1-100/SIS1-2/1-2 vessels mild plaque) P2: Moderate ([id number]/SIS3-4/1-2 vessels moderate; 3 vessels mild plaque) P3: Severe ([id number]/SIS5-7/3 vessels moderate; 1 vessel severe plaque) P4: Extensive (CACS>999/SIS>7/2-3 vessels severe plaque) Modifiers: N: Non-diagnostic segment(s) HRP: High-Risk Plaque* S: Stent G: Graft (CAD-Rads applies to vessel segments distal to graft anastomosis) E: Exceptions *High-Risk Plaque = at least 2 of the following: + remodeling/<30 HU/spotty calcs/napkin-ring sign Procedure Note David Alvarez M.D., Ph.D. - 05/27/2025 EXAM: CT CARDIAC ANGIOGRAM WITH CORONARY ARTERIES WITH IV CONTRAST Including 3D image post-processing with or without AI assistance. COMPARISON: Chest CT without IV contrast September 14, 2024 CORONARY FINDINGS: Origins: High origin of the right coronary artery which arises from theascending aorta above the junction of the right and left coronary cusps.Normal origin of the left main coronary artery from the left coronarycusp. Dominance: Right. Left Main Coronary: Of normal caliber and widely patent. Left Anterior Descending: Proximal LAD shows moderately stenotic mostlynoncalcified plaque with severe stenosis over a short segment furtherdistally. This is best appreciated on the multiplanar reformations inseries 6000. The first diagonal branch moderately stenotic calcificationproximally. Diagonal branches are otherwise patent. The mid and distalsegments of the LAD are widely patent with no more than minimal stenosis. Left Circumflex: Patent with up to mildly stenotic calcified plaque in theproximal segment. Widely patent obtuse marginal branches. Distal LCx isdiminutive in caliber. A small proximal branch arising from the LCxcourses between the aorta and the left atrium and dorsal to the SVC.Unclear termination along the right atrial wall. Right Coronary: Mild stenosis of the very proximal RCA where it comes offthe aorta, potentially due to a short intramural course. There isotherwise no more than minimally stenotic calcified plaque. Patentposterior descending and posterolateral branches. OTHER CARDIAC FINDINGS: Enlarged left atrium. Qualitatively normal sizes of the other cardiacchambers. Qualitatively mild globally reduced LV systolic function.Negative for resting first-pass myocardial perfusion defects. Negative forintracardiac thrombus or mass. There are 3 aortic valve cusps with partial fusion of the left and rightcoronary cusps resulting in a functionally bicuspid aortic valve. There ismoderate thickening of the aortic valve leaflets and fairly extensivecalcifications. Incomplete opening of the leaflets in systole. Incompleteclosing in diastole. Maximum double oblique aortic root diameter is 35 mm.Maximum double oblique diameter of the mid ascending aorta is 34 mm. Seeseries 1000. Normal thickness of the pericardium. Physiologic pericardial fluid. NON-CARDIAC FINDINGS: There is mild scarring versus atelectasis in the right middle lobe.Calcified granuloma in the right middle lobe. In addition there severalunchanged clusters of tree-in-bud nodularity in both lungs. Centralairways are widely patent. No adenopathy in the chest within [id number]-zk-[id number]. Upper abdomen is unremarkable within the vqhok-cw-[id number]. Minimal degenerative changes of the thoracic spine. No suspicious or acuteosseous lesions. CAD-RADS CATEGORIES: (based on most severe single lesion; applies tovessels >1.5 mm in diameter) 0: 0%, No stenosis 1: 1-24%, Minimal stenosis (or + remodeling without luminal stenosis) 2: 25-49%, Mild stenosis 3: 50-69%, Moderate stenosis 4A: 70-99%, Severe stenosis 4B: LM>49% or 3-vessel severe disease 5: 100%, Occluded N: Non-diagnostic study Plaque [place]: P1: Mild (CACS1-100/SIS1-2/1-2 vessels mild plaque) P2: Moderate ([id number]/SIS3-4/1-2 vessels moderate; 3 vessels mildplaque) P3: Severe ([id number]/SIS5-7/3 vessels moderate; 1 vessel severeplaque) P4: Extensive (CACS>999/SIS>7/2-3 vessels severe plaque) Modifiers: N: Non-diagnostic segment(s) HRP: High-Risk Plaque* S: Stent G: Graft (CAD-Rads applies to vessel segments distal to graftanastomosis) E: Exceptions *High-Risk Plaque = at least 2 of the following: + remodeling/<30HU/spotty calcs/napkin-ring sign IMPRESSION: 1. Coronary CT angiography shows aberrant origin of the right coronaryartery which arises from the ascending aorta above the junction of theleft and right coronary sinuses. Possibly short intramural course but nomore than mild ostial stenosis. The LAD shows up to severe stenosisproximally with moderately stenotic plaque in the proximal first diagonalbranch . Up to mild stenosis in the LCx. 2. CAD-RADS category (based on most severe lesion): 4A (severe stenosis,70-99%)/ P3 / E 3. Functionally bicuspid aortic valve with partial fusion of the left andright coronary cusps and moderate aortic stenosis in systole andincomplete coaptation in diastole. Moderately thickened aortic valveleaflets. 4. Pulmonary abnormalities are not significantly changed from September us Marco Webb M.D., Ph.D. IMG CT PROCEDURES Fi nal Result * (ABNORMAL) Basic Metabolic Panel (05/21/2025 3:19 PM CDT) Potassium, S 4.7 3.6 - 5.2 mmol/L 05/21/2025 4:05 PM CDT DTL Sodium, S 137 135 - 145 mmol/L 05/21/2025 4:05 PM CDT DTL Chloride, S 97(L) 98 - 107 mmol/L 05/21/2025 4:05 PM CDT DTL Bicarbonate, S 26 22 - 29 mmol/L 05/21/2025 4:05 PM CDT DTL Anion Gap 14 7 - 15 05/21/2025 4:05 PM CDT DTL BUN (Blood Urea Nitrogen), S 20 8 - 24 mg/dL 05/21/2025 4:05 PM CDT DTL Creatinine 1.07 0.74 - 1.35 mg/dL 05/21/2025 4:05 PM CDT DTL Estimated GFR (eGFR) 77 >=60 mL/min/BSA 05/21/2025 4:05 PM CDT DTL Comment: Estimated GFR calculated using the 2020 CKD_EPI creatinine equation. Calcium, Total, S 10.1 8.8 - 10.2 mg/dL 05/21/2025 4:05 PM CDT DTL Glucose, S 252(H) 70 - 140 mg/dL 05/21/2025 4:05 PM CDT DTL Blood (Blood, Venous) 05/21/2025 3:19 PM CDT 05/21/2025 3:39 PM CDT Marco Webb M.D., Ph.D. LAB BLOOD ADD-ON Fin al Result [facility] [address] [place] [address], [facility] [address] [place] [address] * CARDIOPULMONARY (VO2) EXERCISE TEST (05/21/2025 12:27 PM CDT) 05/21/2025 10:2 1 AM CDT Narrative [facility] CV MERGE - 05/21/2025 12:56 PM CDT See PDF For Result Procedure Note Ana Luisa Sparks M.D. - 05/21/2025 See PDF For Result Quan Reeves M.D., Ph.D. CV STRESS PROCEDURES Fi nal Result CV MERGE NA * Lower Extremity Arterial (ARNALDO) - Exercise (Claudication) (05/21/2025 10:15 AM CDT) Anatomical Region Laterality Modality Other 05/21/2025 9:18 AM CDT Narrative 05/21/2025 11:49 AM CDT Right: Doppler Waveforms: Normal at all levels evaluated. Resting Index: ARNALDO (PT)- 1.08 ARNALDO (DP)- 1.11 TBI- 0.65 Post-Exercise ARNALDO: 1.09 Post-Exercise CF Doppler: Normal. Left: Doppler Waveforms: Normal at all levels evaluated. Resting Index: ARNALDO (PT)- 1.03 ARNALDO (DP)- 1.04 TBI- 0.61 Post-Exercise ARNALDO: 1.15 Post-Exercise CF Doppler: Normal. General: Patient exercised at speed of 2.0 mph (10% grade) for 5 minutes ( yards). Standard protocol: 2.0 mph (10% grade) for 5 minutes (283 yards). Onset of symptoms at 4:40 (263 yards). Exercise terminated at completion of protocol. Conclusions: Normal rest and post exercise lower extremity arterial study. No evidence of lower extremity peripheral arterial disease The patient exercised on the treadmill at 2 mph and completed the full 5 minute, 283 yard exercise protocol. During exercise she developed symptoms of bilateral thigh and calf soreness which can not be explained on a vascular basis, Exercise ECG was negative for ischemia Compared to the previous outside study 01/15/2022 there is no significant change. Procedure Note Tawanda Denise M.B., B.Ch. - 05/21/2025 Right: Doppler Waveforms: Normal at all levels evaluated. Resting Index:ARNALDO (PT)- 1.08 ARNALDO (DP)- 1.11 TBI- 0.65Post-Exercise ARNALDO: 1.09 Post-Exercise CF Doppler: Normal. Left: Doppler Waveforms: Normal at all levels evaluated. Resting Index:ARNALDO (PT)- 1.03 ARNALDO (DP)- 1.04 TBI- 0.61Post-Exercise ARNALDO: 1.15 Post-Exercise CF Doppler: Normal. General: Patient exercised at speed of 2.0 mph (10% grade) for 5 minutes( yards). Standard protocol: 2.0 mph (10% grade) for 5 minutes (283yards). Onset of symptoms at 4:40 (263 yards). Exercise terminatedat completion of protocol. Conclusions: Normal rest and post exercise lower extremity arterialstudy. No evidence of lower extremity peripheral arterial disease Thepatient exercised on the treadmill at 2 mph and completed the full 5minute, 283 yard exercise protocol. During exercise she developed symptoms of bilateral thigh and calfsoreness which can not be explained on a vascular basis, Exercise ECG wasnegative for ischemia Compared to the previous outside study 01/15/2022there is no significant change. Rupert Jacobs M.D. CV VASCULAR PROCEDURES Fin al Result * (TTE) 2D ECHO DOPPLER COLOR (05/21/2025 8:38 AM CDT) Ejection Fraction 56 MC CV EIMS Sinus of Valsalva 33 MC CV EIMS Proximal Ascending Aorta 33 MC CV EIMS Mid-Ascending Aorta 35 MC CV EIMS LV Mass Index 75 MC CV EIMS LV End-Diastolic Diameter 44 MC CV EIMS LV End-Systolic Diameter 29 MC CV EIMS LV End-Diastolic Volume 142 MC CV EIMS LV End-Systolic Volume 63 MC CV EIMS MV E Velocity 0.5 MC CV EIMS MV A Velocity 0.7 MC CV EIMS MV E/A 0.71 MC CV EIMS MV e' Velocity Medial 0.07 MC CV EIMS MV e' Velocity Lateral 0.11 MC CV EIMS MV E/e' Medial 7.1 MC CV EIMS MV E/e' Lateral 4.5 MC CV EIMS Left ventricular stroke volume index 41 MC CV EIMS Cardiac Output 4.62 MC CV EIMS Cardiac Index 2.36 MC CV EIMS LV Global Longitudinal Strain -16 MC CV EIMS LV Interventricular Septal Wall Thickness 10 MC CV EIMS LV Posterior Wall Thickness 10 MC CV EIMS LV Relative Wall Thickness 45 MC CV EIMS RV 4-Chamber Basal Diameter 25 MC CV EIMS RV 4-Chamber Mid Diameter 24 MC CV EIMS RV 4-Chamber Length 71 MC CV EIMS Tricuspid Annular S 0.11 MC CV EIMS TR Vmax 2.2 MC CV EIMS Estimated RA Pressure (Echo RAP) 5 MC CV EIMS RV Systolic Pressure (with Echo RAP) 24 MC CV EIMS AV mean gradient 26 MC CV EIMS Aortic valve area 1.06 MC CV EIMS Aortic Valve Area Index 0.54 MC CV EIMS Aortic Valve Dimensionless Index 0.31 MC CV EIMS AV regurgitant volume 54 MC CV EIMS LA Volume Index 31 MC CV EIMS Aortic Valve Systolic Peak Velocity 3.3 MC CV EIMS Anatomical Region Laterality Modality Echocardiography 05/21/2025 7:14 AM CDT Impressions 05/21/2025 9:55 AM CDT LEFT VENTRICLE:Normal left ventricular chamber size. Normal left ventricular wall thickness. Calculated 2-D biplane volumetric left ventricular ejection fraction of 56% without the use of ultrasound enhancing agent. No regional wall motion abnormalities. Grade 1/3 left ventricular diastolic dysfunction, consistent with low to normal left ventricular filling pressure. RIGHT VENTRICLE:Normal right ventricular chamber size. Normal right ventricular systolic function. Right ventricular systolic pressure 24 mmHg (right atrial pressure of 5 mmHg). ATRIA:Normal left atrial size. Left atrial volume index 31 ml/m2. Normal right atrial size. CARDIAC VALVES:Indeterminate number of cusps of the aortic valve. Calcified aortic valve. Moderate aortic valve stenosis. Aortic valve systolic mean Doppler gradient 26 mmHg. Aortic valve area by Doppler 1.06 cm2. Moderate aortic valve regurgitation. Mildly thickened mitral valve. Mild mitral valve regurgitation. Normal pulmonary valve. Normal pulmonary valve systolic velocities. Trivial pulmonary valve regurgitation. Normal tricuspid valve. Trivial tricuspid valve regurgitation. OTHER ECHO FINDINGS:Normal inferior vena cava size with normal inspiratory collapse (>50%). Normal mid ascending aorta diameter of 35 mm. Abdominal aorta incompletely visualized. Normal abdominal aorta Doppler flow pattern. Holodiastolic flow reversals in the descending thoracic aorta. No evidence of coarctation of aorta. No atrial level shunt by color flow imaging. No intracardiac mass or thrombus, but the left atrial appendage cannot be visualized adequately with transthoracic echo to exclude thrombus in this location. No pericardial effusion. For the complete report, see the Order-Level Documents. Narrative 05/21/2025 9:55 AM CDT For the complete report, see the Order-Level Documents. Hemodynamics Heart Rate: 58 BPM Blood Pressure: 129 / 86 mmHg ECG: Sinus rhythm Final Impressions 1. Moderate aortic valve stenosis, systolic mean Doppler gradient 26 mmHg, valve area by Doppler 1.06 cm2. 2. Indeterminate number of cusps of the aortic valve , previously identified as bicuspid. Moderate aortic valve regurgitation. 3. Normal mid ascending aorta diameter of 35 mm. 4. Normal left ventricular chamber size, no regional wall motion abnormalities . Calculated ejection fraction 55 %. 5. Grade 1/3 left ventricular diastolic dysfunction, consistent with low to normal left ventricular filling pressure. 6. Normal right ventricular chamber size, normal systolic function, right ventricular systolic pressure 24 mmHg (right atrial pressure of 5 mmHg). 7. No pericardial effusion. Procedure Note Mikel Willard M.D., Ph.D. - 05/21/2025 For the complete report, see the Order-Level Documents. Hemodynamics Heart Rate: 58 BPM Blood Pressure: 129 / 86 mmHg ECG: Sinus rhythm Final Impressions 1. Moderate aortic valve stenosis, systolic mean Doppler gradient 26mmHg, valve area by Doppler 1.06 cm2. 2. Indeterminate number of cusps of the aortic valve , previouslyidentified as bicuspid. Moderate aortic valve regurgitation. 3. Normal mid ascending aorta diameter of 35 mm. 4. Normal left ventricular chamber size, no regional wall motionabnormalities . Calculated ejection fraction 55 %. 5. Grade 1/3 left ventricular diastolic dysfunction, consistent with lowto normal left ventricular filling pressure. 6. Normal right ventricular chamber size, normal systolic function, rightventricular systolic pressure 24 mmHg (right atrial pressure of 5 mmHg). 7. No pericardial effusion. Findings LEFT VENTRICLE:Normal left ventricular chamber size. Normal leftventricular wall thickness. Calculated 2-D biplane volumetric leftventricular ejection fraction of 56% without the use of ultrasoundenhancing agent. No regional wall motion abnormalities. Grade 1/3 leftventricular diastolic dysfunction, consistent with low to normal leftventricular filling pressure. RIGHT VENTRICLE:Normal right ventricular chamber size. Normal rightventricular systolic function. Right ventricular systolic pressure 24 mmHg(right atrial pressure of 5 mmHg). ATRIA:Normal left atrial size. Left atrial volume index 31 ml/m2. Normalright atrial size. CARDIAC VALVES:Indeterminate number of cusps of the aortic valve.Calcified aortic valve. Moderate aortic valve stenosis. Aortic valvesystolic mean Doppler gradient 26 mmHg. Aortic valve area by Doppler 1.06cm2. Moderate aortic valve regurgitation. Mildly thickened mitral valve.Mild mitral valve regurgitation. Normal pulmonary valve. Normal pulmonaryvalve systolic velocities. Trivial pulmonary valve regurgitation. Normaltricuspid valve. Trivial tricuspid valve regurgitation. OTHER ECHO FINDINGS:Normal inferior vena cava size with normal inspiratorycollapse (>50%). Normal mid ascending aorta diameter of 35 mm. Abdominalaorta incompletely visualized. Normal abdominal aorta Doppler flowpattern. Holodiastolic flow reversals in the descending thoracic aorta. Noevidence of coarctation of aorta. No atrial level shunt by color flowimaging. No intracardiac mass or thrombus, but the left atrial appendagecannot be visualized adequately with transthoracic echo to excludethrombus in this location. No pericardial effusion. For the complete report, see the Order-Level Documents. Quan Reeves M.D., Ph.D. CV ECHO PROCEDURES Hayley veliz Result * (ABNORMAL) Lipid Panel (09/30/2024 8:40 AM RESISTOR INSPECTOR) Triglycerides 101 mg/dL 09/30/2024 9:52 AM RESISTOR INSPECTOR DTL Comment: ----REFERENCE VALUE---- Normal: <150 mg/dL Borderline High: 150-199 mg/dL High: 200-499 mg/dL Very High: > or =500 mg/dL Cholesterol, Total 201(H) mg/dL 2024 9:52 AM RESISTOR INSPECTOR DTL Comment: ----REFERENCE VALUE---- Desirable: < 200 mg/dL Borderline High: 200 - 239 mg/dL High: > or = 240 mg/dL Cholesterol, LDL, Calculated 147(H) mg/dL 09/30/2024 9:52 AM RESISTOR INSPECTOR DTL Comment: ----REFERENCE VALUE---- Desirable: <100 mg/dL Above Desirable: 100-129 mg/dL Borderline High: 130-159 mg/dL High: 160-189 mg/dL Very High: >=190 mg/dL ----ADDITIONAL INFORMATION---- LDL cholesterol calculated using the Lozoya/NIH equation. Cholesterol, HDL, S 36(L) >=40 mg/dL 09/30/2024 9:52 AM RESISTOR INSPECTOR DTL Cholesterol, Non-HDL, Calculated 165(H) mg/dL 09/30/2024 9:52 AM RESISTOR INSPECTOR DTL Comment: ----REFERENCE VALUE---- Desirable: <130 mg/dL Above Desirable: 130-159 mg/dL Borderline High: 160-189 mg/dL High: 190-219 mg/dL Very High: > or =220 mg/dL Fasting (8 HR or more) Yes 09/30/2024 8:40 AM RESISTOR INSPECTOR DTL Blood (Blood, Venous) 09/30/2024 8:40 AM RESISTOR INSPECTOR 09/30/2024 9:26 AM RESISTOR INSPECTOR Herbert Ho M.D. LAB BLOOD ADD-ON Final Resu lt [facility] [address] [place] [address], [facility] [address] [place] [address] from Last 3 Months or Most Recently Relevant to Health Maintenance [place] [address] MEDICARE Care Teams Material Lister Relationship Specialty Start Date End Date Elsewhere, Pcp PCP - General Internal Medicine 05/06/24
--- OUTSIDE RECORDS SUMMARY | 2025-07-29 19:26 | XMS_ITS | Encounter Summary ---
Author Organization [facility] Address [address] [place] [id number] Care Team Providers Care Greaser Helper Name Role Phone Elsewhere, Pcp Primary Care Provider Unavailabl e Encounter Details Date Type Department Care Team (Latest Contact Info) Description 06/25/2025 Results Follow-Up Department of Cardiovascular Medicine in [place], [place] [address] [place] [address] Rupert Jacobs M.D. [address] [place] [address] Cardiac Perfusion Rest and Stress Social History Tobacco Use Types Packs/Day Years [...] needed for daily living? Patient declined 05/16/2025 [facility] Utilities Answer Date Recorded In the [...] PM CDT Legal Sex Male 4:01 PM [employer] Gender Identity Male 05/24/2025 2:43 PM CDT Sexual Orientation Straight 05/24/2025 2: 43 PM CDT documented as of this encounter Plan of Treatment Not on file documented as of this encounter Visit Diagnoses Not on filedocumented in this encounter Care Teams Greaser Helper Relationship Specialty Start Date End Date Elsewhere, Pcp PCP - General Internal Medicine 05/06/24 documented as of this encounter
--- NOTE | 2025-07-29 20:21 | ED.GENADULT ---
HPI - General Adult General Chief complaint: Shortness of Breath/Dyspnea Stated complaint: Numb, hard to breath Time Seen by Provider: 07/29/25 19:27 Source: patient Mode of arrival: ambulatory Limitations: no limitations History of Present Illness HPI narrative: 65-year-old male presenting today with an episode of shortness of breath. Patient states that approximately 20 minutes prior to presenting to the ER he was sitting at home watching television when he felt a knot in his stomach. He believes that this is his body's way of telling him that something is wrong. It lasted a couple of minutes and during this time both of his hands felt tingly and he felt like he could not take a deep enough breath. Patient tells me that he had a coronary angiogram done on July 06 and multiple blockages were found. He has not heard back on next steps and he is afraid that he is going to have a heart attack any minute. He is currently asymptomatic. Has past medical history significant for personality disorder, chronic alcohol use disorder in remission, social anxiety disorder, bicuspid aortic valve, hypertension, PTSD, hyperlipidemia, sleep apnea, heart murmur, history of TIA. Related Data Home Medications ?Medication ?Instructions ?Recorded ?Confirmed zolpidem 10 mg tablet 10 mg PO PRN 05/09/22 07/17/23 cholecalciferol (vitamin D3) 125 125 mcg PO DAILY 02/11/23 07/17/23 mcg (5,000 unit) tablet amoxicillin 875 mg-potassium 1 tab PO Q12H 07/17/23 07/17/23 clavulanate 125 mg tablet amitriptyline 10 mg tablet 10 mg PO QPM 07/13/24 07/13/24 aspirin 81 mg chewable tablet 1 tab PO DAILY 07/13/24 07/13/24 brimonidine 0.2 %-timolol 0.5 % 1 drp ophthalmic (eye-left) BID 07/13/24 07/13/24 eye drops (Combigan) chlorthalidone 25 mg tablet PO 07/13/24 enalapril maleate 5 mg tablet mg PO 07/13/24 metformin 500 mg tablet,extended 500 mg PO DAILY 07/13/24 07/13/24 release 24 hr Allergies Allergy/AdvReac Type Severity Reaction Status Date / Time fluoxetine (From CorticazaEvotec) Allergy Severe suicidal Verified 05/15/25 22:14 prednisone Allergy Severe suicidal, Verified 05/15/25 22:14 agitation lisinopril Allergy Intermediate joint Verified 05/15/25 22:14 pain, weakness azelastine Allergy Mild burned nose Verified 05/15/25 22:14 Sulfa (Sulfonamide Allergy Mild Hives Verified 05/15/25 22:14 Antibiotics) Review of Systems Status of ROS: Reports: 10 or more systems reviewed and unremarkable except as noted in History and below PFSH [facility] Medical History Bicuspid aortic valve ?Q23.1 - Congenital insufficiency of aortic valve (ICD-10) Mitral valve disease ?I05.9 - Rheumatic mitral valve disease, unspecified (ICD-10) Essential hypertension ?I10 - Essential (primary) hypertension (ICD-10) History of posttraumatic stress disorder (PTSD) ?Z86.59 - Personal history of other mental and behavioral disorders (ICD-10) Hyperlipidemia ?E78.5 - Hyperlipidemia, unspecified (ICD-10) Bilateral cataracts ?H26.9 - Unspecified cataract (ICD-10) Blindness of one eye ?H54.40 - Blindness, one eye, unspecified eye (ICD-10) History of attention deficit disorder ?Z86.59 - Personal history of other mental and behavioral disorders (ICD-10) Sleep apnea ?G47.30 - Sleep apnea, unspecified (ICD-10) Murmur ?R01.1 - Cardiac murmur, unspecified (ICD-10) History of personality disorder ?Z86.59 - Personal history of other mental and behavioral disorders (ICD-10) Alcohol use disorder, moderate, in sustained remission ?F10.21 - Alcohol dependence, in remission (ICD-10) Social anxiety disorder ?F40.10 - Social phobia, unspecified (ICD-10) History of TIA (transient ischemic attack) ?Z86.73 - Personal history of transient ischemic attack (TIA), and cerebral infarction without residual deficits (ICD-10) Surgical History History of tonsillectomy ?Z90.89 - Acquired absence of other organs (ICD-10) History of cataract removal with insertion of prosthetic lens ?Z98.49 - Cataract extraction status, unspecified eye (ICD-10) ?Z96.1 - Presence of intraocular lens (ICD-10) History of arthroscopy of left shoulder ?Z98.890 - Other specified postprocedural states (ICD-10) Social History Smoking Status: Former smoker Do you use any of these nicotine containing products: None Second hand tobacco smoke exposure: No How often do you have a drink containing alcohol: monthly or less AUDIT-C Alcohol total score: 1 Non-prescribed substance use: denies use service: No Exam Narrative: Exam Narrative: Well-nourished well-developed patient in no acute distress. Alert and oriented. Answers questions appropriately. Mood and affect are appropriate. Patient speaks in full sentences without needing to catch his breath. HEENT: Normocephalic atraumatic. Pupils are equally round reactive to light. Extraocular muscles are intact. Conjunctivae are moist without any icterus noted. Moist mucous membranes. Cardiovascular: Heart is regular rate and rhythm S1 and S2 are present with a 2/6 systolic murmur. Lungs: Clear to auscultation bilaterally no wheezes rhonchi or rales are appreciated. Patient takes deep breaths without any discomfort. Abdomen: Soft and nontender nondistended with normal bowel sounds. Extremities: Bilateral lower extremities are without edema. Skin: Well perfused. Const: Vital Signs, click to edit/add: Vital Signs - 24 hr 07/29/25 19:30 07/29/25 19:31 07/29/25 19:31 Temperature 97.6 F Pulse Rate [Pulse Oximeter] 78 Respiratory Rate 16 18 Blood Pressure 151/89 H Blood Pressure [Ri ght Upper Arm] 151/89 H Pulse Oximetry 99 Oxygen Delivery Me thod Room Air 07/29/25 19:41 07/29/25 19:45 07/29/25 19:49 Temperature Pulse Rate [Pulse Oximeter] Respiratory Rate 11 L 9 L 15 Blood Pressure Blood Pressure [Ri ght Upper Arm] Pulse Oximetry Oxygen Delivery Me thod Course Course ED Course: It sounds very much like patient had a a short episode of anxiety. However, we did proceed with a more thorough workup. EKG, read by me, shows normal sinus rhythm with a pulse of 73. Normal SD, QRS and QTC intervals. Blood work normal. Vital Signs Vital signs: Initial Vital Signs Blood Pressure 151/89 H 07/29/25 19:30 Blood Pressure Mean 109 H 07/29/25 19:30 Vital Signs Blood Pressure 151/89 H 07/29/25 19:30 Temperature 97.6 F 07/29/25 19:31 Pulse Rate 78 07/29/25 19:31 Respiratory Rate 15 07/29/25 19:49 Blood Pressure 151/89 H 07/29/25 19:31 Pulse Oximetry 99 07/29/25 19:31 Oxygen Delivery Method Room Air 07/29/25 19:31 Medical Decision Making MDM Narrative Medical decision making narrative: 65-year-old male with an episode of anxiety. Recommend he follow-up with his primary care pecan sheller to discuss the results of his angiogram and what next steps are if there are any. We discussed reasons to return to the ER. Patient felt comfortable with this plan and had no other questions. Lab Data Lab results reviewed: Yes I reviewed the patient's lab results Labs: Lab Results 07/29/25 Range/Units 20:17 WBC 5.31 (4.50-11.00) K/uL RBC 4.64 (4.30-5.90) m/uL Hgb 14.4 (13.5-17.5) gm/dL Hct 42.6 (37.0-53.0) % MCV 92 (80-100) fL MCH 31 (26-34) pg MCHC 34 (32-36) gm/dL RDW Coeff of Remi 12.2 (11.5-15.5) % Plt Count 244 (140-440) K/uL Neut % (Auto) 50.6 (42.0-72.0) % Lymph % (Auto) 33.9 (20-44) % [place] % (Auto) 10.4 (0.0-11.0) % Eos % (Auto) 4.3 (0.0-7.0) % Baso % (Auto) 0.6 (0.0-3.0) % Neut # (Auto) 2.69 (1.7-7.0) K/uL Lymph # (Auto) 1.80 (0.90-2.90) K/uL [place] # (Auto) 0.60 (0.00-0.90) K/UL Eos # (Auto) 0.23 (0.00-0.50) K/uL Baso # (Auto) 0.03 (0.00-0.30) K/uL Abs Immat Gran (auto) 0.01 (0.00-0.30) K/uL Imm/Tot Granulo (auto) 0.2 % Sodium 136 (135-149) mmol/L Potassium 4.0 (3.6-5.1) mmol/L Chloride 102 (96-114) mmol/L Carbon Dioxide 22 (20-32) mmol/L Anion Gap 12 (7-15) mEq/L BUN 18 (7-30) mg/dL Creatinine 0.9 (0.5-1.5) mg/dL Estimated GFR 94 ml/min Glucose 179 H (60-115) mg/dL Calcium 9.5 (8.4-10.6) mg/dL Total Bilirubin 0.4 (0.1-1.5) mg/dL Direct Bilirubin 0.3 (0.0-0.5) mg/dL AST 33 (12-35) U/L ALT 46 (4-50) U/L Alkaline Phosphatase 55 (40-150) U/L Troponin I < 0.01 (0.01-0.04) ng/mL C-Reactive Protein < 0.5 L (0.5-1.0) mg/dL Total Protein 7.5 (6.0-8.3) g/dL Albumin 4.4 (3.3-5.0) g/dL Lipase 56 (23-300) U/L ECG Data Attestation: I personally reviewed and interpreted this ECG as follows: Discharge Plan Discharge Clinical Impression: Anxiety Patient Disposition: Home, Self-Care Condition: Stable Additional Instructions: Recommend you follow-up with primary care provider or pecan sheller to discuss the results of your angiogram and discuss next steps. Return to the emergency department if you develop shortness of breath, chest pain, or vomiting. Prescriptions: No Action amoxicillin-pot clavulanate 875-125 mg tablet 1 tab PO Q12H zolpidem 10 mg tablet 10 mg PO PRN cholecalciferol (vitamin D3) 125 mcg (5,000 unit) tablet 125 mcg PO DAILY enalapril maleate 5 mg tablet PO chlorthalidone 25 mg tablet PO amitriptyline 10 mg tablet 10 mg PO QPM aspirin 81 mg tablet,chewable 1 tab PO DAILY metformin 500 mg tablet extended release 24 hr 500 mg PO DAILY brimonidine-timolol [Combigan] 0.2-0.5 % drops 1 drp ophthalmic (eye-left) BID Follow Up/Referrals: Breezy Glynn MD [Primary Care Provider, Family Practice] Stand Alone Forms: [facility] Info Instructions
[2025-07-29 20:24] LABS: Hematocrit* 42.6 % (37.0-53.0); Hemoglobin* 14.4 gm/dL (13.5-17.5); Immature Granulocytes Abs Auto 0.01 K/uL (0.00-0.30); Immature Granulocytes Pct Auto 0.2 %; Lymphocytes Absolute Auto 1.80 K/uL (0.90-2.90); Mean Corpuscular HGB Conc 34 gm/dL (32-36); Mean Corpuscular Hemoglobin 31 pg (26-34); Mean Corpuscular Volume 92 fL (80-100); RDW Coefficient of Variation % 12.2 % (11.5-15.5); Red Blood Count* 4.64 m/uL (4.30-5.90); White Blood Count* 5.31 K/uL (4.50-11.00)
[2025-07-29 20:27] LABS: Slide Review Reflex No
[2025-07-29 21:05] LABS: Albumin* 4.4 g/dL (3.3-5.0); Chloride* 102 mmol/L (96-114)
[2025-07-29 21:06] LABS: Potassium* 4.0 mmol/L (3.6-5.1); Sodium* 136 mmol/L (135-149)
[2025-07-29 21:08] LABS: Blood Urea Nitrogen* 18 mg/dL (7-30); Creatinine* 0.9 mg/dL (0.5-1.5); Estimated Glomerular Filt Rate 94 ml/min
[2025-07-29 21:09] LABS: Alanine Aminotransferase* 46 U/L (4-50); Alkaline Phosphatase* 55 U/L (40-150); Anion Gap 12 mEq/L (7-15); Aspartate Amino Transferase* 33 U/L (12-35); Bilirubin Direct* 0.3 mg/dL (0.0-0.5); Bilirubin Total* 0.4 mg/dL (0.1-1.5); Calcium* 9.5 mg/dL (8.4-10.6); Carbon Dioxide* 22 mmol/L (20-32); Glucose* 179 mg/dL (60-115); Total Protein* 7.5 g/dL (6.0-8.3)
== END 2025-07-29 21:47 | disposition home or self-care (01) ==
PROVIDERS: Emergency Provider Family Medicine; PCP Family Medicine
DX: F41.9 Anxiety disorder, unspecified (principal)
CPT/HCPCS: 36415; 80048; 80076; 83690; 84484; 85025; 86140; 93005; 99284